=== PATIENT | male | born 1945 | race Caucasian/White ===

== ENCOUNTER 2019-10-20 08:22 | Outpatient (CLI) | payer MEDICARE, SELFPAY ==
--- NOTE | ~2019-10-20 | XR_ITS ---
EXAMINATION: XR abdomen/kub 1V INDICATION: Left-sided kidney stone TECHNIQUE: Supine views of the abdomen were obtained on 2 radiographs. COMPARISON: 04/15/2019 FINDINGS: An unchanged 6 mm stone projects in the lower pole of the right kidney and a 3 mm stone is seen in the upper pole. There is a stable 5 mm stone of the left kidney upper pole. Phleboliths of th e pelvis are unchanged in configuration. Calcifications of the right upper quadrant just right of mid line may reflect gallstones. The bowel gas pattern is normal. There is mild lumbar spondylosis and mi ld right hip osteoarthritis. IMPRESSION: 1. Bilateral nephrolithiasis. Reviewed, dictated and finalized at location A. [employer]
== END 2019-10-20 08:23 | disposition home or self-care (01) ==
LOC: ANHIMG 08:30
PROVIDERS: PCP Physician Assistant; Visit Provider Urology
DX: N20.0 Calculus of kidney (principal)
CPT/HCPCS: 74018

== ENCOUNTER 2020-11-15 11:25 | Outpatient (CLI) | payer MEDICARE, SELFPAY ==
--- NOTE | ~2020-11-15 | XR_ITS ---
EXAMINATION: XR abdomen/kub 1V EXAM DATE: 11/15/2020 11:49 INDICATION: Left kidney stone. TECHNIQUE: Frontal projection of the upper abdomen, frontal projection lower abdomen/pelvis for inter pretation. Comparison is made to prior examination from 10/20/2019. FINDINGS: There is moderate amount of colonic stool and gas. This is obscuring the renal contours. No small bowel dilation, nonobstructive bowel gas pattern. Probable reidentification bilateral nephr olithiasis measuring about 5 mm on the right. Calcifications in the pelvis are believed to be phlebol iths. There is no organomegaly suspected. The bones are unremarkable. There is no free intrape ritoneal air. The lung bases are clear. IMPRESSION: Nephrolithiasis. Reviewed, dictated and finalized at location A. IMPRESSION: Nephrolithiasis.
== END 2020-11-15 11:26 | disposition home or self-care (01) ==
PROVIDERS: PCP Physician Assistant; Visit Provider Urology
DX: N20.0 Calculus of kidney (principal)
CPT/HCPCS: 74018

== ENCOUNTER 2021-11-13 09:14 | Outpatient (CLI) | payer MEDICARE, SELFPAY ==
--- NOTE | ~2021-11-13 | XR_ITS ---
XR abdomen/kub 1V 11/13/2021 09:31 INDICATION: Renal stone TECHNIQUE: KUB COMPARISON: Comparison to multiple prior studies sequentially, with oldest reviewed study dated 10/19. FINDINGS: Bowel gas pattern is normal. There is no evidence of free air, mass, organomegaly, ascites or obstruction. Stable bilateral renal stones. The bones appear intact. There are pelvic phleboliths . Lung bases are unremarkable. IMPRESSION: 1: Bilateral nephrolithiasis.. Reviewed, dictated and finalized at location B.
== END 2021-11-13 09:15 | disposition home or self-care (01) ==
PROVIDERS: PCP Physician Assistant; Visit Provider Urology
DX: N20.0 Calculus of kidney (principal)
CPT/HCPCS: 74018

== ENCOUNTER 2022-11-19 09:43 | Outpatient (CLI) | payer MEDICARE, SELFPAY ==
--- NOTE | ~2022-11-19 | XR_ITS ---
EXAMINATION: XR abdomen/kub 1V INDICATION: Nephrolithiasis TECHNIQUE: Supine views of the abdomen were obtained on 2 radiographs. COMPARISON: 11/13/2021 FINDINGS: There is a stable 5 mm stone projecting in the right kidney lower pole. Stable stones measu ring 3 mm of the left kidney. No stones are identified along the expected courses of the ureters or w ithin the urinary bladder. There are phleboliths of the pelvis. The bowel gas pattern is normal. IMPRESSION: 1. Stable bilateral nephrolithiasis. Reviewed, dictated and finalized at location L.
== END 2022-11-19 09:44 | disposition home or self-care (01) ==
PROVIDERS: PCP Physician Assistant; Visit Provider Urology
DX: N20.0 Calculus of kidney (principal)
CPT/HCPCS: 74018

== ENCOUNTER 2023-12-04 14:08 | Outpatient (CLI) | payer MEDICARE, SELFPAY ==
--- NOTE | ~2023-12-04 | CT_ITS ---
EXAMINATION: CT abdomen pelvis wo con DATE: 12/04/2023 14:26 INDICATION: Left kidney stones follow-up TECHNIQUE: Computed tomography (CT) of the abdomen and pelvis was performed without intravenous contr ast. Automated exposure control and iterative reconstruction technique were employed. Exam dose: 213 .22 mGy-cm total exam DLP. COMPARISON: 11/19/2022 KUB FINDINGS: Posterior basilar right lower lobe prominent calcified pulmonary granuloma. Discoid atelect asis or scar, posterior basilar right lower lobe. The included lung bases are clear of consolidation. Right atrial and right ventricular pacemaker leads. Normal heart size. No pericardial or pleural effu timoteo. The liver, gallbladder, bile ducts, pancreas, pancreatic duct and spleen as well and is adrenal gland s appear normal on this limited noncontrast examination. 5.3 cm, 4.3 and 1.7 cm exophytic left renal probable cysts. Multiple bilateral nonobstructing renal calculi measuring up to 6 mm on each side, numbering approxim ately 8 total renal calculi on the right, 6 on the left. No right ureteral calculus. There are contiguous calculi of the distal left ureter, the most proximal measuring approximately 3.9 mm, the adjacent more distal calculus approximately 2.3 mm. No hydronephrosis is noted. No urinary bladder calculus. The prostate gland is unremarkable. There is atherosclerotic calcification but normal caliber of the abdominal aorta. No intraperitoneal or retroperitoneal or pelvic mass lesion or adenopathy or ascites. There are innumerable diverticula of the sigmoid and descending colon and occasional splenic flexure and right colon diverticula. No CT evidence of diverticulitis. Normal appendix. No bowel obstruction, bowel wall thickening, pneumatosis or intraperitoneal free air is detected. Diffuse idiopathic skeletal hyperostosis of the thoracic spine. 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 IMPRESSION: Nonobstructive nephrolithiasis 2 contiguous 4 and 2.3 mm distal left ureteral calculi, without hydronephrosis 3 left renal exophytic cysts Diverticulosis of the colon; no evidence of diverticulitis Normal appendix Reviewed, dictated and finalized at Location A. Reviewed, dictated and finalized at location B.
--- NOTE | ~2023-12-04 | XR_ITS ---
EXAMINATION: XR abdomen/kub 1V DATE: 12/04/2023 14:36 INDICATION: Left nephrolithiasis TECHNIQUE: A supine view of the abdomen on 2 radiographs was obtained. COMPARISON: CT dated 12/04/2023 and KUB dated 11/19/2022 FINDINGS: A few of the larger bilateral renal stones are visible on the plain radiographs with a few of the sma ller bilateral renal stones too small to be distinguished. There are couple larger calcified granulom a the medial posterior sulcus of the right lung. Combination of phleboliths and atherosclerotic calci fications in the pelvis on both the left and right. The pair of distal ureteral stones visualized on the prior CT can be seen projecting slightly cephalad to several unchanged phleboliths in the left he mipelvis. No dilated loops of gas-filled bowel to suggest obstruction. IMPRESSION: 1. Bilateral nephrolithiasis including a couple subtle small stones at the distalmost left ureter whi ch have been indicated on the image amongst a few of the chronic phleboliths. Reviewed, dictated and finalized at location A. IMPRESSION: 1. Bilateral nephrolithiasis including a couple subtle small stones at the dist almost left ureter which have been indicated on the image amongst a few of the chronic phleboliths.
== END 2023-12-04 14:09 | disposition home or self-care (01) ==
PROVIDERS: PCP Physician Assistant; Visit Provider Urology
DX: N20.0 Calculus of kidney (principal); K57.30 Diverticulosis of large intestine without perforation or abscess without bleeding
CPT/HCPCS: 74018; 74176

== ENCOUNTER 2024-12-14 01:15 | Day surgery (SDC) | payer MEDICARE, SELFPAY ==
[2024-12-07 10:17] VITALS: BMI 24.5
--- OUTSIDE RECORDS SUMMARY | 2024-12-14 01:17 | XMS_ITS | Encounter Summary ---
Author Organization [facility] Healthcare Address [address] [place] [address] Care Team Providers Care Pharmaceutical Physician Name Role Phone Vashti Garay FRONT [employer]AD Primary Care Provider [phone] Encounter Details Date Type Department Care Team (Late st Contact Info) Description 11/25/2024 Results Follow-Up [facility] Family Medicine at [address] [id number] Vashti Garay, [employer] [address] [place] [id number] Social History Tobacco Use Types Packs/Day Years Used Date Smoking Tobacco: Former Cigarettes Alcohol Use Standard Drinks/Week Comments Never 0 (1 standard drink = 0.6 oz pur e alcohol) AUDIT-C Answer Date Recorded Q1: How often do you have a drink containing alcohol? Never 11/24/2024 Q2: How many drinks containi ng alcohol do you have on a typical day when you are drinking? Patient does not drink Q3: How often do you have si x or more drinks on one occasion? Never 11/24/2024 PHQ-2 Answer Date Recorded PHQ-2 Total Score 0 06/16/2024 PHQ-9 Answer Date Recorded PHQ-9 Total Score 1 06/16/2024 Personal Safety Answer Date Recorded Have you ever been in or are you currently in a harmful physical or emotional relationship or is someone making you feel afraid or unsafe? Denies 06/26/2023 Sex and Gender Information Value Date Recorded Sex Assigned at Not on file Legal Sex Male 6:39 AM FINGERER Gender Identity Male 10/22/2021 9:05 AM FINGERER Sexual Orientation Not on file documented as of this encounter Plan of Treatment Not on file documented as of this encounter Visit Diagnoses Not on filedocumented in this encounter Care Teams Pharmaceutical Physician Relationship Specialty Start Date End Date Vashti Garay NP [address] [address] [place] [address] [place] [id number] PCP - General Family Medicine 11/24/24 documented as of this encounter
--- OUTSIDE RECORDS SUMMARY | 2024-12-14 01:18 | XMS_ITS | Clinical Summary ---
Author Organization [facility] at the Medical Office Building Address [address] [place] [id number] Care Team Providers Care Renewal Specialist Name Role Phone Tanisha Vashti MOORE Primary Care Provider [phone] Allergies No known active allergies Medications MULTIVITAMIN ORAL Rx: Multivitamin Act maira cholecalciferol , vitamin D3, (VITAMIN D3 ORAL) Take by mouth Active naloxone (NARCAN) 4 mg/actuation spray,non-aeros olIndications:C hronic narcotic use Administer 1 spray into affected nostril(s) as needed for opioid reversal Call 911. Administer a single spray in one nostril. Repeat every 3 minutes as needed if no or minimal response. 1 each 02/06/20 23 Active Restasis 0.05 % ophthalmic emulsion 07/17/20 23 Active aspirin 81 mg enteric coated tablet Take 1 tablet (81 mg total) by mouth daily Active tamsulosin (FLOMAX) 0.4 mg extended release capsuleIndicati ons:Benign prostatic hyperplasia with urinary retention Take 1 capsule (0.4 mg total) by mouth 2 (two) times a day 180 capsule 3 10/31/19 24 Active finasteride (PROSCAR) 5 mg tablet Take 1 tablet (5 mg total) by mouth daily 90 tablet 3 12/26/19 24 Active sotaloL (BETAPACE) 80 mg tablet Take 0.5 tablets (40 mg total) by mouth 2 (two) times a day 90 tablet 3 04/20/20 24 Active traZODone (DESYREL) 100 mg tablet Take 1 tablet (100 mg total) by mouth nightly 90 tablet 3 04/20/20 24 Active sertraline (ZOLOFT) 100 mg tabletIndicatio ns:Anxiety with depression TAKE 1 TABLET BY MOUTH EVERY DAY 90 tablet 1 09/03/19 25 Active atorvastatin (LIPITOR) 40 mg tablet Take 1 tablet (40 mg total) by mouth daily 90 tablet 1 09/03/19 25 Active cilostazoL (PLETAL) 100 mg tablet cilostazol 100 mg tablet Active dicyclomine (BENTYL) 10 mg capsuleIndicati ons:Irritable bowel syndrome, unspecified type Take 1 capsule (10 mg total) by mouth 4 (four) times a day 120 capsule 1 11/06/19 25 Active HYDROcodone-kwame taminophen (NORCO) 10-325 mg per tabletIndicatio ns:Pain Take 1 tablet by mouth every 4 (four) hours as needed for pain 180 tablet 11/22/[address] (PROTONIX) 40 mg EC tablet Take 1 tablet (40 mg total) by mouth daily 90 tablet 3 11/25/[address] (PROTONIX) 40 mg EC tablet Take 1 tablet (40 mg total) by mouth daily 90 tablet 3 12/26/19 24 025 Discontin ued(Reord er) famotidine (PEPCID) 40 mg tabletIndicatio ns:Other dysphagia Take 1 tablet (40 mg total) by mouth 2 (two) times a day 180 tablet 1 09/02/19 25 025 Discontin ued(Thera py completed ) HYDROcodone-kwame taminophen (NORCO) 10-325 mg per tabletIndicatio ns:Pain Take 1 tablet by mouth every 4 (four) hours as needed for pain 180 tablet 10/22/19 25 025 Discontin ued(Reord er) Active Problems Problem Noted Date Diagnosed Date GERD (gastroesophageal reflux disease) 5 Foot pain, bilateral 11/14/2023 Dysphagia 05/08/2023 Esophagogastric ulcer 05/08/2023 Actinic keratosis 03/19/2023 Assessment & Plan (03/19/2023 9:35 AM CDT): This is on his nose I am going to freeze it with liquid nitrogen I explained to him if it does not go away 100% we will need to do a punch biopsy Herpes zoster without complication 02/05/2023 Assessment & Plan (02/05/2023 2:09 PM CDT): A little late but will treat Anxiety with depression 04/25/2021 Assessment & Plan (02/05/2023 2:06 PM CDT): Now antonella will add low dose zoloft Assessment & Plan (04/09/2022 4:31 PM CDT): Not controlled, increasing medications, f/u 4 weeks Assessment & Plan (04/25/2021 11:24 AM CDT): This is uncontrolled, I am going to go ahead and start the patient on some BuSpar we did discuss the med use potential side effects he is going to give me an update in 6 weeks Hypertension 01/21/2020 Assessment & Plan (07/29/2023 3:39 PM PRODUCTION GRIP): This is a stable chronic condition. Monitor blood pressure, call if out of parameters as we discussed. Low sodium and caffeine diet. baby asa as discussed if applicable. Diet, exercise and weight reduction. Labs as ordered. F/U routine Assessment & Plan (04/23/2023 12:58 PM CDT): Patient presents with hypotension in office. Orthostatic vitals completed in office with normal results. CBC and CMP last completed 01/2023 with normal results. Patient to decrease sotalol from 60 mg BID to 40 mg BID. Patient to continue checking his blood pressure at home daily. Follow up in 2 weeks for blood pressure recheck. Assessment & Plan (03/19/2023 9:34 AM CDT): This is a stable chronic condition. We are going to leave him off his blood pressure medication due to some hypotension. Monitor blood pressure, call if out of parameters as we discussed. Low sodium and caffeine diet. baby asa as discussed if applicable. Diet, exercise and weight reduction. Labs as ordered. F/U routine Assessment & Plan (02/05/2023 2:04 PM CDT): Images from the original note were not included. This is a stable chronic condition. Monitor blood pressure, call if out of parameters as we discussed. Low sodium and caffeine diet. baby asa as discussed if applicable. Diet, exercise and weight reduction. Labs as ordered. F/U routine Assessment & Plan (11/14/2022 9:20 AM CDT): Images from the original note were not included. This is a stable chronic condition. Monitor blood pressure, call if out of parameters as we discussed. Low sodium and caffeine diet. baby asa as discussed if applicable. Diet, exercise and weight reduction. Labs as ordered. F/U routine Assessment & Plan (09/30/2022 4:18 PM PRODUCTION GRIP): Images from the original note were not included. This is a stable chronic condition. Monitor blood pressure, call if out of parameters as we discussed. Low sodium and caffeine diet. baby asa as discussed if applicable. Diet, exercise and weight reduction. Labs as ordered. F/U routine Assessment & Plan (06/11/2022 8:59 AM CDT): Images from the original note were not included. This is a stable chronic condition. Monitor blood pressure, call if out of parameters as we discussed. Low sodium and caffeine diet. baby asa as discussed if applicable. Diet, exercise and weight reduction. Labs as ordered. F/U routine Assessment & Plan (04/09/2022 4:32 PM CDT): Images from the original note were not included. This is a stable chronic condition. Monitor blood pressure, call if out of parameters as we discussed. Low sodium and caffeine diet. baby asa as discussed if applicable. Diet, exercise and weight reduction. Labs as ordered. F/U routine Assessment & Plan (04/24/2021 10:04 AM CDT): Images from the original note were not included. This is a stable chronic condition. Monitor blood pressure, call if out of parameters as we discussed. Low sodium and caffeine diet. baby asa as discussed if applicable. Diet, exercise and weight reduction. Labs as ordered. F/U routine Assessment & Plan (12/28/2020 3:29 PM CDT): This is a stable chronic condition. Monitor blood pressure, call if out of parameters as we discussed. Low sodium and caffeine diet. baby asa as discussed if applicable. Diet, exercise and weight reduction. Labs as ordered. F/U routine Irritable bowel syndrome 11/05/2018 Overview (02/15/2019): diet refill meds, add fibner, watch diet, discussed he should have another colonoscopy, he will consider Assessment & Plan (07/29/2023 3:39 PM PRODUCTION GRIP): This is diet controlled Assessment & Plan (03/19/2023 9:34 AM CDT): Currently controlled with diet will continue to follow Assessment & Plan (02/05/2023 2:05 PM CDT): Diet controlled Assessment & Plan (11/14/2022 9:20 AM CDT): controlled Assessment & Plan (09/30/2022 4:18 PM PRODUCTION GRIP): Diet controlled Assessment & Plan (05/15/2022 11:44 AM CDT): Controlled with diet Assessment & Plan (04/09/2022 4:32 PM CDT): Diet and fiber Assessment & Plan (11/07/2021 1:51 PM PRODUCTION GRIP): Diet controlled Assessment & Plan (04/18/2020 9:57 AM CDT): This is currently controlled with diet will continue to follow BMI 26.0-26.9,adult 06/11/2018 Assessment & Plan (10/19/2020 9:59 AM PRODUCTION GRIP): Healthy diet Benign prostatic hyperplasia 03/30/2018 Assessment & Plan (04/09/2022 4:32 PM CDT): Well controlled Assessment & Plan (04/24/2021 10:03 AM CDT): Stable and continue meds Assessment & Plan (10/19/2020 9:58 AM PRODUCTION GRIP): Controlled with meds Assessment & Plan (04/18/2020 9:56 AM CDT): We did discuss possibly increasing patient's medication 2.8 to see if this actually helps with his BPH patient will give me an update Assessment & Plan (12/27/2019 10:31 AM CDT): CPM, f/u prn Assessment & Plan (12/13/2019 10:19 AM CDT): Patient is to continue his current medication but he is to take his Flomax in the evenings before he goes to bed this may help with his lightheadedness Mixed hyperlipidemia 03/30/2018 Assessment & Plan (07/29/2023 3:39 PM PRODUCTION GRIP): Patient is to continue present medications, work on diet and exercise as discussed, we did discuss the medications and potential side effects and signs and symptoms that would warrant calling office. Follow up routine. Assessment & Plan (03/19/2023 9:34 AM CDT): Patient is to continue present medications, work on diet and exercise as discussed, we did discuss the medications and potential side effects and signs and symptoms that would warrant calling office. Follow up routine. Assessment & Plan (02/05/2023 2:05 PM CDT): Patient is to continue present medications, work on diet and exercise as discussed, we did discuss the medications and potential side effects and signs and symptoms that would warrant calling office. Follow up routine. Assessment & Plan (11/14/2022 9:20 AM CDT): Patient is to continue present medications, work on diet and exercise as discussed, we did discuss the medications and potential side effects and signs and symptoms that would warrant calling office. Follow up routine. Assessment & Plan (09/30/2022 4:18 PM PRODUCTION GRIP): Patient is to continue present medications, work on diet and exercise as discussed, we did discuss the medications and potential side effects and signs and symptoms that would warrant calling office. Follow up routine. Assessment & Plan (06/11/2022 8:59 AM CDT): Patient is to continue present medications, work on diet and exercise as discussed, we did discuss the medications and potential side effects and signs and symptoms that would warrant calling office. Follow up routine. Assessment & Plan (05/15/2022 11:44 AM CDT): Patient is to continue present medications, work on diet and exercise as discussed, we did discuss the medications and potential side effects and signs and symptoms that would warrant calling office. Follow up routine. Assessment & Plan (04/09/2022 4:32 PM CDT): Patient is to continue present medications, work on diet and exercise as discussed, we did discuss the medications and potential side effects and signs and symptoms that would warrant calling office. Follow up routine. Assessment & Plan (12/28/2020 3:30 PM CDT): Patient is to continue present medications, work on diet and exercise as discussed, we did discuss the medications and potential side effects and signs and symptoms that would warrant calling office. Follow up routine. Assessment & Plan (10/19/2020 9:58 AM PRODUCTION GRIP): Patient is to continue present medications, work on diet and exercise as discussed, we did discuss the medications and potential side effects and signs and symptoms that would warrant calling office. Follow up routine. Assessment & Plan (04/18/2020 9:58 AM CDT): Continue current medications and diet labs as ordered follow-up routine Assessment & Plan (12/27/2019 10:31 AM CDT): Patient is to continue present medications, work on diet and exercise as discussed, we did discuss the medications and potential side effects and signs and symptoms that would warrant calling office. Follow up routine. Assessment & Plan (12/13/2019 10:19 AM CDT): Patient is to continue present medications, work on diet and exercise as discussed, we did discuss the medications and potential side effects and signs and symptoms that would warrant calling office. Follow up routine. Sick sinus syndrome (CMS/HCC) 03/30/2018 Overview (02/15/2019): seeing cardiology, has pace maker Assessment & Plan (02/05/2023 2:05 PM CDT): Stable and seeing cardiology Assessment & Plan (05/15/2022 11:46 AM CDT): Patient is stable and had pace maker Assessment & Plan (04/09/2022 4:33 PM CDT): Stable seeing cardiology Assessment & Plan (11/07/2021 1:51 PM PRODUCTION GRIP): Seeing cardiology Assessment & Plan (04/24/2021 10:04 AM CDT): Cardiology following Assessment & Plan (10/19/2020 9:58 AM PRODUCTION GRIP): Seeing cardiology and doing well Assessment & Plan (04/18/2020 9:58 AM CDT): Patient is asymptomatic and followed by cardiology and on a baby aspirin Assessment & Plan (12/27/2019 10:32 AM CDT): Has pacemaker, seeing Cardiology 20 january Assessment & Plan (12/13/2019 10:20 AM CDT): Patient has a pacemaker and he is asymptomatic in clinic today I 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 Risk for falls 03/30/2018 History of diverticulitis 03/30/2018 Neuropathy, peripheral 11/14/2017 Assessment & Plan (07/29/2023 3:40 PM PRODUCTION GRIP): Patient is very legitimate and has had a really hard time with this and I see no reason to even try to taper as is the only thing that gives him relief. My collaborating partner is moving away from petroleum [employer] plant operator pain management therefore I also have to do the same I offered patient to go see a pain management specialists he was not happy about this he asked if there was someone else I told him about my previous partner at [facility] Dr. Joe Roe I let him know that he was in excellent physician in that the last I heard he was willing to treat chronic pain Assessment & Plan (03/19/2023 9:35 AM CDT): This is ongoing and chronic patient has filled Neurontin and Lyrica and other modalities for neuropathy he has been on chronic hydrocodone and for him this is becoming quality of life issue Patient and I had a discussion about the current medications. Patient has been using his medications for a long period of time and has shown no signs of abuse. For this individual this has become a quality of life issue. We did discuss concerns of continuous use of this medication to include abuse and the fact that they are habit-forming and have the potential for numerous side effects. Patient verbalized they understand my concerns and wished to continue current treatment. Assessment & Plan (02/05/2023 2:05 PM CDT): controlled Assessment & Plan (11/14/2022 9:20 AM CDT): Medications as ordered Assessment & Plan (09/30/2022 4:19 PM PRODUCTION GRIP): This is chronic, exhausted everything Patient and I had a discussion about the current medications. Patient has been using his medications for a long period of time and has shown no signs of abuse. For this individual this has become a quality of life issue. We did discuss concerns of continuous use of this medication to include abuse and the fact that they are habit-forming and have the potential for numerous side effects. Patient verbalized they understand my concerns and wished to continue current treatment. Assessment & Plan (05/15/2022 11:45 AM CDT): Not controlled, failed neurontin, can not afford lyrica, had numerous EMG in past, possible radicular from back but not having much s/s, seeking advice from neurology Assessment & Plan (11/07/2021 1:51 PM PRODUCTION GRIP): Chronic ongoing Assessment & Plan (12/28/2020 3:31 PM CDT): This is a chronic ongoing condition. I spent a lengthy amount of time explained to the patient this is exactly why we do not like to use hydrocodone for neuropathic pain I understand his situation he has been doing this for many years we have an agreement that he will no longer self titrate his medications he will never take more than what is being prescribed he agrees to this and were going to talk every 30 days and I am going to adjust his hydrocodone to we get it down to 0. I gave him some information on local place the treats neuropathic pain and I gave him some Atarax for the anxiety and nausea. Patient verbalized agreement and understanding. Personal history of nicotine dependence 10/13/19 16 Hypercholesterolemia 10/13/2015 Assessment & Plan (11/07/2021 1:51 PM PRODUCTION GRIP): Patient is to continue present medications, work on diet and exercise as discussed, we did discuss the medications and potential side effects and signs and symptoms that would warrant calling office. Follow up routine. Assessment & Plan (04/24/2021 10:04 AM CDT): Patient is to continue present medications, work on diet and exercise as discussed, we did discuss the medications and potential side effects and signs and symptoms that would warrant calling office. Follow up routine. Stenosis of carotid artery 03/14/2014 Presence of cardiac pacemaker 08/23/2013 Paroxysmal atrial fibrillation 08/20/2013 Resolved Problems Problem Noted Date Diagnosed Date Resolved Date Dysphagia 05/08/2023 11/24/2024 LLQ pain 06/11/2022 11/24/2024 Assessment & Plan (06/11/2022 9:03 AM CDT): Mild today, stop nuts and seeds, given PMHX will treat, discussed s/s that would warrant ER Abnormal EKG 11/24/2020 11/24/2024 Other dysphagia 04/18/2020 11/24/2024 Assessment & Plan (10/19/2020 10:05 AM PRODUCTION GRIP): Currently not an issue, if this becomes an issue will need another EGD, reviewed results and added pepcid ac in evening, call with f/u 4 weeks Assessment & Plan (04/18/2020 9:54 AM CDT): This is new, no GERD, will get EGD Chronic midline thoracic back pain 02/16/2019 04/13/2020 Assessment & Plan (11/14/2022 9:21 AM CDT): Patient and I had a discussion about the current medications. Patient has been using his medications for a long period of time and has shown no signs of abuse. For this individual this has become a quality of life issue. We did discuss concerns of continuous use of this medication to include abuse and the fact that they are habit-forming and have the potential for numerous side effects. Patient verbalized they understand my concerns and wished to continue current treatment. Failed numerous PT and Pain mgt and will not do surgery Assessment & Plan (12/28/2020 3:29 PM CDT): This is currently controlled Neuropathy 03/30/2018 11/24/2024 Overview (02/15/2019): has been seeing pain mgt familia Assessment & Plan (04/09/2022 4:33 PM CDT): Sending to podiatry for neuropathy Assessment & Plan (10/19/2020 9:58 AM PRODUCTION GRIP): Taking as needed medical chantell, not daily, knows he can not take with hydrocodone Assessment & Plan (04/18/2020 9:50 AM CDT): Failed all medications and seen pain Mgt 3 times, nothing works, taking hydrocodone and that gets him by, brother has it also, this is not well controlled will add a muscle relaxer, he has also seen neurology a few times Patient and I had a discussion about the current medications. Patient has been using his medications for a long period of time and has shown no signs of abuse. For this individual this has become a quality of life issue. We did discuss concerns of continuous use of this medication to include abuse and the fact that they are habit-forming and have the potential for numerous side effects. Patient verbalized they understand my concerns and wished to continue current treatment. Assessment & Plan (12/27/2019 10:31 AM CDT): CPM, all other treatments failed Encounter for screening for other disorder 03/30/2018 11/24/2024 Assessment & Plan (04/24/2021 10:03 AM CDT): No depression Assessment & Plan (10/19/2020 9:58 AM PRODUCTION GRIP): No depression Assessment & Plan (04/18/2020 9:57 AM CDT): Patient denies any depression Encounter for general adult medical examination without abnormal findings 03/30/2018 Assessment & Plan (04/24/2021 10:03 AM CDT): HEALTHCARE MAINTENANCE updated Assessment & Plan (04/18/2020 9:57 AM CDT): As above Encounter for general adult medical examination with abnormal findings 03/30/201811/24 Assessment & Plan (05/15/2022 11:44 AM CDT): HEALTHCARE MAINTENANCE updated Assessment & Plan (04/18/2020 9:57 AM CDT): Healthcare maintenance updated, we did discuss getting the shingles vaccine, healthy diet and exercise. Kidney stones 03/30/2018 11/24/2024 Dorsalgia, unspecified 03/30/201804/13 Other chronic pain 03/30/2018 5 Overview (10/18/2019): DDD Assessment & Plan (09/30/2022 4:19 PM PRODUCTION GRIP): Patient and I had a discussion about the current medications. Patient has been using his medications for a long period of time and has shown no signs of abuse. For this individual this has become a quality of life issue. We did discuss concerns of continuous use of this medication to include abuse and the fact that they are habit-forming and have the potential for numerous side effects. Patient verbalized they understand my concerns and wished to continue current treatment. Assessment & Plan (04/09/2022 4:33 PM CDT): Weaning off pain meds Assessment & Plan (11/07/2021 1:50 PM PRODUCTION GRIP): This is chronic, he failed PY, did numerous pain mgt and now only option is pain mgt by medications Patient and I had a discussion about the current medications. Patient has been using his medications for a long period of time and has shown no signs of abuse. For this individual this has become a quality of life issue. We did discuss concerns of continuous use of this medication to include abuse and the fact that they are habit-forming and have the potential for numerous side effects. Patient verbalized they understand my concerns and wished to continue current treatment. Assessment & Plan (04/24/2021 10:12 AM CDT): This is chronic, trying to taper off hydrocodone and bridge with T3, Patient and I had a discussion about the current medications. Patient has been using his medications for a long period of time and has shown no signs of abuse. For this individual this has become a quality of life issue. We did discuss concerns of continuous use of this medication to include abuse and the fact that they are habit-forming and have the potential for numerous side effects. Patient verbalized they understand my concerns and wished to continue current treatment. Assessment & Plan (12/28/2020 3:31 PM CDT): As above Assessment & Plan (12/13/2019 10:19 AM CDT): Patient and I had a discussion about the current medications. Patient has been using his medications for a long period of time and has shown no signs of abuse. For this individual this has become a quality of life issue. We did discuss concerns of continuous use of this medication to include abuse and the fact that they are habit-forming and have the potential for numerous side effects. Patient verbalized they understand my concerns and wished to continue current treatment. Other longterm (current) drug therapy 11/01/2016 11/24/2024 Chest pain 03/11/2014 11/24/2024 Dizziness 04/30/2013 11/24/2024 Fatigue 04/30/2013 11/24/2024 Encounters Date Type Department Care Team Description 11/25/2024 10:05 AM CDT Lab [facility] Medical Office [address]ld[address] [place] [id number] Other polyneuropathy 11/25/2024 Results Follow-Up [facility] at [address] [place] [address] Vashti Garay NP 11/24/2024 10:00 AM CDT Office Visit [facility] Medical [facility] at [address] [place] [address] Vashti Garay NP Healthcare maintenance (Primary Dx); Need for hepatitis B screening test; Other polyneuropathy; Sick sinus syndrome (CMS/HCC) (HCC); Gastroesophageal reflux disease, unspecified whether esophagitis present; Tinnitus of both ears; Stage 3b chronic kidney disease (HCC) 11/05/2024 9:45 AM PRODUCTION GRIP Lab [facility] OP Lab [address] [place] [address] Impaired fasting glucose; Primary hypertension; Mixed hyperlipidemia; Stage 3a chronic kidney disease (HCC) 11/05/2024 9:30 AM PRODUCTION GRIP Office Visit [facility] [address] [phone] Joe Roe MD Primary hypertension (Primary Dx); Mixed hyperlipidemia; Sick sinus syndrome (HCC); Pacemaker; Impaired fasting glucose; Stage 3a chronic kidney disease (HCC); Numbness of feet; Bilateral foot pain; Poor balance; Other polyneuropathy; Other chronic pain; Benign prostatic hyperplasia with weak urinary stream; Irritable bowel syndrome, unspecified type; Gastroesophageal reflux disease without esophagitis; Insomnia, unspecified type 09/15/2024 Letter (Out) [address] [id number] from Last 3 Months Immunizations Immunization Administration Dates Next Due COVID-19 MRNA (MODERNA) .5 M L (50 MCG) VACCINE (12 YEARS AND UP) 05/22/2023 Influenza, Quad, Adjuvantate d, Intramuscular 05/22/2023 Influenza, Quadrivalent, Hig h Dose, Preservative Free, Intrr 04/30/2022,05/08/2021,04/29/2020 Influenza, Quadrivalent, Spl it, Intramuscular 06/11/2018 Influenza, Trivalent, High D ose, Split, Preservative Free, Intramuscular 05/24/2024,06/10/2019,06/11/2018,05/19,05/27/2016,05/27/2015 Influenza, Trivalent, IM (MDV) 06/21/2014,2012 Influenza, Unspecified 05/22/2023,2021,05/08/2021,04/29,06/10/2019,06/11/2018 Pfizer SARS-CoV-2 Monovalent Vaccination (12+ Yrs) PURPLE 06/01/2021,11/03/2020,10/09/2020 Pfizer Sars-Cov-2 Bivalent V accination (12+ YRS) 05/10/2022 Pneumococcal Conjugate PCV 13 07/25/2015 Pneumococcal Polysaccharide PPV23 10/18/2019,07/2017 RSV Vaccine, Pref, Recombina nt, Subunit, Adjuvanted, PF, IM (Arexvy) 10/28/2023 Tdap 09/26/2023 ZOSTER Recombinant 04/30/2024,09/27/2023 Surgical History Surgery Date Site/Laterality Comments OTHER SURGICAL HISTORY 12/30/2021 - 01/29/2022 pacemaker changed Medical History Medical History Date Comments Hyperlipidemia GERD (gastroesophageal reflux disease) Anxiety Arthritis Cataract Kidney stone Colon polyp Dysphagia Hypertension Sick sinus syndrome (HCC) Family History Medical History Relation Name Comments Cancer Brother Nikhil Cancer Father Donato Heart disease Father Donato Hypertension Father Donato Cancer Mother Marsha Colon cancer Paternal Grandfather Relation Name Status Comments Brother Nikhil Father Donato (Age 75) Mother Marsha (Age 69) Paternal Grandfather Social History Tobacco Use Types Packs/Day Years Used Date Smoking Tobacco: Former Cigarettes Tobacco Cessation:Counseling Given: Not Answered Alcohol Use Standard Drinks/Week Comments Never 0 [...] on file Legal Sex Male 6:39 AM PRODUCTION GRIP Gender Identity Male 10/22/2021 9:05 AM PRODUCTION GRIP Sexual Orientation Not on file Obstetrics History Last Filed Vital Signs Vital Sign Reading Time Taken Comments Blood Pressure 120/90 11/24/2024 10:01 AM CDT Pulse 70 11/24/2024 10:01 AM CDT Temperature 36.4 C (97.6 F) 11/24/2024 10:01 AM CDT Respiratory Rate 18 11/24/2024 10:01 AM CDT Oxygen Saturation 97% 11/24/2024 10:01 AM CDT Inhaled Oxygen Concentration - - Weight 82.3 kg (181 lb 8 oz) 11/24/2024 10:01 AM CDT Height 182.9 cm (6') 11/24/2024 10:01 AM CDT Body Mass Index 24.62 11/24/2024 10:01 AM CDT Plan of Treatment Health Maintenance Due Date Last Done Comments Hepatitis B Screening 1963 Covid-19 Vaccine (2023-2 5 season) 2024 04/30/2024, 05/22/2023, 05/10/2022, Additional history exists Depression Screening 06/16/2025 06/16/2024, 06/16/2024, 09/26/2023, Additional history exists Fall Risk Assessment 06/16/2025 06/16/2024, 06/16/2023, 05/15/2022, Additional history exists Well Visit 65+ 06/16/2025 06/16/2024, 06/01, 06/16/2023, Additional history exists DTaP/Tdap/Td Vaccine (2 - Td or Tdap) 09/26/2033 09/26/2023 Hepatitis C Screening Completed 10/18/2019 Pneumococcal vaccine 65+ Completed 020, 01/09/2017, 07/25/2015 Abdominal Aortic Aneurysm (A AA) Screen Completed 10/26/2019 Colon Cancer Screening-CT Colonography Discontinued 10/27/2020 Colon Cancer Screening-Colonoscopy Discontinued 10/27/2020 Colon Cancer Screening-DNA Stool Discontinued 10/27/19 Colon Cancer Screening-FIT Discontinued 10/27/2020 Colon Cancer Screening-FOBT Discontinued 10/27/2020 Colon Cancer Screening-Sigmoidoscopy Discontinued 10/27/2020 Colorectal Cancer Screening Discontinued Zoster Vaccine Completed 04/30/2024, 09/27/2023 Influenza Vaccine Completed 05/24/2024, , 05/22/2023, Additional history exists Procedures Procedure Name Priority Date/Time Associated Diagnosis Comments OPIATES CONFIRMATION MS, URINE Routine 11/25/2024 10:07 AM CDT Other polyneuropathy DRUGS OF ABUSE SCREEN, URINE WITH REFLEX CONFIRMATION Routine 11/25/2024 10:07 AM CDT Other polyneuropathy EGFR Routine 11/05/2024 9:20 AM PRODUCTION GRIP Primary hypertension Mixed hyperlipidemia Impaired fasting glucose Stage 3a chronic kidney disease (HCC) DIFFERENTIAL AUTO Routine 11/05/2024 9:2 0 AM PRODUCTION GRIP Primary hypertension LIPID PANEL Routine 11/05/2024 9:20 AM PRODUCTION GRIP Primary hypertension Mixed hyperlipidemia COMPREHENSIVE METABOLIC PANEL Routine 11/05/2024 9:20 AM PRODUCTION GRIP Primary hypertension Mixed hyperlipidemia Impaired fasting glucose Stage 3a chronic kidney disease (HCC) CBC WITH AUTO DIFFERENTIAL Routine 11/05/2024 9:20 AM PRODUCTION GRIP Primary hypertension ALBUMIN CREATININE RATIO, URINE Routine 11/05/2024 9:20 AM PRODUCTION GRIP Primary hypertension HEMOGLOBIN A1C Routine 11/05/2024 9:20 AM PRODUCTION GRIP Impaired fasting glucose COLONOSCOPY Routine 10/27/2020 US ABDOMINAL AORTA 10/26/2019 10 :04 AM PRODUCTION GRIP HEPATITIS C ANTIBODY Routine 10/18/2019 10:38 AM PRODUCTION GRIP Need for hepatitis C screening test from Last 3 Months or Most Recently Relevant to Health Maintenance Results * (ABNORMAL) Drugs of Abuse Screen, Urine with Reflex Confirmation (11/25/2024 10:07 AM CDT) Pathologist [facility] Amphetamine, ur Not Detected CutOff 500ng/mL Comment: Interpretive Data - Amphetamines: Samples containing greater than 500 ng/mL d-methamphetamine or other cross-reacting amphetamine compounds are reported as positive. Amphetamine immunoassays are subject to significant false positive rates due to cross-reactivity of non-amphetamine drugs. Confirmatory testing required for definitive results. Current Interpretive Data was last reviewed 2023. Barbiturates, ur Not Detected CutOff 200ng/mL KRISTINE MATOS Comment: Interpretive Data - Barbiturates: Samples containing greater than 200 ng/mL secobarbital or other cross-reacting barbiturate compounds are reported as positive. False positive and false negative results are possible. Confirmatory testing required for definitive results. Current Interpretive Data was last reviewed 2023. Benzodiazepines, ur Not Detected CutOff 100ng/mL [facility] Comment: Interpretive Data - Benzodiazepines: Samples containing greater than 100 ng/mL nordiazepam or other cross-reacting compounds are reported as positive. False positive and false negative results are possible. Confirmatory testing required for definitive results. Current Interpretive Data was last reviewed 2023. Cannabinoids, ur Not Detected CutOff 50 ng/mL [facility] Comment: Interpretive Data - Cannabinoids: Samples containing greater than 50 ng/mL delta-9 THC -COOH or other cross- reacting compounds are reported as positive. False positive and false negative results are possible. Confirmatory testing required for definitive results. Current Interpretive Data was last reviewed 2023. Cocaine, ur Not Detected CutOff 150ng/mL [facility] Comment: Interpretive Data - Cocaine: Samples containing greater than 150 ng/mL benzoylecgonine or other cross- reacting compounds are reported as positive. False positive and false negative results are possible. Confirmatory testing required for definitive results. Current Interpretive Data was last reviewed 2023. Fentanyl, Ur Not Detected CutOff 5 ng/mL [facility] Comment: Interpretive Data - Fentanyl: Samples containing greater than 5 ng/mL norfentanyl, fentanyl, or other cross-reacting fentanyl compounds are reported as positive. False positive and false negative results are possible. Confirmatory testing required for definitive results. Current Interpretive Data was last reviewed 2023. Methadone, ur Not Detected CutOff 300ng/mL [facility] Comment: Interpretive Data - Methadone: Samples containing greater than 300 ng/mL d,l-methadone or other cross-reacting compounds are reported as positive. False positive and false negative results are possible. Confirmatory testing required for definitive results. Current Interpretive Data was last reviewed 2023. Opiates, ur Screen Positive, presumptive (A) CutOff 300ng/mL [facility] Comment: Interpretive Data - Opiates: Samples containing greater than 300 ng/mL morphine or other cross-reacting compounds are reported as positive. False positive and false negative results are possible. Confirmatory testing required for definitive results. Current Interpretive Data was last reviewed 2023. Oxycodone, ur Not Detected CutOff 100ng/mL [facility] Comment: Interpretive Data - Oxycodone: Samples containing greater than 100 ng/mL oxycodone or other cross-reacting compounds are reported as positive. False positive and false negative results are possible. Confirmatory testing required for definitive results. Current Interpretive Data was last reviewed 2023. Phencyclidine, ur Not Detected CutOff 25 ng/mL [facility]ST[facility] MATOS Comment: Interpretive Data - Phencyclidine: Samples containing greater than 25 ng/mL phencyclidine or other cross-reacting compounds are reported as positive. False positive and false negative results are possible. Confirmatory testing required for definitive results. Current Interpretive Data was last reviewed 2023. Urine Creatinine 119 mg/dL K[facility]STINE MATOS Comment: Interpretive Data Urine Creatinine: < 10 mg/dL is extremely dilute = or > 10 but < 20 mg/dL is dilute = or > 20 mg/dL is normal Current Interpretive Data was last revised on 2017. Urine 11/25/2024 10:0 7 AM CDT 11/25/2024 12:25 PM CDT Narrative KRISTINE - 11/25/2024 1:12 PM CDT Drug of Abuse screening is performed by immunoassay for medical purposes only. This is not to be used for Pain Management purposes. If Detected, confirmation testing will be performed for Amphetamines, Cocaine, Fentanyl, Methadone, Opiates, Oxycodone or Phencyclidine. Vashti Garay NP LAB URINE ORDERABLES Final Re sult KRISTINE [address] [facility] Department [place] [address] * (ABNORMAL) Opiates Confirmation, Urine (11/25/2024 10:07 AM CDT) Codeine Conf, Ur Does Not Confirm CutOff 50 ng/mL Comment:Testing performed by : [facility], [address] [place]., [address] 6- Acetylmorphine Conf, Ur Does Not Confirm CutOff 10 ng/mL KRISTINE Comment:Testing performed by : [facility], [address] [place]., [address] Hydrocodone Conf, Ur Confirmed Positive(A) CutOff 50 ng/mL KRISTINE MATOS Comment:Testing performed by : [facility], [address] [place]., [address] Morphine Conf, Ur Does Not Confirm CutOff 50 ng/mL KRISTINE MATOS Comment:Testing performed by : [facility], [address] [place]., [address] Hydromorphone Conf, Ur Does Not Confirm CutOff 50 ng/mL KRISTINE MATOS Comment: Interpretive Data This test detects the presence or absence of drug compounds using LC Tandem mass spectrometry and is not intended to assess compliance with prescribed medications. While this test is highly specific, false positive and false negative results may occur in very rare circumstances. Contact the laboratory for consultation, if needed. Performance characteristics were determined by the [facility] in a manner consistent with CLIA requirement and has not been cleared or approved by the U.S. Food and Drug Administration. Current interpretive data was last revised 2020. Testing performed by: [facility], [address] [place]., [address] Urine 11/25/2024 10:0 7 AM CDT 11/25/2024 3:19 PM CDT us Vashti Garay NP LAB URINE ORDERABLES Final Re sult KRISTINE [address] [facility] Department [place] [address] * (ABNORMAL) eGFR (11/05/2024 9:20 AM PRODUCTION GRIP) eGFR 44(L) >=60 mL/min/1. 73 m2 Comment: Interpretive Data Reference Interval Normal >/= 90 mL/min/1.73m2 Mildly decreased* 60 - 89 mL/min/1.73m2 Mildly to moderately decreased 45 - 59 mL/min/1.73m2 Moderately to severely decreased 30 - 44 mL/min/1.73m2 Severely decreased 15 - 29 mL/min/1.73m2 Kidney Failure < 15 mL/min/1.73m2 *Relative to young adult level Estimated glomerular filtration rate is determined by the 2020 CKD-EPI equation recommended by the National Kidney Foundation (A Unifying Approach to GFR Estimation: Recommendations of the NKF-ASK Task Force on Reassessing the Inclusion of Race in Diagnosing Kidney Disease, JASN 2020). The CKD-EPI equation should not be used for patients with unstable renal function and has not been validated in children and those over 70. Current interpretive data was last reviewed 2021. Testing performed by: [address] [address] Blood 11/05/2024 9:20 AM PRODUCTION GRIP 11/05/2024 12:22 PM PRODUCTION GRIP Joe Roe MD LAB BLOOD ORDERABLES Final Result KRISTINE [facility] Department [place] [address] * Differential, auto (11/05/2024 9:20 AM PRODUCTION GRIP) Neutrophil abs 3.3 1.5 - 6.5 K/cumm Comment:Testing performed by : [address] [address] Imm gran abs 0.0 0.0 - 0.1 K/cumm KRISTINE Comment:Testing performed by : [address] [address] Lymphocyte abs 1.6 0.8 - 3.3 K/cumm KRISTINE Comment:Testing performed by : [address] [address] Monocyte abs 0.6 0.2 - 0.8 K/cumm KRISTINE Comment:Testing performed by : [address] [address] Eosinophil abs 0.2 0.0 - 0.5 K/cumm KRISTINE Comment:Testing performed by : [address] [address] Basophil abs 0.1 0.0 - 0.1 K/cumm KRISTINE Comment:Testing performed by : [address] [address] Neutrophil pct 56.7 % [facility] Comment: Interpretive Data Percent cell count reference ranges are not reported, since discordance with absolute values may lead to misinterpretation of CBC data. Current Interpretive Data was last revised on 2017. Testing performed by: [address] [address] Imm gran pct 0.2 % [facility] Comment: Interpretive Data Percent cell count reference ranges are not reported, since discordance with absolute values may lead to misinterpretation of CBC data. Current Interpretive Data was last revised on 2017. Testing performed by: [address] [address] Lymphocyte pct 28.3 % [facility] Comment: Interpretive Data Percent cell count reference ranges are not reported, since discordance with absolute values may lead to misinterpretation of CBC data. Current Interpretive Data was last revised on 2017. Testing performed by: [address] [address] Monocyte pct 10.5 % [facility] Comment: Interpretive Data Percent cell count reference ranges are not reported, since discordance with absolute values may lead to misinterpretation of CBC data. Current Interpretive Data was last revised on 2017. Testing performed by: [address] [address] Eosinophil pct 3.3 % [facility] Comment: Interpretive Data Percent cell count reference ranges are not reported, since discordance with absolute values may lead to misinterpretation of CBC data. Current Interpretive Data was last revised on 2017. Testing performed by: [address] [address] Basophil pct 1.0 % [facility] Comment: Interpretive Data Percent cell count reference ranges are not reported, since discordance with absolute values may lead to misinterpretation of CBC data. Current Interpretive Data was last revised on 2017. Testing performed by: [address] [address] Blood 11/05/2024 9:20 AM PRODUCTION GRIP 11/05/2024 12:24 PM PRODUCTION GRIP us Joe Roe MD LAB BLOOD ORDERABLES Final Result [facility] [address] [facility] Department [place] [address] * (ABNORMAL) CBC with auto differential (11/05/2024 9:20 AM PRODUCTION GRIP) WBC 5.8 3.8 - 9.9 K/cumm Comment:Testing performed by : [address] [address] Hgb 14.7 13.0 - 17.5 g/dL KRISTINE Comment:Testing performed by : [address] [address] Hct 46.2 38.9 - 50.3 % KRISTINE Comment:Testing performed by : [address] [address] Plt 257 150 - 400 K/cumm KRISTINE Comment:Testing performed by : [address] [address] MPV 9.8 9.1 - 12.3 fL KRISTINE Comment:Testing performed by : [address] [address] RBC 4.65 4.30 - 5.80 M/cumm KRISTINE Comment:Testing performed by : [address] [address] MCV 99.4(H) 81.3 - 96.4 fL KRISTINE Comment:Testing performed by : [address] [address] MCH 31.6 27.1 - 33.3 pg KRISTINE Comment:Testing performed by : [address] [address] MCHC 31.8(L) 32.3 - 35.7 g/dL KRISTINE Comment:Testing performed by : [address] [address] RDW CV 13.1 11.1 - 14.9 % KRISTINE Comment:Testing performed by : [address], [address] RDW SD 47.8 35.7 - 48.1 fL KRISTINE MATOS Comment:Testing performed by : [address] [address] NRBC abs 0.00 0.00 - 0.01 K/cumm KRISTINE MATOS Comment:Testing performed by : [address] [address] Blood 11/05/2024 9:20 AM PRODUCTION GRIP 11/05/2024 12:24 PM PRODUCTION GRIP Joe Roe MD LAB BLOOD ORDERABLES Final Result Performing Organization Address City/[facility]/ZIP Co de Phone Number KRISTINE [address] [place] [place] [address] * Albumin Creatinine Ratio, Urine (11/05/2024 9:20 AM PRODUCTION GRIP) Pathologist [facility] Albumin Ur <12.0 mg/L Comment: Interpretive Data No reference range established. Current interpretive data was last revised 2019. Testing performed by: [address] [address] Creatinine Ur 155.0 mg/dL KRISTINE MATOS Comment: Interpretive Data No reference range established. Current interpretive data was last revised 2019. Testing performed by: [address] [address] Albumin Creatinine Ratio, Ur <8 1 - 29 mg/g KRISTINE MATOS Comment:Testing performed by : [address] [address] Urine 11/05/2024 9:20 AM PRODUCTION GRIP 11/05/2024 12:23 PM PRODUCTION GRIP Joe Roe MD LAB URINE ORDERABLES Final Result Performing Organization Address City/[facility]/ZIP Co de Phone Number KRISTINE [address] [facility] [place] [address] * Hemoglobin A1c (11/05/2024 9:20 AM PRODUCTION GRIP) Pathologist [facility] Hgb A1C 5.6 4.0 - 5.6 % Comment:Testing performed by : [address] [address] Estimated Average Glucose 114 mg/dL KRISTINE MATOS Comment: The ADA recommends reporting an estimated Average Glucose (eAG) with all Hemoglobin A1c results using the equation derived from a study of 507 normal and diabetic adults. Minority populations were underrepresented and children were not included. (Diabetes Care 31:4200-3591, 2008). The eAG is not equivalent to a fasting glucose. Testing performed by: [address] [address] Blood 11/05/2024 9:20 AM PRODUCTION GRIP 11/05/2024 12:24 PM PRODUCTION GRIP Joe Roe MD LAB BLOOD ORDERABLES Final Result KRISTINE MATOS [address] [facility] Department [place] [address] * (ABNORMAL) Lipid panel (11/05/2024 9:20 AM PRODUCTION GRIP) Cholesterol 191 30 - 199 mg/dL Comment: Interpretive Data Ages < or = 19 years Acceptable: <170 mg/dL Borderline high: 170-199 mg/dL High: >or= 200 mg/dL Ages > or = 20 years Desirable: <200 mg/dL Borderline high: 200-239 mg/dL High: >or= 240 mg/dL Literature References: 1. Expert Panel on Integrated Guidelines for Cardiovascular Health and Risk Reduction in Children and Adolescents. Pediatrics 2011;128:S213 2. NCEP Expert Panel. Circulation 2004;110:227 Current Interpretive Data was last revised on 2018. Testing performed by: [address] [address] Triglycerides 200(H) <=149 mg/dL KRISTINE MATOS Comment: Interpretive Data Ages < or = 9 years Acceptable: <75 mg/dL Borderline high: 75-99 mg/dL High: >or= 100 mg/dL Ages 10 to 20 years Acceptable: <90 mg/dL Borderline high: 90-129 mg/dL High: >or= 130 mg/dL Ages > or = 20 years Desirable: <150 mg/dL Borderline high: 150-199 mg/dL High: 200-499 mg/dL Very high: >or= 499 mg/dL Literature References: 1. Expert Panel on Integrated Guidelines for Cardiovascular Health and Risk Reduction in Children and Adolescents. Pediatrics 2011;128:S213 2. NCEP Expert Panel. Circulation 2004;110:227 Current Interpretive Data was last revised on 2018. Testing performed by: [address] [address] HDL 50 >=40 mg/dL [facility] Comment: Interpretive Data Ages < or = 19 years Acceptable: >45 mg/dL Borderline low: 40-45 mg/dL Low: <40 mg/dL Ages > or = 20 years Desirable: >or= 60 mg/dL Low: <40 mg/dL Literature References: 1. Expert Panel on Integrated Guidelines for Cardiovascular Health and Risk Reduction in Children and Adolescents. Pediatrics 2011;128:S213 2. NCEP Expert Panel. Circulation 2004;110:227 Current Interpretive Data was last revised on 2018. Testing performed by: [address] [address] LDL, calculated 106 <=129 mg/dL KRISTINE Comment: Interpretive Data Ages < or = 19 years Acceptable: <110 mg/dL Borderline high: 110-129 mg/dL High: >or= 130 mg/dL Ages > or = 20 years Optimal: <100 mg/dL Near optimal: 100-129 mg/dL Borderline high: 130-159 mg/dL High: >160 mg/dL Calculated using the Doimngo LDL-C estimating equation. This equation was implemented on 2024. Prior to this date LDL-C was estimated using the Friedewald equation. Literature References: 1. Expert Panel on Integrated Guidelines for Cardiovascular Health and Risk Reduction in Children and Adolescents. Pediatrics 2011;128:S213 2. NCEP Expert Panel. Circulation 2004;110:227 3. Domingo Wallace al. KAILA Cardiol. 2020 December 30;5(5):540-548. doi: 10.1001/[email or web address].2020.0013 Current Interpretive Data was last revised on 2024. Testing performed by: [address] [address] Non-HDL Cholesterol 141 mg/dL KRISTINE Comment: Interpretive Data Ages < or = 19 years Acceptable: <120 mg/dL Borderline high: 120-144 mg/dL High: >145 mg/dL Ages > or = 20 years When triglycerides are >200 mg/dL, Non-HDL cholesterol is a secondary target of therapy with treatment goals that are 30 mg/dL greater than the LDL cholesterol target. Literature References: 1. Expert Panel on Integrated Guidelines for Cardiovascular Health and Risk Reduction in Children and Adolescents. Pediatrics 2011;128:S213 2. NCEP Expert Panel. Circulation 2004;110:227 Current Interpretive Data was last revised on 2018. Testing performed by: [address] [address] Chol/HDL ratio 4 KRISTINE Comment:Testing performed by : [address] [address] Blood 11/05/2024 9:20 AM PRODUCTION GRIP 11/05/2024 12:22 PM PRODUCTION GRIP us Joe Roe MD LAB BLOOD ORDERABLES Final Result [facility] [address] [facility] Department [place] [address] * (ABNORMAL) Comprehensive metabolic panel (11/05/2024 9:20 AM PRODUCTION GRIP) Sodium 139 135 - 145 mmol/L Comment:Testing performed by : [address] [address] Potassium, pl 4.8 3.3 - 4.9 mmol/L KRISTINE MATOS Comment:Testing performed by : [address] [address] Chloride 104 97 - 110 mmol/L KRISTINE Comment:Testing performed by : [address] [address] CO2 26 22 - 32 mmol/L KRISTINE MATOS Comment:Testing performed by : [address] [address] Anion gap 9 2 - 15 mmol/L KRISTINE MATOS Comment:Testing performed by : [address] [address] BUN 24 6 - 25 mg/dL KRISTINE Comment:Testing performed by : [address] [address] Creatinine 1.60(H) 0.80 - 1.30 mg/dL KRISTINE Comment:Testing performed by : [address] [address] Glucose 92 70 - 199 mg/dL KRISTINE Comment: Interpretive Data Fasting glucose >/= 126 mg/dl is diagnostic for diabetes. Fasting is defined as no caloric intake for at least 8 hours. Fasting glucose between 100 mg/dl to 125 mg/dl is diagnostic of prediabetes. In a patient with classic symptoms of hyperglycemia or hyperglycemic crisis, a random glucose >/= 200 mg/dl is diagnostic for diabetes. In the absence of unequivocal hyperglycemia, results should be confirmed by repeat testing. The classification and Diagnosis of Diabetes Diabetes Care 2021; 46: S19-S40. Current interpretive data was last revised 2022. Testing performed by: [address] [address] Calcium 9.8 8.5 - 10.3 mg/dL KRISTINE Comment:Testing performed by : [address] [address] Bilirubin, total 0.3 0.1 - 1.2 mg/dL KRISTINE Comment:Testing performed by : [address] [address] Protein, pl 7.6 6.5 - 8.5 g/dL KRISTINE Comment:Testing performed by : [address] [address] Albumin 4.4 3.5 - 5.0 g/dL KRISTINE Comment:Testing performed by : [address] [address] Alk phos 56 40 - 130 Units/L KRISTINE Comment:Testing performed by : [address] [address] ALT 14 7 - 55 Units/L KRISTINE Comment:Testing performed by : [address] [address] AST 26 10 - 50 Units/L KRISTINE MATOS Comment:Testing performed by : [facility], [address] [place]., [address] Blood 11/05/2024 9:20 AM PRODUCTION GRIP 11/05/2024 12:22 PM PRODUCTION GRIP Joe Roe MD LAB BLOOD ORDERABLES Final Result KRISTINE [address] [facility] Department [place] [address] * Colonoscopy (10/27/2020) Anatomical Region Laterality Modality Other us Historical Provider ENDOSCOPY PROCEDURES Kyra l Result * US Abdominal Aorta (10/26/2019 10:04 AM PRODUCTION GRIP) Anatomical Region Laterality Modality Abdomen N/A Ultrasound 10/26/2019 12:3 2 PM PRODUCTION GRIP Narrative 10/26/2019 12:34 PM PRODUCTION GRIP Patient Name: JEAN CLAUDE MORALES Dr: Kevyn Noble PA-C D.O.B: 1945 Exam Date: 10/26/19 100 Age: 74 Sex: Male MR#: [id number] Loc: RADIOLOGY REPORT Order #[id number] Ultrasound US Abdominal Aorta Signed EXAM DESCRIPTION: US Abdominal Aorta REASON FOR STUDY: Right upper quadrant pain and mid back pain for 1.5 weeks. TECHNIQUE: Grayscale images acquired of the aorta and stored on PACS. Selected color Doppler and spectral images recorded. COMPARISON: None FINDINGS: AORTIC CALIBER MAXIMAL PROXIMAL: 2.4 x 2.7 cm. MID: 2.4 x 2.6 cm. DISTAL: 1.6 x 2.2 cm. ILIAC DIAMETER RIGHT: 1.6 x 1.6 cm. LEFT: Not visualized OTHER: No other significant finding. IMPRESSION: No abdominal aortic aneurysm. THIS IS AN ELECTRONICALLY VERIFIED FINAL REPORT 10/26/2019 12:34 PM - Electronically signed by Moni Fuentes M.D. TB: DWAYNE Report ID: [id number] Reading Location: [place] [address] REPORT ELECTRONICALLY SIGNED IN OTHER VENDOR SYSTEM Resulting Agency Comment O Procedure Note Moni Fuentes MD - 10/26/2019 Patient Name: JEAN CLAUDE MORLAES Celia Dr: Kevyn Noble PA-C, D.O.B: 1945 Exam Date: 10/26/19 1004 Age: 74 Sex: Male MR#: [id number] Loc: RADIOLOGY REPORT Order #[id number] Ultrasound US Abdominal Aorta Signed EXAM DESCRIPTION: US Abdominal Aorta REASON FOR STUDY: Right upper quadrant pain and mid back pain for 1.5weeks. TECHNIQUE: Grayscale images acquired of the aorta and stored on PACS. Selected color Doppler and spectral images recorded. COMPARISON: None FINDINGS: AORTIC CALIBER MAXIMAL PROXIMAL: 2.4 x 2.7 cm. MID: 2.4 x 2.6 cm. DISTAL: 1.6 x 2.2 cm. ILIAC DIAMETER RIGHT: 1.6 x 1.6 cm. LEFT: Not visualized OTHER: No other significant finding. IMPRESSION: No abdominal aortic aneurysm. THIS IS AN ELECTRONICALLY VERIFIED FINAL REPORT 10/26/2019 12:34 PM - Electronically signed by Moni Fuentes M.D. TB: TB Report ID: [id number] Reading Location: [place] [address] REPORT ELECTRONICALLY SIGNED IN OTHER VENDOR SYSTEM Kevyn [facility]ULLER [facility] US PROCEDURES Final Result * Hepatitis C antibody (10/18/2019 10:38 AM PRODUCTION GRIP) Pathologist [facility] Hep C Ab NONREACT NONREACTIVE [facility] Comment: Siemens CentaurXP using MY (chemiluminescent immunoassay) technology. NONREACTIVE: Antibodies to Hepatitis C not detected. This does not exclude early acute Hepatitis C infection, possibility of exposure to Hepatitis C, antibodies below detection limit, or to lack of antibody reactivity to the antigen used in this assay. EQUIVOCAL: Antibodies to Hepatitis C may or may not be present. Sample to be confirmed by real-time PCR method. REACTIVE: Antibodies to Hepatitis C detected.Sample to be confirmed by real-time PCR method. Blood specimen (specimen) 10/18/2019 10:38 AM PRODUCTION GRIP 10/18/2019 12:43 PM PRODUCTION GRIP Narrative Resulting Agency Comment CLI Kevyn FULLER LAB MICROBIOLOGY - GENERAL ORDFiona GRUBER Final Result [facility] [employer] [address] [place] [id number] [place] [address] from Last 3 Months or Most Recently Relevant to Health Maintenance Insurance MEDICARE MEDICARE [facility] [place] [address] MEDICARE [facility] MEDICARE SUPPLEMENT Care Teams Renewal Specialist Relationship Specialty Start Date End Date Vashti Garay NP [address] [place] [address] PCP - General Family Medicine 11/24/24
--- OUTSIDE RECORDS SUMMARY | 2024-12-14 01:18 | XMS_ITS ---
Author Organization 1 OF Eddie ng [facility] Address [address] [facility] [address] [place] [address] Care Team Providers Care Laundry Supervisor Name Role Phone Kevyn Noble PA-C Primary Care Provider UnavailGianfranco Rhoades Unavailable [phone] Allergies No Known Allergies REASON FOR VISIT f/u abscess RT foot Medications Medication SIG (Take, Route, Frequency, Duration) Notes Start Date End Date Status Magnesium Oxide 400 (240 Mg) MG TAKE 1 TABLET (400 MG TOTAL) BY MOUTH 2 TIMES A DAY Oral for 90 Unknown Sotalol HCl 120 MG Oral for 90 Unknown HYDROcodone-Acetaminophen 7.5-325 MG Oral for 26 Unknown Vitamin D-3 Unknown Aspirin 81 Unknown Sertraline HCl Unkno wn Vicodin Unknown Dicyclomine HCl Unkn own Multiple Vitamin Unk nown Augmentin 875-125 MG 1 tablet Orally jozef ry 12 hrs for 14 days 03/26/2024 Unknown Mupirocin 2 % apply to affected ar ea Externally apply with every dressing change at least every other day 04/01/2024 Active Tamsulosin HCl 0.4 MG Oral for 90 Unknown Famotidine 40 MG Oral for 90 U nknown Atorvastatin Calcium 40 MG Oral for 90 Unknown Pantoprazole Sodium 40 MG TAKE 1 TABLET BY MOUTH EVERY DAY Oral for 90 Unknown traZODone HCl 100 MG Oral for 90 Unknown Finasteride 5 MG Oral for 90 U nknown Problems Problem Type SNOMED Code ICD Code Onset Dates Problem Status W/U Status Risk Notes Problem [id number] Skin ulcer of left heel with fat layer exposed (L97.422) Active confirmed Vital Signs Height 72 in 04/01/2024 Weight 184 lbs 04/01/2024 BMI 24.95 kg/m2 04/01/2024 Encounters Encounter Location Date Provider Diagnosis 1 OF Eddie Lemon DPM [facility] [address] [address] 04/01/2024 Gianfranco Lemon 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 Also providing Rx for topical mupirocin ointment today. Advised dressing change to wound of plantar heel at least every other day with mupirocin ointment and bandaid with 1/4 felt aperture pad to offload the wound. He was advised to keep WB activity to a minimum. If wound fails to heal or improve significantly at next visit will consider more aggressive offloading. f/u next Friday Plan Of Treatment Medication Medication Name Sig Start Date Stop Date Notes Mupirocin 2 % apply to affected ar ea Externally apply with every dressing change at least every other day 04/01/2024 Treatment Notes Assessment Notes Staph infection Continue taking the Augmentin until finished. Also providing Rx for topical mupirocin ointment today. Advised dressing change to wound of plantar heel at least every other day with mupirocin ointment and bandaid with 1/4 felt aperture pad to offload the wound. He was advised to keep WB activity to a minimum. If wound fails to heal or improve significantly at next visit will consider more aggressive offloading. f/u next Friday Progress Notes * Domingo MORALESDOB:1945 ( 79 yo M)Acc No.[id number]:04/01/2024 Progress Notes Patient: Domingo NESBITT Provider: Eddie Lemon DPM :1945 A ge:79 Y S ex:Male Date:04/01/2024 Address:[address], [place] [facility], [id number] Pcp:Kevyn Noble PA-C Subjective: * Chief Complaints: * 1 . f/u abscess RT foot. * HPI: Vernon Lutz assisting with visit:: HPI/Rooming: Vernon sandra. Melyssa graciasan diego reason for visit:: 79 year old male RTO for f/u of LT heel abscess. At last visit a wound culture was obtained, the wound was drained, a CT scan was ordered, an abx was ordered, and pt was advised to offload in sx shoe. Today the pt reports he is still taking his abx, but not wearing sx shoe. He reports minimal drainage lately but states it still sore with WB activity and rates pain as 4/10 with WB and 0/10 when NWB. * Medical History: n europathy of feet, arthritis of thumb joints, Degenerative disc disease, sick sinus syndrome (w/ pacemaker). * Surgical History: p acemaker placement . * Medications: U nknown Sertraline HCl , Unknown Vicodin , Unknown Dicyclomine HCl , Unknown Multiple Vitamin , Unknown Vitamin D-3 , Unknown Aspirin 81 , Unknown Magnesium Oxide 400 (240 Mg) MG Tablet TAKE 1 TABLET (400 MG TOTAL) BY MOUTH 2 TIMES A DAY Oral , Unknown Sotalol HCl 120 MG Tablet Oral , Unknown HYDROcodone-Acetaminophen 7.5-325 MG Tablet Oral , Unknown traZODone HCl 100 MG Tablet Oral , Unknown Finasteride 5 MG Tablet Oral , Unknown Tamsulosin HCl 0.4 MG Capsule Oral , Unknown Famotidine 40 MG Tablet Oral , Unknown Atorvastatin Calcium 40 MG Tablet Oral , Unknown Pantoprazole Sodium 40 MG Tablet Delayed Release TAKE 1 TABLET BY MOUTH EVERY DAY Oral , Unknown Augmentin 875-125 MG Tablet 1 tablet Orally every 12 hrs * Allergies: N .K.D.A. Objective: * Vitals: W t:184lbs, Wt-k.46 kg, Ht: 72 in, BMI:24.95Index. * Examination: G eneral Examination: Constitutional / Appearance: N o acute distress , Well nourished, Appropriate personal hygiene. Mental status: C ooperative, Oriented to person, place and time, Mood and affect: normal, Judgement and intellect: normal with appropriate response to questions. Shoes today: s lippers / house shoes . ? W ound Evaluation: : Wound A L ocation: plantar LT heel, Date of initial evaluation: 04/01/2024 Measurement Hx (following debridement):, 04/01/2024: 0.4cm x 0.5cm x 0.1cm depth, Appearance today: , (wound depth: subcutaneous / fatty tissue) minimal serous drainage, no odor, no purulence, no probing or undermining. No erythema noted about wound margins.. Assessment: * Assessment: 1. 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 S kin ulcer of left heel with fat layer exposed - L97.422 3 . S taph infection - B95.8 ? Plan: * Treatment: * Preventive Medicine: Screenings: F ALL RISK SCREENING Fall Risk Assessment: N o falls in the past year * Images: * Electronic signature of Marily Lemon DPM on 12/14/2024 at 01:18 AM CDT Sign off status: Pending * Provider: Eddie Lemon DPM Date: 0 04/01/2024 Generated for Mina fofana/Yakov/eTtrismitting on: 0 12/14/2024 01:18 AM CDT History and Physical Notes * HPI (History of Present Illness) Category Sub-Category Detail Notes Category Not es Primary reason for visit: 79 year old male RTO for f/u of LT heel abscess. At last visit a wound culture was obtained, the wound was drained, a CT scan was ordered, an abx was ordered, and pt was advised to offload in sx shoe. Today the pt reports he is still taking his abx, but not wearing sx shoe. He reports minimal drainage lately but states it still sore with WB activity and rates pain as 4/10 with WB and 0/10 when NWB. MEI assisting with visit: HPI/Rooming: Lucita Examination Category Sub-Category Detail Notes Category Not es General Examination Mental status: Cooperative, Oriented to person, place and time, Mood and affect: normal, Judgement and intellect: normal with appropriate response to questions Shoes today: slippers / house sh oes Constitutional / Appearance: No acute di stress , Well nourished, Appropriate personal hygiene Wound Evaluation: Wound A Location: plan tar LT heel, Date of initial evaluation: 04/01/2024 Measurement Hx (following debridement):, 04/01/2024: 0.4cm x 0.5cm x 0.1cm depth, Appearance today: , (wound depth: subcutaneous / fatty tissue) minimal serous drainage, no odor, no purulence, no probing or undermining. No erythema noted about wound margins.
--- OUTSIDE RECORDS SUMMARY | 2024-12-14 01:18 | XMS_ITS | Encounter Summary ---
Author Organization [facility] Facility Care Team Providers Care Envelope Addresser Name Role Phone Kevyn Noble Primary Care Provider [phone] Vashti Garay NP Primary Care Provider [phone] Encounter Details Date Type Department Care Team (Latest Contact Info) Description 10/16/2018 Orders Only [facility] ProviderSimi MD [address] [place] [address] Social History Tobacco Use Types Packs/Day Years Used Date Smoking Tobacco: Never Assessed Sex and Gender Information Value Date Recorded Sex Assigned at Not on file Legal Sex Male 6:39 AM SONOSCOPE OPERATOR Gender Identity Male 10/22/2021 9:05 AM SONOSCOPE OPERATOR Sexual Orientation Not on file documented as of this encounter Plan of Treatment Not on file documented as of this encounter Procedures Procedure Name Priority Date/Time Associated Diagnosis Comments PROCEDURE - RESULT 10/16/2018 12 :00 AM SONOSCOPE OPERATOR documented in this encounter Results * PROCEDURE - RESULT (10/16/2018 12:00 AM SONOSCOPE OPERATOR) Narrative 10/16/2018 12:00 AM SONOSCOPE OPERATOR Ordered by an unspecified provider. us Historical Provider Final Res ult documented in this encounter Visit Diagnoses Not on filedocumented in this encounter Care Teams Envelope Addresser Relationship Specialty Start Date End Date Kevyn Noble PA PCP - General 10/19/18 09/08/23 Vashti Garay NP [address] [place] [address] [place] [address] PCP - General Family Medicine 11/24/24 documented as of this encounter
--- OUTSIDE RECORDS SUMMARY | 2024-12-14 01:18 | XMS_ITS ---
Author Organization 1 [facility] Address [address] [place] [address] Care Team Providers Care Napping Machine Operator Name Role Phone Kevyn Noble PA-C Primary Care Provider UnavailGianfranco Rhoades Unavailable REASON FOR VISIT CT scan results Encounters Encounter Location Date Provider Diagnosis 1 OF [facility] [address] [place] [address] 03/30/2024 Gianfranco Lemon Plan Of Treatment No Information Progress Notes * Domingo MORALESDOB:1945 ( 79 yo M)Acc No.[id number]:03/30/2024 Patient: Domingo NESBITT :1945 A ge:79 Y S ex:Male Address:[address], [place], [address] * true * Date: Generated for Nati ng/Faalexiag/eTransmitting on: 0 12/14/2024 01:18 AM CDT
--- OUTSIDE RECORDS SUMMARY | 2024-12-14 01:18 | XMS_ITS ---
Author Organization 1 OF Eddie ng [facility] Address [address] [place] [address] Care Team Providers Care Loading Rack Supervisor Name Role Phone Kevyn Noble PA-C Primary Care Provider Gianfranco Murdock Unavailable Allergies No Known Allergies REASON FOR VISIT f/u LT heel wound / infection Medications Medication SIG (Take, Route, Frequency, Duration) Notes Start Date End Date Status Famotidine 40 MG Oral for 90 A ctive Atorvastatin Calcium 40 MG Oral for 90 Active Tamsulosin HCl 0.4 MG Oral for 90 Active Pantoprazole Sodium 40 MG TAKE 1 TABLET BY MOUTH EVERY DAY Oral for 90 Active HYDROcodone-Acetaminophen 7.5-325 MG Oral for 26 Active traZODone HCl 100 MG Oral for 90 Active Magnesium Oxide 400 (240 Mg) MG TAKE 1 TABLET (400 MG TOTAL) BY MOUTH 2 TIMES A DAY Oral for 90 Active Sotalol HCl 120 MG Oral for 90 Active Finasteride 5 MG Oral for 90 A ctive Vicodin Active Dicyclomine HCl Acti ve Aspirin 81 Active Multiple Vitamin Act maira Vitamin D-3 Active Mupirocin 2 % apply to affected ar ea Externally apply with every dressing change at least every other day 04/01/2024 Active Sertraline HCl Activ e Vital Signs Height 72 in 04/09/2024 Weight 184 lbs 04/09/2024 BMI 24.95 kg/m2 04/09/2024 Encounters Encounter Location Date Provider Diagnosis 1 [facility] [address] [place] [address] [place] [address] 04/09/2024 Gianfranco Lemon 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 Advised pt to wear w alissa socks and check for drainage. Monitor for SOI. Also recommended pt wear shoes at all times. Okay to use lotion, avoid pulling at the skin. Call with any concerns. 04/09/2024 Staph infection (ICD-10 - B95.8) Plan Of Treatment Treatment Notes Assessment Notes Skin ulcer of left heel with fat layer exposed Wound debridement performed (see details below). Advised pt to wear w alissa socks and check for drainage. Monitor for SOI. Also recommended pt wear shoes at all times. Okay to use lotion, avoid pulling at the skin. Call with any concerns. Next Appt Details Follow Up: prn, Reason: Progress Notes * Domingo MORALESDOB:1945 ( 79 yo M)Acc No.[id number]:04/09/2024 Progress Notes Patient: Domingo NESBITT Provider: Eddie Lemon DPM :1945 A ge:79 Y S ex:Male Date:04/09/2024 [address] [facility] [place] Pcp:Kevyn Noble PA-C Subjective: * Chief Complaints: * 1 . f/u LT heel wound / infection. * HPI: Vernon Lutz assisting with visit:: HPI/Rooming: Ryan. Melyssa reason for visit:: 79 year old male RTO for f/u of LT heel abscess. Last visit pt was advised to apply Murpirocin oitment, finish oral abx, continue with dressing changes. Pt was also advised to continue with minimal WB and offload with felt padding. Pt reports today doing fine, no issues. * Medical History: n europathy of feet, arthritis of thumb joints, Degenerative disc disease, sick sinus syndrome (w/ pacemaker). * Surgical History: p acemaker placement . * Family History: cancer. * Medications: T aking Mupirocin 2 % Ointment apply to affected area Externally apply with every dressing change at least every other day , Taking Sertraline HCl , Taking Vicodin , Taking Dicyclomine HCl , Taking Multiple Vitamin , Taking Vitamin D-3 , Taking Aspirin 81 , Taking Magnesium Oxide 400 (240 Mg) MG Tablet TAKE 1 TABLET (400 MG TOTAL) BY MOUTH 2 TIMES A DAY Oral , Taking Sotalol HCl 120 MG Tablet Oral , Taking HYDROcodone-Acetaminophen 7.5-325 MG Tablet Oral , Taking traZODone HCl 100 MG Tablet Oral , Taking Finasteride 5 MG Tablet Oral , Taking Tamsulosin HCl 0.4 MG Capsule Oral , Taking Famotidine 40 MG Tablet Oral , Taking Atorvastatin Calcium 40 MG Tablet Oral , Taking Pantoprazole Sodium 40 MG Tablet Delayed Release TAKE 1 TABLET BY MOUTH EVERY DAY Oral , Discontinued Augmentin 875-125 MG Tablet 1 tablet Orally every 12 hrs , Medication List reviewed and reconciled with the patient * Allergies: N .K.D.A. Objective: * Vitals: W t:184lbs, Wt-k.46 kg, Ht: 72 in, BMI:24.95Index. * Examination: G eneral Examination: Constitutional / Appearance: N o acute distress , Well nourished, Appropriate personal hygiene. Mental status: C ooperative, Oriented to person, place and time, Mood and affect: normal, Judgement and intellect: normal with appropriate response to questions. Shoes today: , Slip on shoes. W ound Evaluation: : Wound A L ocation: plantar LT heel, Date of initial evaluation: 04/01/2024 Measurement Hx (following debridement):, 04/01/2024: 0.4cm x 0.5cm x 0.1cm depth, 04/09/2024: healed Appearance today: , (wound depth: subcutaneous / fatty tissue) minimal serous drainage, no odor, no purulence, no probing or undermining. No erythema noted about wound margins.. Assessment: * Assessment: 1. 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 S kin ulcer of left heel with fat layer exposed - L97.422 3 . S taph infection - B95.8 ? Plan: * Treatment: * Follow Up: p carlo * Images: * Electronic signature of Marily Lemon DPM on 12/14/2024 at 01:17 AM CDT Sign off status: Pending * Provider: Eddie Lemon DPM Date: 0 04/09/2024 Generated for Mina fofana/Yakov/Florinda on: 0 12/14/2024 01:17 AM CDT History and Physical Notes * HPI (History of Present Illness) Category Sub-Category Detail Notes Category Not es Primary reason for visit: 79 year old male RTO for f/u of LT heel abscess. Last visit pt was advised to apply Murpirocin oitment, finish oral abx, continue with dressing changes. Pt was also advised to continue with minimal WB and offload with felt padding. Pt reports today doing fine, no issues. MA assisting with visit: HPI/Rooming: , Ever Examination Category Sub-Category Detail Notes Category Not es General Examination Mental status: Cooperative, Oriented to person, place and time, Mood and affect: normal, Judgement and intellect: normal with appropriate response to questions Shoes today: , Slip on shoes Constitutional / Appearance: No acute di stress , Well nourished, Appropriate personal hygiene Wound Evaluation: Wound A Location: plan tar LT heel, Date of initial evaluation: 04/01/2024Measurement Hx (following debridement):, 04/01/2024: 0.4cm x 0.5cm x 0.1cm depth,04/09/2024: healedAppearance today: , (wound depth: subcutaneous / fatty tissue) minimal serous drainage, no odor, no purulence, no probing or undermining. No erythema noted about wound margins.
--- OUTSIDE RECORDS SUMMARY | 2024-12-14 01:18 | XMS_ITS | Patient Health Record ---
Author Organization [address] [facility] Address [address] [facility] [address] [place] [address] Care Team Providers Care Brick Washer Name Role Phone Kevyn Noble PA-C Primary Care Provider Gianfranco Murdock Unavailable Allergies No Known Allergies Results Component Value Reference Range Notes Wound culture (EnzySurge R) Reviewed date:04/22/2024 10:25:12 PM Interpretation:Staphylococcus Aureus 100% Performing Lab: Notes/Report: Staphylococcus Aureus 100% CT Scan : Foot, left (w/ & w /o contrast) Reviewed date:04/22/2024 10:25:23 PM Interpretation:Along the plantar aspect of the ankle at the level of a plantar calcaneal spur more centrally is a skin defect and subcutaneous air is seen in the underlying soft tissues. Small foci of increased density and air is seen deep to the skin defect extending into the deeper subcutaneous fat. Findings may reflect some underlying debris or proteinaceous material. No walled-off fluid collection to suggest abscess formation. Overall, the subcutaneous focus measures 10 x 15 x 10 mm. This stranding focus has higher density before contrast with surrounding enhancement. This may reflect some proteinaceous debris. This does not have the typical appearance of a foreign body. Correlate with history. No drainable abscess. There is mild thickening of the underlying plantar fascia. Insertion inflammatory change/plantar fasciitis is possible. No evidence of osteomylitis. Performing Lab: Notes/Report: Along the plantar aspect of the ankle at the level of a plantar calcaneal spur more centrally is a skin defect and subcutaneous air is seen in the underlying soft tissues. Small foci of increased density and air is seen deep to the skin defect extending into the deeper subcutaneous fat. Findings may reflect some underlying debris or proteinaceous material. No walled-off fluid collection to suggest abscess formation. Overall, the subcutaneous focus measures 10 x 15 x 10 mm. This stranding focus has higher density before contrast with surrounding enhancement. This may reflect some proteinaceous debris. This does not have the typical appearance of a foreign body. Correlate with history. No drainable abscess. There is mild thickening of the underlying plantar fascia. Insertion inflammatory change/plantar fasciitis is possible. No evidence of osteomylitis. Reason For Referral No Information Medications Medication SIG (Take, Route, Frequency, Duration) Notes Start Date End Date Status HYDROcodone-Acetaminophen 7.5-325 MG Oral for 26 Active traZODone HCl 100 MG Oral for 90 Active Magnesium Oxide 400 (240 Mg) MG TAKE 1 TABLET (400 MG TOTAL) BY MOUTH 2 TIMES A DAY Oral for 90 Active Sotalol HCl 120 MG Oral for 90 Active Vicodin Active Famotidine 40 MG Oral for 90 A ctive Dicyclomine HCl Acti ve Atorvastatin Calcium 40 MG Oral for 90 Active Mupirocin 2 % apply to affected ar ea Externally apply with every dressing change at least every other day 04/01/2024 Active Finasteride 5 MG Oral for 90 A ctive Sertraline HCl Activ e Tamsulosin HCl 0.4 MG Oral for 90 Active Aspirin 81 Active Multiple Vitamin Act maira Pantoprazole Sodium 40 MG TAKE 1 TABLET BY MOUTH EVERY DAY Oral for 90 Active Vitamin D-3 Active Social History Tobacco Use: Social History Observation Description Date Details (start date - stop date) Former Smoker NA - NA Tobacco Use/Smoking Question Answer Notes Are you a former smoker Problems Problem Type SNOMED Code ICD Code Onset Dates Problem Status W/U Status Risk Notes Problem 247892193 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 Problem 794845982 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 confirmed Problem 44104825848752478 Skin ulcer of left heel with fat layer exposed (L97.422) Active confirmed Vital Signs Height 72 in 04/09/2024 Weight 184 lbs 04/09/2024 BMI 24.95 kg/m2 04/09/2024 Encounters Encounter Location Date Provider Diagnosis 1 OF [facility] [address] [facility] [place] [address] [place] [address] 03/26/2024 Gianfranco Lemon 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 ; Pain in joint, foot, left M25.572 and Abscess of left foot L02.612 1 OF Eddie William [facility] [address] [place] [address] [place] [id number] 04/01/2024 Ramsesvandana Ion 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 ; Skin ulcer of left heel with fat layer exposed L97.422 and Staph infection B95.8 1 OF Eddie [place] [address] [place] [address] [place] [address] 04/09/2024 Gianfranco Lemon 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 ; Skin ulcer of left heel with fat layer exposed L97.422 and Staph infection B95.8 1 OF Eddie William [facility] [address] [place] [address] [place] [phone] 03/30/2024 Gianfranco Lemon 1 OF [place] [address] [phone] 03/30/2024 Gianfranco Lemon Assessments Encounter Date Diagnosis (ICD Code) Assessment Notes Treatment Notes Treatment Clinical Notes Section Notes 03/26/2024 Idiopathic progressive neuropathy (ICD-10 - G60.3) 03/26/2024 Pain in joint, foot, left (ICD-10 - M25.572) 04/01/2024 Idiopathic progressive neuropathy (ICD-10 - G60.3) 04/01/2024 Skin ulcer of left heel with fat layer exposed (ICD-10 - L97.422) 04/09/2024 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 Advised pt to wear w alissa socks and check for drainage. Monitor for SOI. Also recommended pt wear shoes at all times. Okay to use lotion, avoid pulling at the skin. Call with any concerns. 04/01/2024 Staph infection (ICD-10 - B95.8) Continue [...] will consider more aggressive offloading. f/u next Friday03/26/2024 Abscess of left foot (ICD-10 - L02.612) Abscess drained and wound culture was obtained. Ordered STAT CT scan 04/09/2024 Staph infection (ICD-10 - B95.8) Plan Of Treatment No Information Insurance Providers Payer Name Payer Address Payer Phone Subscriber Number Group Number Insured Name Patient Relationship to Insured Coverage Start Date Coverage End Date Medicare [address] [facility] [place], [place] [id number] Domingo Morales Self - patient is the insured [facility] [address] [place] [address] [id number] 1 Domingo Morales Self - patient is the insured Medical (General) History Medical History History ICD Code neuropathy of feet, arthriti s of thumb joints, Degenerative disc disease, sick sinus syndrome (w/ pacemaker) Surgical History Surgery Date(Month/Year) pacemaker placement
--- OUTSIDE RECORDS SUMMARY | 2024-12-14 01:18 | XMS_ITS | Encounter Summary ---
Author Organization [facility] Care Team Providers Care Tower Crane Operator Name Role Phone Kevyn Noble Primary Care Provider [phone] Vashti Garay NP Primary Care Provider [phone] Encounter Details Date Type Department Care Team (Latest Contact Info) Description 07/14/2013 Orders Only [facility] ProviderSimi MD [address] [place] [id number] Social History Tobacco Use Types Packs/Day Years Used Date Smoking Tobacco: Never Assessed Sex and Gender Information Value Date Recorded Sex Assigned at Not on file Legal Sex Male 6:39 AM PASTRYCOOK Gender Identity Male 10/22/2021 9:05 AM PASTRYCOOK Sexual Orientation Not on file documented as of this encounter Plan of Treatment Not on file documented as of this encounter Procedures Procedure Name Priority Date/Time Associated Diagnosis Comments CARDIOLOGY REPORT 04/01/2018 12: 00 AM CDT documented in this encounter Results * CARDIOLOGY REPORT (04/01/2018 12:00 AM CDT) Anatomical Region Laterality Modality Other Narrative 04/01/2018 12:00 AM CDT Ordered by an unspecified provider. Historical Provider [facility] Final Result documented in this encounter Visit Diagnoses Not on filedocumented in this encounter Care Teams Tower Crane Operator Relationship Specialty Start Date End Date Kevyn Noble PA PCP - General 10/19/18 09/08/23 Vashti Garay NP [address] [facility] [address] [place] [address] [place] [id number] PCP - General Family Medicine 11/24/24 documented as of this encounter
--- OUTSIDE RECORDS SUMMARY | 2024-12-14 01:19 | XMS_ITS | Referral Summary ---
[facility] Organization [facility] Address [address] [place] [phone] Care Team Providers Care House Wirer Helper Name Role Phone Vashti Garay NP Primary Care Provider Encounters Date Type Department Care Team Description 11/25/2024 Results Follow-Up [facility] Medical [facility] Family Medicine at [address] [place] [address] Vashti Garay NP 11/25/2024 10:05 AM CDT Lab [facility] Medical Office Bldg [address] OP Lab [address] [place] [phone] Other polyneuropathy 11/24/2024 10:00 AM CDT Office Visit [facility] at [address] [place] [address] Vashti Garay NP Healthcare maintenance (Primary Dx); Need for hepatitis B screening test; Other polyneuropathy; Sick sinus syndrome (CMS/HCC) (HCC); Gastroesophageal reflux disease, unspecified whether esophagitis present; Tinnitus of both ears; Stage 3b chronic kidney disease (HCC) 11/05/2024 9:45 AM TEST EXAMINER Lab [facility] OP Lab [address] [place] [id number] Impaired fasting glucose; Primary hypertension; Mixed hyperlipidemia; Stage 3a chronic kidney disease (HCC) 11/05/2024 9:30 AM TEST EXAMINER [facility] [address] [phone] Joe Roe MD Primary hypertension (Primary Dx); Mixed hyperlipidemia; Sick sinus syndrome (HCC); Pacemaker; Impaired fasting glucose; Stage 3a chronic kidney disease (HCC); Numbness of feet; Bilateral foot pain; Poor balance; Other polyneuropathy; Other chronic pain; Benign prostatic hyperplasia with weak urinary stream; Irritable bowel syndrome, unspecified type; Gastroesophageal reflux disease without esophagitis; Insomnia, unspecified type 09/15/2024 Letter (Out) [facility] [address] [phone] from Last 3 Months Allergies No known active allergies Medications MULTIVITAMIN [...] 01/21/2020 Assessment & Plan (07/29/2023 3:39 PM TEST EXAMINER): This is a stable chronic condition. Monitor [...] routine Assessment & Plan (09/30/2022 4:18 PM TEST EXAMINER): Images from the original note were not [...] consider Assessment & Plan (07/29/2023 3:39 PM TEST EXAMINER): This is diet controlled Assessment & Plan (03/19/2023 9:34 AM CDT): Currently controlled with diet will continue to follow Assessment & Plan (02/05/2023 2:05 PM CDT): Diet controlled Assessment & Plan (11/14/2022 9:20 AM CDT): controlled Assessment & Plan (09/30/2022 4:18 PM TEST EXAMINER): Diet controlled Assessment & Plan (05/15/2022 11:44 AM CDT): Controlled with diet Assessment & Plan (04/09/2022 4:32 PM CDT): Diet and fiber Assessment & Plan (11/07/2021 1:51 PM TEST EXAMINER): Diet controlled Assessment & Plan (04/18/2020 9:57 AM CDT): This is currently controlled with diet will continue to follow BMI 26.0-26.9,adult 06/11/2018 Assessment & Plan (10/19/2020 9:59 AM TEST EXAMINER): Healthy diet Benign prostatic hyperplasia 03/30/2018 Assessment & Plan (04/09/2022 4:32 PM CDT): Well controlled Assessment & Plan (04/24/2021 10:03 AM CDT): Stable and continue meds Assessment & Plan (10/19/2020 9:58 AM TEST EXAMINER): Controlled with meds Assessment & Plan (04/18/2020 [...] 03/30/2018 Assessment & Plan (07/29/2023 3:39 PM TEST EXAMINER): Patient is to continue present medications, work [...] routine. Assessment & Plan (09/30/2022 4:18 PM TEST EXAMINER): Patient is to continue present medications, work [...] routine. Assessment & Plan (10/19/2020 9:58 AM TEST EXAMINER): Patient is to continue present medications, work [...] cardiology Assessment & Plan (11/07/2021 1:51 PM TEST EXAMINER): Seeing cardiology Assessment & Plan (04/24/2021 10:04 AM CDT): Cardiology following Assessment & Plan (10/19/2020 9:58 AM TEST EXAMINER): Seeing cardiology and doing well Assessment & Plan (04/18/2020 9:58 AM CDT): Patient is asymptomatic and followed by cardiology and on a baby aspirin Assessment & Plan (12/27/2019 10:32 AM CDT): Has pacemaker, seeing Cardiology 20 january Assessment & Plan (12/13/2019 10:20 AM CDT): Patient has a pacemaker and he is asymptomatic in clinic today I have a message out to his marketing underwriter and I am faxing over the EKG [...] 11/14/2017 Assessment & Plan (07/29/2023 3:40 PM TEST EXAMINER): Patient is very legitimate and has had a really hard time with this and I see no reason to even try to taper as is the only thing that gives him relief. My collaborating partner is moving away from [facility] pain management therefore I also have to do the same I offered patient to go see a pain management specialists he was not happy about this he asked if there was someone else I told him about my previous partner at [facility] Dr. Joe Roe I let him know [...] ordered Assessment & Plan (09/30/2022 4:19 PM TEST EXAMINER): This is chronic, exhausted everything Patient and [...] neurology Assessment & Plan (11/07/2021 1:51 PM TEST EXAMINER): Chronic ongoing Assessment & Plan (12/28/2020 3:31 [...] 10/13/2015 Assessment & Plan (11/07/2021 1:51 PM TEST EXAMINER): Patient is to continue present medications, work [...] 11/24/2024 Assessment & Plan (10/19/2020 10:05 AM TEST EXAMINER): Currently not an issue, if this becomes [...] Overview (02/15/2019): has been seeing pain mgt dee dee Assessment & Plan (04/09/2022 4:33 PM CDT): Sending to podiatry for neuropathy Assessment & Plan (10/19/2020 9:58 AM TEST EXAMINER): Taking as needed medical marijuna, not daily, knows he can not take [...] depression Assessment & Plan (10/19/2020 9:58 AM TEST EXAMINER): No depression Assessment & Plan (04/18/2020 9:57 [...] DDD Assessment & Plan (09/30/2022 4:19 PM TEST EXAMINER): Patient and I had a discussion about [...] meds Assessment & Plan (11/07/2021 1:50 PM TEST EXAMINER): This is chronic, he failed PY, did [...] 11/24/2024 Dizziness 04/30/2013 11/24/2024 Fatigue 04/30/2013 11/24/2024 Immunizations Immunization Administration Dates Next Due COVID-19 MRNA (MODERNA) .5 M L (50 MCG) VACCINE (12 YEARS AND UP) 05/22/2023 Influenza, Quad, Adjuvantate d, Intramuscular 05/22/2023 Influenza, Quadrivalent, Hig h Dose, Preservative Free, Intrr 04/30/2022,05/08/2021,04/29/2020 Influenza, Quadrivalent, Spl it, Intramuscular 06/11/2018 Influenza, Trivalent, High D ose, Split, Preservative Free, Intramuscular 05/24/2024,06/10/2019,06/11/2018,05/19,05/27/2016,05/27/2015 Influenza, Trivalent, IM (MDV) 06/21/2014,2012 Influenza, Unspecified 05/22/2023,2021,05/08/2021,04/29,06/10/2019,06/11/2018 RallyPoint SARS-CoV-2 Monovalent Vaccination (12+ Yrs) PURPLE 06/01/2021,11/03/2020,10/09/2020 Pfizer Sars-Cov-2 Bivalent V accination (12+ YRS) 05/10/2022 Pneumococcal Conjugate PCV 13 07/25/2015 Pneumococcal Polysaccharide PPV23 10/18/2019,07/2017 RSV Vaccine, Pref, Recombina nt, Subunit, Adjuvanted, PF, IM (Arexvy) 10/28/2023 Tdap 09/26/2023 ZOSTER Recombinant 04/30/2024,09/27/2023 Social History Tobacco Use Types Packs/Day Years [...] on file Legal Sex Male 6:39 AM TEST EXAMINER Gender Identity Male 10/22/2021 9:05 AM TEST EXAMINER Sexual Orientation Not on file Last Filed Vital Signs Vital Sign Reading [...] 11/24/2024 10:01 AM CDT Plan of Treatment Not on file Procedures Procedure Name Priority Date/Time Associated Diagnosis Comments OPIATES CONFIRMATION MS, URINE Routine 11/25/2024 10:07 AM CDT Other polyneuropathy DRUGS OF ABUSE SCREEN, URINE WITH REFLEX CONFIRMATION Routine 11/25/2024 10:07 AM CDT Other polyneuropathy EGFR Routine 11/05/2024 9:20 AM TEST EXAMINER Primary hypertension Mixed hyperlipidemia Impaired fasting glucose Stage 3a chronic kidney disease (HCC) DIFFERENTIAL AUTO Routine 11/05/2024 9:2 0 AM TEST EXAMINER Primary hypertension LIPID PANEL Routine 11/05/2024 9:20 AM TEST EXAMINER Primary hypertension Mixed hyperlipidemia COMPREHENSIVE METABOLIC PANEL Routine 11/05/2024 9:20 AM TEST EXAMINER Primary hypertension Mixed hyperlipidemia Impaired fasting glucose Stage 3a chronic kidney disease (HCC) CBC WITH AUTO DIFFERENTIAL Routine 11/05/2024 9:20 AM TEST EXAMINER Primary hypertension ALBUMIN CREATININE RATIO, URINE Routine 11/05/2024 9:20 AM TEST EXAMINER Primary hypertension HEMOGLOBIN A1C Routine 11/05/2024 9:20 AM TEST EXAMINER Impaired fasting glucose COLONOSCOPY Routine 10/27/2020 US ABDOMINAL AORTA 10/26/2019 10 :04 AM TEST EXAMINER HEPATITIS C ANTIBODY Routine 10/18/2019 10:38 AM TEST EXAMINER Need for hepatitis C screening test from Last 3 Months or Most Recently Relevant to Health Maintenance Results * (ABNORMAL) Drugs of Abuse Screen, Urine with Reflex Confirmation (11/25/2024 10:07 AM CDT) Amphetamine, ur Not Detected CutOff 500ng/mL Comment: [...] ur Not Detected CutOff 100ng/mL [facility] Comment: Interpretive Data - Benzodiazepines: Samples containing greater than 100 ng/mL nordiazepam or other cross-reacting compounds are reported as positive. False positive and false negative results are possible. Confirmatory testing required for definitive results. Current Interpretive Data was last reviewed 2023. Cannabinoids, ur Not Detected CutOff 50 ng/mL [facility] Comment: Interpretive Data - Cannabinoids: Samples containing greater than 50 ng/mL delta-9 THC -COOH or other cross- reacting compounds are reported as positive. False positive and false negative results are possible. Confirmatory testing required for definitive results. Current Interpretive Data was last reviewed 2023. Cocaine, ur Not Detected CutOff 150ng/mL [facility] Comment: Interpretive Data - Cocaine: Samples containing greater than 150 ng/mL benzoylecgonine or other cross- reacting compounds are reported as positive. False positive and false negative results are possible. Confirmatory testing required for definitive results. Current Interpretive Data was last reviewed 2023. Fentanyl, Ur Not Detected CutOff 5 ng/mL [facility] Comment: Interpretive Data - Fentanyl: Samples containing greater than 5 ng/mL norfentanyl, fentanyl, or other cross-reacting fentanyl compounds are reported as positive. False positive and false negative results are possible. Confirmatory testing required for definitive results. Current Interpretive Data was last reviewed 2023. Methadone, ur Not Detected CutOff 300ng/mL [facility] Comment: Interpretive Data - Methadone: Samples containing greater than 300 ng/mL d,l-methadone or other cross-reacting compounds are reported as positive. False positive and false negative results are possible. Confirmatory testing required for definitive results. Current Interpretive Data was last reviewed 2023. Opiates, ur Screen Positive, presumptive (A) CutOff 300ng/mL [facility] Comment: Interpretive Data - Opiates: Samples containing greater than 300 ng/mL morphine or other cross-reacting compounds are reported as positive. False positive and false negative results are possible. Confirmatory testing required for definitive results. Current Interpretive Data was last reviewed 2023. Oxycodone, ur Not Detected CutOff 100ng/mL [facility] Comment: Interpretive Data - Oxycodone: Samples containing greater than 100 ng/mL oxycodone or other cross-reacting compounds are reported as positive. False positive and false negative results are possible. Confirmatory testing required for definitive results. Current Interpretive Data was last reviewed 2023. Phencyclidine, ur Not Detected CutOff 25 ng/mL [facility] Comment: Interpretive Data - Phencyclidine: Samples containing [...] AM CDT 11/25/2024 12:25 PM CDT Narrative [facility] 11/25/2024 1:12 PM CDT Drug of Abuse screening is performed by immunoassay for medical purposes only. This is not to be used for Pain Management purposes. If Detected, confirmation testing will be performed for Amphetamines, Cocaine, Fentanyl, Methadone, Opiates, Oxycodone or Phencyclidine. Vashti Garay NP LAB URINE ORDERABLES Final Re sult [facility] [address] [facility] Department [place] [address] * (ABNORMAL) Opiates Confirmation, Urine (11/25/2024 10:07 AM CDT) Codeine Conf, Ur Does Not Confirm CutOff 50 ng/mL Comment:Testing performed by : [facility], [address], [place]., [address] 6- Acetylmorphine Conf, Ur Does Not Confirm CutOff 10 ng/mL KRISTINE CARLO Comment:Testing performed by : [facility], [address] [place]., [address] Hydrocodone Conf, Ur Confirmed Positive(A) CutOff 50 ng/mL K[facility]STINE MATOS Comment:Testing performed by : [facility], [address] [place]., [address] Morphine Conf, Ur Does Not Confirm CutOff 50 ng/mL KRISTINE MATOS Comment:Testing performed by : [facility], [address] [place]., [address] Hydromorphone Conf, Ur Does Not Confirm CutOff [...] needed. Performance characteristics were determined by the [facility] in a manner consistent with CLIA requirement and has not been cleared or approved by the U.S. Food and Drug Administration. Current interpretive data was last revised 2020. Testing performed by: [facility], [address] [place]., [address] Urine 11/25/2024 10:0 7 AM CDT 11/25/2024 3:19 PM CDT us Vashti Garay NP LAB URINE ORDERABLES Final Re sult [facility] MATOS [address] [facility] Department of Laboratories [place], [place] [id number] * (ABNORMAL) eGFR (11/05/2024 9:20 AM TEST EXAMINER) eGFR 44(L) >=60 mL/min/1. 73 m2 Comment: [...] was last reviewed 2021. Testing performed by: [address] [address] Blood 11/05/2024 9:20 AM TEST EXAMINER 11/05/2024 12:22 PM TEST EXAMINER us Joe Roe MD LAB BLOOD ORDERABLES Final Result [facility] [address] [facility] Department [place] [address] * Differential, auto (11/05/2024 9:20 AM TEST EXAMINER) Neutrophil abs 3.3 1.5 - 6.5 K/cumm Comment:Testing performed by : [address] [address] Imm gran abs 0.0 0.0 - 0.1 K/cumm KRISTINE Comment:Testing performed by : [address] [address] Lymphocyte abs 1.6 0.8 - 3.3 K/cumm KRISTINE Comment:Testing performed by : [address] [address] Monocyte abs 0.6 0.2 - 0.8 K/cumm KRISTINE Comment:Testing performed by : [address] [address] Eosinophil abs 0.2 0.0 - 0.5 K/cumm KRISTINE Comment:Testing performed by : [address] [address] Basophil abs 0.1 0.0 - 0.1 K/cumm KRISTINE Comment:Testing performed by : [address] [address] Neutrophil pct 56.7 % [facility] Comment: Interpretive Data Percent cell count reference ranges are not reported, since discordance with absolute values may lead to misinterpretation of CBC data. Current Interpretive Data was last revised on 2017. Testing performed by: [address] [address] Imm gran pct 0.2 % [facility]STINE Comment: Interpretive Data Percent cell count reference ranges are not reported, since discordance with absolute values may lead to misinterpretation of CBC data. Current Interpretive Data was last revised on 2017. Testing performed by: [address] [address] Lymphocyte pct 28.3 % [facility] Comment: Interpretive Data Percent cell count reference ranges are not reported, since discordance with absolute values may lead to misinterpretation of CBC data. Current Interpretive Data was last revised on 2017. Testing performed by: [address] [address] Monocyte pct 10.5 % [facility] Comment: Interpretive Data Percent cell count reference ranges are not reported, since discordance with absolute values may lead to misinterpretation of CBC data. Current Interpretive Data was last revised on 2017. Testing performed by: [address] [address] Eosinophil pct 3.3 % [facility] Comment: Interpretive Data Percent cell count reference ranges are not reported, since discordance with absolute values may lead to misinterpretation of CBC data. Current Interpretive Data was last revised on 2017. Testing performed by: [address] [address] Basophil pct 1.0 % [facility] Comment: Interpretive Data Percent cell count reference ranges are not reported, since discordance with absolute values may lead to misinterpretation of CBC data. Current Interpretive Data was last revised on 2017. Testing performed by: [address] [address] Blood 11/05/2024 9:20 AM TEST EXAMINER 11/05/2024 12:24 PM TEST EXAMINER Joe Roe MD LAB BLOOD ORDERABLES Final Result [facility] [address] [facility] Department [place] [address] * (ABNORMAL) CBC with auto differential (11/05/2024 9:20 AM TEST EXAMINER) [facility] WBC 5.8 3.8 - 9.9 K/cumm Comment:Testing performed by : [address] [address] Hgb 14.7 13.0 - 17.5 g/dL KRISTINE MATOS Comment:Testing performed by : [address] [address] Hct 46.2 38.9 - 50.3 % KRISTINE MATOS Comment:Testing performed by : [address] [address] Plt 257 150 - 400 K/cumm KRISTINE Comment:Testing performed by : [address] [address] MPV 9.8 9.1 - 12.3 fL KRISTINE MATOS Comment:Testing performed by : [address] [address] RBC 4.65 4.30 - 5.80 M/cumm KRISTINE MATOS Comment:Testing performed by : [address] [address] MCV 99.4(H) 81.3 - 96.4 fL KRISTINE MATOS Comment:Testing performed by : [address] [address] MCH 31.6 27.1 - 33.3 pg KRISTINE MATOS Comment:Testing performed by : [address] [address] MCHC 31.8(L) 32.3 - 35.7 g/dL KRISTINE MATOS Comment:Testing performed by : [address] [address] RDW CV 13.1 11.1 - 14.9 % KRISTINE MATOS Comment:Testing performed by : [address] [address] RDW SD 47.8 35.7 - 48.1 fL KRISTINE MATOS Comment:Testing performed by : [address] [address] NRBC abs 0.00 0.00 - 0.01 K/cumm KRISTINE MATOS Comment:Testing performed by : [address] [address] Blood 11/05/2024 9:20 AM TEST EXAMINER 11/05/2024 12:24 PM TEST EXAMINER Joe Roe MD LAB BLOOD ORDERABLES Final Result Performing Organization Address City/[facility]/ZIP Co de Phone Number JULIOFATIMAH [address] [employer] [place] [address] * Albumin Creatinine Ratio, Urine (11/05/2024 9:20 AM TEST EXAMINER) Albumin Ur <12.0 mg/L Comment: Interpretive Data No reference range established. Current interpretive data was last revised 2019. Testing performed by: [address] [address] Creatinine Ur 155.0 mg/dL [facility]INE Comment: Interpretive Data No reference range established. Current interpretive data was last revised 2019. Testing performed by: [address] [address] Albumin Creatinine Ratio, Ur <8 1 - 29 mg/g K[facility]STINE Comment:Testing performed by : [address] [address] Urine 11/05/2024 9:20 AM TEST EXAMINER 11/05/2024 12:23 PM TEST EXAMINER Joe Roe MD LAB URINE ORDERABLES Final Result Performing Organization Address City/[facility]/ZIP Co de Phone Number KRISTINE [address] [place] [address] * Hemoglobin A1c (11/05/2024 9:20 AM TEST EXAMINER) Hgb A1C 5.6 4.0 - 5.6 % Comment:Testing performed by : [address] [address] Estimated Average Glucose 114 mg/dL KRISTINE MATOS Comment: The ADA recommends reporting an estimated Average Glucose (eAG) with all Hemoglobin A1c results using the equation derived from a study of 507 normal and diabetic adults. Minority populations were underrepresented and children were not included. (Diabetes Care 31:6798-8058, 2008). The eAG is not equivalent to a fasting glucose. Testing performed by: [address] [address] Blood 11/05/2024 9:20 AM TEST EXAMINER 11/05/2024 12:24 PM TEST EXAMINER Joe Roe MD LAB BLOOD ORDERABLES Final Result [facility] [address] [facility] Department [place] [address] * (ABNORMAL) Lipid panel (11/05/2024 9:20 AM TEST EXAMINER) Pathologist [facility] Cholesterol 191 30 - 199 mg/dL Comment: [...] last revised on 2018. Testing performed by: [address] [address] Triglycerides 200(H) <=149 mg/dL KRISTINE MATOS Comment: [...] last revised on 2018. Testing performed by: [address] [address] HDL 50 >=40 mg/dL KRISTINE Comment: Interpretive Data Ages < [...] last revised on 2018. Testing performed by: [address] [address] LDL, calculated 106 <=129 mg/dL KRISTINE Comment: Interpretive Data Ages < or = 19 years Acceptable: <110 mg/dL Borderline high: 110-129 mg/dL High: >or= 130 mg/dL Ages > or = 20 years Optimal: <100 mg/dL Near optimal: 100-129 mg/dL Borderline high: 130-159 mg/dL High: >160 mg/dL Calculated using the Domingo LDL-C estimating equation. This equation was implemented on 2024. Prior to this date LDL-C was estimated using the Friedewald equation. Literature References: 1. Expert Panel on Integrated Guidelines for Cardiovascular Health and Risk Reduction in Children and Adolescents. Pediatrics 2011;128:S213 2. NCEP Expert Panel. Circulation 2004;110:227 3. Domingo Junior et al. KAILA Cardiol. 2020 December 30;5(5):540-548. doi: 10.1001/jamacardio.2020.0013 Current Interpretive Data was last revised on 2024. Testing performed by: [address] [address] Non-HDL Cholesterol 141 mg/dL KRISTINE MATOS Comment: Interpretive Data Ages [...] last revised on 2018. Testing performed by: [address] [address] Chol/HDL ratio 4 KRISTINE MATOS Comment:Testing performed by : [address] [address] Blood 11/05/2024 9:20 AM TEST EXAMINER 11/05/2024 12:22 PM TEST EXAMINER Joe Roe MD LAB BLOOD ORDERABLES Final Result [facility] [address] [facility] Department [place] [address] * (ABNORMAL) Comprehensive metabolic panel (11/05/2024 9:20 AM TEST EXAMINER) [facility] Sodium 139 135 - 145 mmol/L Comment:Testing performed by : [address] [address] Potassium, pl 4.8 3.3 - 4.9 mmol/L KRISTINE MATOS Comment:Testing performed by : [address] [address] Chloride 104 97 - 110 mmol/L KRISTINE MATOS Comment:Testing performed by : [address] [address] CO2 26 22 - 32 mmol/L KRISTINE MATOS Comment:Testing performed by : [address] [place] [address] Anion gap 9 2 - 15 mmol/L KRISTINE Comment:Testing performed by : [address] [address] BUN 24 6 - 25 mg/dL KRISTINE Comment:Testing performed by : [address], [place]., [address] Creatinine 1.60(H) 0.80 - 1.30 mg/dL KRISTINE Comment:Testing performed by : [address] [address] Glucose 92 70 - 199 mg/dL KRISTINE [...] classification and Diagnosis of Diabetes Diabetes Care 202; 46: S19-S40. Current interpretive data was last revised 2022. Testing performed by: [address] [address] Calcium 9.8 8.5 - 10.3 mg/dL KRISTINE Comment:Testing performed by : [address] [address] Bilirubin, total 0.3 0.1 - 1.2 mg/dL KRISTINE Comment:Testing performed by : [address] [address] Protein, pl 7.6 6.5 - 8.5 g/dL KRISTINE Comment:Testing performed by : [address] [address] Albumin 4.4 3.5 - 5.0 g/dL KRISTINE Comment:Testing performed by : [address] [address] Alk phos 56 40 - 130 Units/L KRISTINE Comment:Testing performed by : [address] [address] ALT 14 7 - 55 Units/L KRISTINE MATOS Comment:Testing performed by : [facility], [address] [place] [address], [address] AST 26 10 - 50 Units/L KRISTINE MATOS Comment:Testing performed by : [facility], [address] [place] [address]., [address] Blood 11/05/2024 9:20 AM TEST EXAMINER 11/05/2024 12:22 PM TEST EXAMINER Joe Roe MD LAB BLOOD ORDERABLES Final Result [facility]STINE [address] [facility] Department [place] [address] * Colonoscopy (10/27/2020) Anatomical Region Laterality Modality Other Historical Provider ENDOSCOPY PROCEDURES Kyra l Result * US Abdominal Aorta (10/26/2019 10:04 AM TEST EXAMINER) Anatomical Region Laterality Modality Abdomen N/A Ultrasound 10/26/2019 12:3 2 PM TEST EXAMINER Narrative 10/26/2019 12:34 PM TEST EXAMINER Patient Name: JEAN CLAUDE MORALES Dr: Kevny Noble PA-C DBradyOBradyB: 1945 Exam Date: 10/26/19 1004 Age: 74 Sex: Male MR#: [id number] Loc: RADIOLOGY REPORT Order #[id number] Ultrasound US Abdominal Aorta Signed EXAM DESCRIPTION: [...] Moni Fuentes M.D. TB: DWAYNE Report ID: [id number] Reading Location: [id number] REPORT ELECTRONICALLY SIGNED IN OTHER VENDOR SYSTEM Resulting Agency Comment O Procedure Note Moni Fuentes MD - 10/26/2019 Patient Name: JEAN CLAUDE MORALES Dr: Kevyn Noble PA-C DBradyOBradyB: 1945 Exam Date: 10/26/19 1004 Age: 74 Sex: Male MR#: [id number] Loc: RADIOLOGY REPORT Order #[id number] Ultrasound US Abdominal Aorta Signed EXAM DESCRIPTION: [...] Moni Fuentes M.D. TB: TB Report ID: [id number] Reading Location: [id number] REPORT ELECTRONICALLY SIGNED IN OTHER VENDOR SYSTEM Kevyn FULLER G US PROCEDURES Final Result * Hepatitis C antibody (10/18/2019 10:38 AM TEST EXAMINER) Pathologist [facility] Hep C Ab NONREACT NONREACTIVE [facility] Comment: Siemens CentaurXP using MY (chemiluminescent immunoassay) [...] method. Blood specimen (specimen) 10/18/2019 10:38 AM TEST EXAMINER 10/18/2019 12:43 PM TEST EXAMINER Narrative Resulting Agency Comment CLI Kevyn [facility] MICROBIOLOGY - GENERAL AUDRA GRUBER Final Result [address] [address], [facility] [phone] from Last 3 Months or Most Recently Relevant to Health Maintenance Insurance MEDICARE MEDICARE [facility] MEDICARE BLUE CROSS MEDICARE SUPPLEMENT Care Teams House Wirer Helper Relationship Specialty Start Date End Date Vashti Garay NP [address] [place] [address] PCP - General Family Medicine 11/24/24
--- OUTSIDE RECORDS SUMMARY | 2024-12-14 01:19 | XMS_ITS | CONTINUITY OF CARE DOCUMENT ---
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 Charo Geiger MD DIZZINESS active Charo Geiger MD FATIGUE active Charo Geiger MD SICK SINUS SYNDROME active Charo sabillon MD Chest pain-type to be determined active Darcy Geiger MD Tobacco use, quit active Charo Geiger MD Carotid artery stenosis, L ICA <50% active Charo Geiger MD status post DC PM Coral Sci entific/ Gen change DC PM Biotronik 01/17/22 ( NOT MRI SAFE /Coral Leads) active Raymond Hart Current long-term use of Sotalol active Omaira Donnelly Neuropathy, peripheral active Harjit tucker Hypertension active Clive Quintana Abnormal EKG active Raymond Hart Hypotension active Damian Ahmedzai Foot pain, bilateral active Damian Ahmedzai Hypercholesterolemia active Ibis meloer ENCOUNTERS Date Type Provider Location Encounter Diag nosis - In-person encounter Office Visit Charo Geiger MD [facility] - In-person encounter Office Visit Charo Geiger MD [facility] Foot pain, bilateral - In-person encounter Office Visit Charo Geiger MD [facility] Hypotension - In-person encounter Office Visit Charo Geiger MD [facility] - In-person encounter Office Visit Charo Geiger MD [facility] status post DC PM Coral [employer]/ Gen change DC PM Biotronik 01/17/22 ( NOT MRI SAFE /Coral Leads) - In-person encounter Office Visit Charo Geiger MD [facility] Office - In-person encounter Office Visit Charo Geiger MD [facility] - In-person encounter Office Visit Charo Geiger MD [facility] Abnormal EKG - In-person encounter Office Visit Charo Geiger MD [facility] Hypertension - In-person encounter Office Visit Charo Geiger MD [facility] status post DC PM [employer]al [employer]/ Gen change DC PM Biotronik 01/17/22 ( NOT MRI SAFE /Coral Leads) - In-person encounter Office Visit Charo Pérez Office Neuropathy, peripheral - In-person encounter Office Visit hCaro Geiger MD [place] ATRIAL FIB - 12/13 HOLTER SR, ATRIAL ARRYTHMIA HR 35-90Carotid artery stenosis, L ICA <50%status post DC PM [employer]al [employer]/ Gen change DC PM Biotronik 01/17/22 ( NOT MRI SAFE /Coral Leads)Current long-term use of Sotalol - In-person encounter Office Visit Charo Geiger MD [facility] Tobacco use, quitCarotid artery stenosis, L ICA <50%Hypercholesterol emiastatus post DC PM [employer]/ Gen change DC PM Biotronik 01/17/22 ( NOT MRI SAFE /Coral Leads) - In-person encounter Office Visit Charo Geiger MD [facility] - In-person encounter Office Visit Charo Geiger MD [facility] Chest pain-type to be determined - In-person encounter Office Visit Charo Geiger MD [facility] - In-person encounter Office Visit Charo Geiger MD [facility] ATRIAL FIB - 12/13 HOLTER SR, ATRIAL ARRYTHMIA HR 35-90SICK SINUS SYNDROME - In-person encounter Office Visit Charo Geiger MD [facility] - In-person encounter Office Visit Charo Geiger MD [facility] ATRIAL FIB - 12/13 HOLTER SR, ATRIAL ARRYTHMIA HR 35-90DIZZINESSFATIGU E VITAL SIGNS Date Observation Value Provider Body Mass Index (Ratio) 25.09 kg/m2 Damian Rodriguez blood pressure, diastolic 87 mm[Hg] Safia Tran blood pressure, systolic 129 mm[Hg] Dona Tran oxygen saturation, oximetry 97 % Krupa Tran pulse rate 69 /min Kurpa Tran respiratory rate E&M 12 /min Krupa Tran weight E&M 185 [lb_av] Krupa Tran height E&M 72 [in_i] Krupa Tran blood pressure, cuff size regular Safia Tran Body Mass Index (Ratio) 25.36 kg/m2 Damian Rodriguez blood pressure, diastolic 92 mm[Hg] Li nkLogic blood pressure, systolic 133 mm[Hg] Maureen kLogic blood pressure, cuff size regular Ja rret blood pressure, diastolic 92 mm[Hg] Ja rret blood pressure, systolic 133 mm[Hg] Aldo ret pulse rate 70 /min Adryan y respiratory rate E&M 14 /min Adryan oxygen saturation, oximetry 96 % weight E&M 187 [lb_av] Adryan y height E&M 72 [in_i] Adryan y Body Mass Index (Ratio) 24.68 kg/m2 Damian [facility] blood pressure, cuff size regular Ke rri Gruenenfelder blood pressure, diastolic 80 mm[Hg] Ke rri Gruenenfelder blood pressure, systolic 130 mm[Hg] Yasir ri Devenuenenfelder oxygen saturation, oximetry 96 % Ibis Armandonfelder respiratory rate E&M 12 /min Ibis verdugoer pulse rate 92 /min Ibis Grrayanealfredoe lder weight E&M 182 [lb_av] Ibis Gruenenfe lder height E&M 72 [in_i] Ibis Gruenenfe lder Body Mass Index (Ratio) 24.82 kg/m2 [facility], cuff size large Ke rri Gruenenfelder blood pressure, diastolic 88 mm[Hg] Ke rri Gruenenfelder blood pressure, systolic 120 mm[Hg] Yasir ri Gruenenfelder oxygen saturation, oximetry 98 % Ibis Gruenenfelder respiratory rate E&M 16 /min Ibis G ruenenfelder pulse rate 70 /min Ibis Gruenenfe lder weight E&M 183 [lb_av] Ibis Gruenenfe lder height E&M 72 [in_i] Ibis Gruenenfe lder Body Mass Index (Ratio) 25.22 kg/m2 Damianpedro Quiñoneszai blood pressure, cuff size large Ke rri Gruenenfelder blood pressure, diastolic 76 mm[Hg] Ke rri Gruenenfelder blood pressure, systolic 112 mm[Hg] Ker ri Gruenenfelder oxygen saturation, oximetry 97 % Ibis Gruenenfelder respiratory rate E&M 16 /min Ibis G ruenenfelder pulse rate 78 /min Ibis Gruenenfe lder weight E&M 186 [lb_av] Ibis Gruenenfe lder height E&M 72 [in_i] Ibis Gruenenfe lder Body Mass Index (Ratio) 25.09 kg/m2 Taew on Tanner blood pressure, cuff size large Ke rri Gruenenfelder blood pressure, diastolic 80 mm[Hg] Ke rri Gruenenfelder blood pressure, systolic 122 mm[Hg] Ker ri Gruenenfelder oxygen saturation, oximetry 96 % Ibis Gruenenfelder respiratory rate E&M 16 /min Ibis G ruenenfelder pulse rate 78 /min Ibis Gruenenfe lder weight E&M 185 [lb_av] Ibis Gruenenfe lder height E&M 72 [in_i] Ibis Gruenenfe lder Body Mass Index (Ratio) 24.14 kg/m2 Jord dewayne Quintana blood pressure, cuff size regular Cy gina Oreilly blood pressure, diastolic 80 mm[Hg] Cy gina Oreilly blood pressure, systolic 115 mm[Hg] Shalini anastasiia Oreilly pulse rate 80 /min Vandana manriquez oxygen saturation, oximetry 95 % Vandana Oreilly respiratory rate E&M 16 /min Vandana Oreilly weight E&M 178 [lb_av] Vandana Gresham height E&M 72 [in_i] Vandana Garywaqar temperature site temporal Yamile Tank sle temperature E&M 97.3 [degF] Yamile Tanks [place] Body Mass Index (Ratio) 25.77 kg/m2 Kevyn mendoza Avelino blood pressure, cuff size regular Ke rri Edmund blood pressure, diastolic 86 mm[Hg] Ke rri Edmund blood pressure, systolic 120 mm[Hg] Yasir Shaffer oxygen saturation, oximetry 98 % Ibis Shaffer respiratory rate E&M 18 /min Ibis arnett pulse rate 75 /min Ibis melo weight E&M 190 [lb_av] Ibis Hardwick er height E&M 72 [in_i] Ibis Mulu [facility] Body Mass Index (Ratio) 27.26 kg/m2 Will erickson Yesenia Phillips blood pressure, cuff size regular Kr isty Marielle blood pressure, diastolic 82 mm[Hg] Kr isty [place] blood pressure, systolic 136 mm[Hg] Kri adam [place] oxygen saturation, oximetry 97 % Ruth Marielle respiratory rate E&M 17 /min Ruth Palomares pulse rate 75 /min Ruth Palomares weight E&M 201 [lb_av] Ruth Linares height E&M 72 [in_i] Ruth [place] Body Mass Index (Ratio) 27.53 kg/m2 Mariano Caroberg blood pressure, resting No Mariano chou [facility] blood pressure, cuff size regular Ke rri Brannon blood pressure, diastolic 73 mm[Hg] Ke rri Edmund blood pressure, systolic 111 mm[Hg] Yasir Shaffer oxygen saturation, oximetry 93 % Ibis Shaffer respiratory rate E&M 16 /min Ibis arnett pulse rate 95 /min Ibis Hardwick [facility] weight E&M 203 [lb_av] Ibis Hardwick [facility] height E&M 72 [in_i] Ibis Mulu [facility] Body Mass Index (Ratio) 25.22 kg/m2 [facility] weight E&M 186 [lb_av] Concetta Stuart blood pressure, diastolic 88 mm[Hg] Fl vicky Stuart blood pressure, systolic 137 mm[Hg] Tiffany espinozaa Stuart pulse rate 78 /min Concetta Stuart oxygen saturation, oximetry 98 % Concetta Stuart respiratory rate E&M 16 /min Concetta Stuart blood pressure, diastolic 84 mm[Hg] Me vicky Stuart blood pressure, systolic 129 mm[Hg] Tiffany meagan Stuart Body Mass Index (Ratio) 25.90 kg/m2 [facility] 72 /min Concetta Stuart oxygen saturation, oximetry 98 % Concetta Stuart respiratory rate E&M 14 /min Concetta Stuart weight E&M 191 [lb_av] Concetta Singerann blood pressure, diastolic, left arm 75 mm [Hg] Praveena Blunt blood pressure, systolic, left arm 117 mm [Hg] Praveena Blunt blood pressure, diastolic, right arm 76 m m[Hg] Praveena Blunt blood pressure, systolic, right arm 113 m m[Hg] Praveena Blunt blood pressure, diastolic 76 mm[Hg] He ather Blunt blood pressure, systolic 113 mm[Hg] Hea ther Blunt pulse rate 70 /min Praveena Blunt oxygen saturation, oximetry 97 % Praveena Blunt respiratory rate E&M 16 /min Praveena Blunt weight E&M 168 [lb_av] Praveena Blunt Body Mass Index (Ratio) 24.91 kg/m2 Vitaliy Trejo blood pressure, diastolic 80 mm[Hg] Owen blood pressure, systolic 118 mm[Hg] Carlos Trejo pulse rate 75 /min Dalia Trejo oxygen saturation, oximetry 95 % Dalia Trejo respiratory rate E&M 16 /min Dalia Trejo weight E&M 183 [lb_av] Dalia Trejo blood pressure, diastolic 82 mm[Hg] Antonio Aguilar RN blood pressure, systolic 123 mm[Hg] Jose Roberto Aguilar RN pulse rate 72 /min Jose Roberto Aguilar RN oxygen saturation, oximetry 97 % Jose Roberto Aguilar RN respiratory rate E&M 16 /min Jose Roberto vela RN weight E&M 181 [lb_av] Jose Roberto Aguilar RN Body Mass Index (Ratio) 25.18 kg/m2 Schreiber i Edmund blood pressure, diastolic 78 mm[Hg] Ke rri Edmund blood pressure, systolic 122 mm[Hg] Yasir perry Edmund pulse rate 75 /min Ibis Pawelshira josé miguel oxygen saturation, oximetry 97 % Ibis Edmund respiratory rate E&M 14 /min Ibis Malone ayahcamerontera weight E&M 185 [lb_av] Ibis valdez blood pressure, diastolic, left arm 86 mm [Hg] Rukhsana Morrison blood pressure, systolic, left arm 141 mm [Hg] Rukhsana Morrison blood pressure, diastolic, right arm 90 m m[Hg] Rukhsana Morrison blood pressure, systolic, right arm 132 m m[Hg] Rukhsana Morrison weight E&M 184.2 [lb_av] Rukhsana Morrison height E&M 72 [in_i] Rukhsana Morrison ALLERGIES No Known Drug Allergies RESULTS Date Observation Value Provider Reference Range Interpretation Location 4 platelet count 275 10*3/mm3 Carlos Manuel Elam 4 hematocrit, blood 43.3 % Carlos Manuel Elam 4 creatinine, serum 1.20 mg/dL Carlos Manuel Elam 4 potassium, serum 4.6 mmol/L Carlos Manuel Elam 4 sodium, serum 139 mmol/L Carlos Manuel Elam HISTORY OF MEDICATION USE Medication Status Instructions Dates Provider Indications Com ments lansoprazole 30 mg capsule,delayed release(DR/EC) active Damian Rodriguez cilostazol 100 mg tablet active Damian Rodriguez sotalol 80 mg tablet active 1/2 tablet twice a day Margarita Tapia NP sertraline 50 mg tablet active 2 tabs daily Margarita Tapia NP hydrochlorothiazide 12.5 mg capsule completed TAKE 1 CAPSULE BY MOUTH EVERY DAY 05/02 - 05/02 Margarita Tapia NP atorvastatin 40 mg tablet active Take 1 tablet by mouth once a day 04/17 Ibis Shaffer Percocet 5-325 mg tablet active Take 1 tablet by mouth every six hours as needed for pain do ot drive or fly for 24 after taking this medication 01/17 Charo Geiger MD clindamycin HCl 150 mg capsule completed Take 1 capsule by mouth three times a day TAKE 1 CAPSULE BY MOUTH EVERY EIGHT HOURS 01/17 - 05/02 Margarita Tapia NP magnesium oxide 400 mg (241.3 mg magnesium) tablet active TAKE 1 TABLET BY MOUTH TWICE A DAY 01/12 bIis Shaffer sotalol 120 mg tablet completed Take 0.5 tablet by mouth twice a day 01/09 - 05/02 Margarita Tapia NP atorvastatin 40 mg tablet completed - 04/17 Ibis Shaffer magnesium oxide 400 mg (241.3 mg magnesium) tablet completed 1 tablet twice a day 11/24 - 01/12 Raymond Hart cyclobenzaprine 10 mg tablet completed Take 1 once a day 09/16 - 01/04 Ibis Shaffer famotidine 40 mg tablet active Take 1 once a day 09/16 Ibis Shaffer pantoprazole 40 mg tablet,delayed release (DR/EC) completed 1 tablet by mouth once a day 09/16 - 12/03 Damian Rodriguez Fish Oil 300-1,000 mg capsule completed 1 tablet once a day 09/16 - 01/04 Ibis Shaffer cholecalciferol (vitamin D3) 125 mcg (5,000 unit) capsule active 1 tablet by mouth once a day 09/16 Ibis Shaffer dicyclomine 10 mg capsule active Take 1 capsule four times a day as needed 01/20 Margarita Tapia NP hydrochlorothiazide 12.5 mg capsule completed Take 1 tablet once a day 01/20 - 05/02 Sharmin Ordoñez GABAPENTIN 600 MG ORAL TABLET completed take one pill three times a day 11/01 - 04/02 Ibis Shaffer Lipitor 40 mg tablet completed 1 tablet on ce a day 09/16 - 04/17 Ibis Shaffer sotalol 120 mg tablet completed 0.5 tablet twice a day 09/10 - 01/09 Stacy Maldonado NP FISH OIL CAPSULE completed 3 grams ONE TAB. DAILY - 09/16 Concetta Sade ASPIRIN 81 MG ORAL TABLET active 1 tablet once a day Jose Roberto Aguilar RN MULTIVITAMINS ORAL CAPSULE active 1 tablet once a day Jose Roberto Aguilar RN finasteride 5 mg tablet active once a day Jose Roberto Aguilar RN trazodone 100 mg tablet active every night Jose Roberto Aguilar RN DICYCLOMINE HCL 10 MG ORAL CAPSULE completed prn - 09/16 Concetta Sade IBUPROFEN 800 MG ORAL TABLET completed prn - 11/24 Raymond Hart CHLORHEXIDINE GLUCONATE LIQUID completed by mouth - 01/04 Jose Roberto Aguilar RN SIMVASTATIN 40 MG ORAL TABLET completed ONE TAB. DAILY - 09/16 Concetta Stuart tamsulosin 0.4 mg capsule active 1 tablet once a day Jose Roberto Aguilar RN hydrocodone-acetamino phen 7.5-325 mg tablet active 1 tablet as needed 11/14 Ibis Shaffer SOTALOL HCL 80 MG ORAL TABLET completed ONE tablet daily - 09/10 Charo Geiger MD ASPIR-81 81 MG ORAL TABLET DELAYED RELEASE completed 04/30 - 04/02 Ibis Shaffer SOCIAL HISTORY Date Observation Value Provider drug use no Damian Rodriguez alcohol use no Damian Rodriguez passive cigarette sm paula exposure yes Damian Rodriguez smoking, year quit 1998 Damian mccarty number of years as a smoker 35 a Damian Rodriguez smoking history, tot al pack/year 40 Damian Rodriguez smoking history, tot al pack/day 1 Damian Rodriguez cigarette use yes Damian Rodriguez smoking status Former smoker Damian Browning i drug use no Damian Rodriguez alcohol use no Damian Rodriguez passive cigarette sm paula exposure yes Damian Rodriguez smoking, year quit 1998 Damian mccarty number of years as a smoker 35 a Damian Rodriguez smoking history, tot al pack/year 40 Damian Rodriguez smoking history, tot al pack/day 1 Damian Rodriguez cigarette use yes Damian Rodriguez smoking status Former smoker Damian Browning i number of years as a smoker 35 a Margarita Driscollr CARBONATION EQUIPMENT OPERATOR smoking history, tot al pack/day 1 Margarita Calderóndler CARBONATION EQUIPMENT OPERATOR cigarette use yes Margarita Lay er CARBONATION EQUIPMENT OPERATOR passive cigarette sm paula exposure yes Margarita Calderóndler CARBONATION EQUIPMENT OPERATOR smoking status Former smoker Margarita Stephane dler CARBONATION EQUIPMENT OPERATOR social history E&M Marital Statu s: C pameladren: 1 child Smoking History: P atient is a former smoker. Damian Rodriguez social history reviewed E&M revi ewed - no changes required Damian Rodriguez passive cigarette sm paula exposure yes Ibis Carvalhocarlene smoking status Former smoker Ibis Roberts nfelder social history reviewed E&M revi ewed - no changes required Taewon Tanner passive cigarette sm paula exposure yes Ibis Armasyoni smoking status Former smoker Ibis Roberts nfelder social history E&M Marital Statu s: C hildren: 1 child Smoking History: P atient is a former smoker. Joonon Tanner social history reviewed E&M revi ewed - no changes required Taewon Tanner passive cigarette sm paula exposure yes Ibis Armasyoni smoking status Former smoker Ibis Roberts nfelder social history reviewed E&M revi ewed - no changes required Clive Quintana passive cigarette sm paula exposure yes Vandana Oreilly smoking status Former smoker Vandana mora social history reviewed E&M revi ewed - no changes required Leon Avelino social history E&M Marital Statu s: Eddie evans: 1 child Smoking History: P atient is a former smoker. Leon You alcohol use no Ibis Harshale lder drug use no Ibis Harshale lder passive cigarette sm paula exposure yes Ibis Robertstera smoking status Former smoker [facility]bis [facility] number [facility] grandchildren Charo Phillips social history reviewed E&M revi ewed - no changes required Harjit Phillips smoking status Former smoker Artem young social history reviewed E&M revi ewed - no changes required Artem Donnelly social history E&M Marital Statu s: Eddie evans: 1 child Smoking History: P atient is a former smoker. Artem Donnelly alcohol use no Ibis Hardwick lder drug use no Artem Virginia umana passive cigarette sm paula exposure yes Ibis Carvalhocarlene social history E&M Marital Statu s: Eddie evans: 1 child Smoking History: P atient is a former smoker. Charo Geiger MD social history reviewed E&M revi ewed - no changes required Charo Geiger MD alcohol use no Concetta Stuart drug use none Concetta Stuart passive cigarette sm paula exposure yes Concetta Stuart smoking status Former smoker Concetta najera social history reviewed E&M revi ewed - no changes required Charo Geigre MD drug use none Concetta Stuart passive cigarette sm paula exposure yes Concetta Stuart smoking/tobacco cess ation, patient education and counseling yes Concetta Stuart smoking status Former smoker Concetta Ashby dania drug use none Praveena Blunt passive cigarette sm paula exposure yes Praveena Blunt smoking/tobacco cess ation, patient education and counseling yes Praveena Blunt smoking status Former smoker Praveena Blun t social history E&M Marital Statu s: C hildren: 1 child Charo Geiger MD number of children 1 child Charo maloney MD social history reviewed E&M reviewed Charo Geiger MD drug use none Charo topete MD social history reviewed E&M reviewed Jose Roberto Aguilar RN smoking/tobacco cess ation, patient education and counseling yes Charo Geiger MD social history reviewed E&M reviewed Charo Geiger MD drug use none Charo topete MD passive cigarette sm paula exposure yes Ibis Shaffer smoking history, tot al pack/year 40 Ibis Shaffer smoking, year quit 1998 Ibis shields smoking status former smoker Charo fleming MD social history E&M Marital Status: Divorc ed Charo Geiger MD passive cigarette sm paula exposure no Charo Geiger MD drug use none Charo topete MD social history reviewed E&M reviewed Charo Geiger MD MENTAL STATUS Date Observation Value Provider assessment of judgme nt and insight E&M Alert and oriented to time, place and person. Mood and affect are normal. Charo Geiger MD assessment of judgme nt and insight E&M Alert and oriented to time, place and person. Mood and affect are normal. Jose Roberto Aguilar RN assessment of judgme nt and insight E&M Alert and oriented to time, place and person. Mood and affect are normal. Charo Geiger MD assessment of judgme nt and insight E&M Alert and oriented to time, place and person. Mood and affect are normal. Charo Geiger MD FAMILY HISTORY Family Member Condition Father Family History of Ot her Cancer Mother Family History of Ot her Cancer Father Family History of Co ronary Artery Disease: INSURANCE PROVIDERS Payer name Policy type / Coverage type Ruffin red democrat ID [facility] [id number] [place] Medicare [id number] ADVANCE DIRECTIVES Name Date DISCUSSED - NO DECISION MADE TREATMENT PLAN Date Name Performer [id number],C,p ostural dizziness and hypotension B P stable today Discussion of benefits for remote patient monitoring took place. Patient gives consent for remote monitoring of physiologic parameters including, but not limited to, weight, blood pressure, pulse oximetry, respiratory flow rate. Margarita Tapia NP [id number],C, carotids mild plaque, <50%. will recheck carotids 08/2023 Margarita Tapia NP [id number],C, H is updated medication list for this problem includes: Atorvastatin 40 Mg Tablet (Atorvastatin) ..... Take 1 tablet by mouth once a day Margarita Tapia NP [id number],C,l ast 0% AF, RA pacing 99, RV 1%, no significant arrhythmias Margarita Tapia NP [id number],C,t ricki 130/80 Discussion of benefits for remote patient monitoring took place. Patient gives consent for remote monitoring of physiologic parameters including, but not limited to, weight, blood pressure, pulse oximetry, respiratory flow rate. Margarita Tapia NP [id number],C,A T/AF Thomas: 0.0% Damian Rodriguez [id number],C,A T/AF Thomas: 0.0% % Pacing: RA - 91.0% RV - 0.0% n ormal function [facility] [id number],C,Improved [facility] [id number],C,No CP [facility] [id number],C, B P today: 120/88 P rior BP: 112/76 (01/04/2022) Labs Reviewed: C reat: 1.20 (08/24/2013) [facility] [id number],C, H is updated medication list for this problem includes: Atorvastatin 40 Mg Tablet (Atorvastatin) ..... Take 1 tablet by mouth once a day [facility] [id number],B, s atisfactory function i ncision healing well Orders: Kira guzman No Charge (CPT-82504) Raymond Hart [id number],C, S /p gen change on 01/17/22. Pt. has been having some pain at incision site for the last few days. Sent in refill. Aware patient is already on medication for neuropathy. Ricardo Perea [id number],S, H is updated medication list for this problem includes: Sotalol 120 Mg Tablet (Sotalol) ..... 0.5 tablet twice a day Stacy Maldonado CARBONATION EQUIPMENT OPERATOR [id number],B, Stacy del real CARBONATION EQUIPMENT OPERATOR [id number],S,per PCP Claudia Maldonado CARBONATION EQUIPMENT OPERATOR [id number],S, Stacy del real CARBONATION EQUIPMENT OPERATOR [id number],S,c ontrolled His updated medication list for this problem includes: Sotalol 120 Mg Tablet (Sotalol) ..... 0.5 tablet twice a day Hydrochlorothiazide 12.5 Mg Capsule (Hydrochlorothiazide) ..... Take 1 tablet once a day Stacy Maldonado CARBONATION EQUIPMENT OPERATOR [id number],W,w ill schedule battery change as device is at [facility]. Stacy Maldonado CARBONATION EQUIPMENT OPERATOR Electrophysiology:[place] is MRI safe, normal function Damian Electrophysiology:Chandes CP or SOB. His updated medication list for this problem includes: Cilostazol 100 Mg Tablet (Cilostazol) Sotalol 80 Mg Tablet (Sotalol) ..... 1/2 tablet twice a day [facility] Electrophysiology: H is updated medication list for this problem includes: Atorvastatin 40 Mg Tablet (Atorvastatin) ..... Take 1 tablet by mouth once a day [facility] Electrophysiology:Th is visit has been a part of the consistent, comprehensive, and ongoing management of the chronic medical condition(s) listed above for the patient. BP today: 129/87 P rior BP: 133/92 (11/14/2023) Labs Reviewed: C reat: 1.20 (08/24/2013) His updated medication list for this problem includes: Sotalol 80 Mg Tablet (Sotalol) ..... 1/2 tablet twice a day [facility] Electrophysiology:ze ro AF burden from remote device check H is updated medication list for this problem includes: Cilostazol 100 Mg Tablet (Cilostazol) Sotalol 80 Mg Tablet (Sotalol) ..... 1/2 tablet twice a day [facility] Electrophysiology: O rders: A rterial Duplex Bi-Lower EX (CPT-89912) A rterial - SENSILASE (CPT-64739) 9 9215 HIGH 40-54min (CPT-69003) [facility] Electrophysiology: H is updated medication list for this problem includes: Atorvastatin 40 Mg Tablet (Atorvastatin) ..... Take 1 tablet by mouth once a day [facility] Electrophysiology: B P today: 133/92 P rior BP: 130/80 (05/02/2023) Labs Reviewed: C reat: 1.20 (08/24/2013) His updated medication list for this problem includes: Sotalol 80 Mg Tablet (Sotalol) ..... 1/2 tablet [facility] a [facility]: H is updated medication list for this problem includes: Cilostazol 100 Mg Tablet (Cilostazol) Sotalol 80 Mg Tablet (Sotalol) ..... 1/2 tablet twice a day [facility]:no rmal function A T/AF Thomas: 0.0% % Pacing: RA - 99.0% RV - 0.0% [facility]: H is updated medication list for this problem includes: Cilostazol 100 Mg Tablet (Cilostazol) Sotalol 80 Mg Tablet (Sotalol) ..... 1/2 tablet twice a day [facility] Electrophysiology:po stural dizziness and hypotension B P stable today Discussion of benefits for remote patient monitoring took place. Patient gives consent for remote monitoring of physiologic parameters including, but not limited to, weight, blood pressure, pulse oximetry, respiratory flow rate. Margarita Tapia NP Electrophysiology:2021 carotids mild plaque, <50%. will recheck carotids 08/2023 Margarita Tapia NP Electrophysiology: H is updated medication list for this problem includes: Atorvastatin 40 Mg Tablet (Atorvastatin) ..... Take 1 tablet by mouth once a day Margarita Tapia NP Electrophysiology:la st 0% AF, RA pacing 99, RV 1%, no significant arrhythmias Margarita Tapia NP Electrophysiology:to day 130/80 Discussion of benefits for remote patient monitoring took place. Patient gives consent for remote monitoring of physiologic parameters including, but not limited to, weight, blood pressure, pulse oximetry, respiratory flow rate. Margarita Tapia NP Electrophysiology:AT /AF Thomas: 0.0% [facility] Electrophysiology:AT /AF Thomas: 0.0% % Pacing: RA - 91.0% RV - 0.0% n ormal function Damian Rodriguez Electrophysiology:Improved Damian Rodriguez Electrophysiology:No CP Damian hong Electrophysiology: B P today: 120/88 P rior BP: 112/76 (01/04/2022) Labs Reviewed: C reat: 1.20 (08/24/2013) Damian Browning Electrophysiology: H is updated medication list for this problem includes: Atorvastatin 40 Mg Tablet (Atorvastatin) ..... Take 1 tablet by mouth once a day Damian Browningclaudy Electrophysiology: s atisfactory function i ncision healing well Orders: G megan No Charge (CPT-82233) Raymond Hart Telehealth: S /p gen change on 01/17/22. Pt. has been having some pain at incision site for the last few days. Sent in refill. Aware patient is already on medication for neuropathy. Ricardo Perea Electrophysiology: H is updated medication list for this problem includes: Sotalol 120 Mg Tablet (Sotalol) ..... 0.5 tablet twice a day Stacy Maldonado NP Electrophysiology Stacy ng NP Electrophysiology:per PCP Stacy Maldonado NP Electrophysiology Stacy ng NP Electrophysiology:co ntrolled His updated medication list for this problem includes: Sotalol 120 Mg Tablet (Sotalol) ..... 0.5 tablet twice a day Hydrochlorothiazide 12.5 Mg Capsule (Hydrochlorothiazide) ..... Take 1 tablet once a day Stacy Maldonado NP Electrophysiology:wi ll schedule battery change as device is at [facility]. Stacy Maldonado NP Electrophysiology Fo llow up : H is updated medication list for this problem includes: Lipitor 40 Mg Oral Tablet (Atorvastatin calcium) ..... One tab. daily Orders: S tress Regadenoson (CPT-53292) Raymond Hart Electrophysiology Fo llow up : s /p DC PPM. His updated medication list for this problem includes: Aspirin 81 Mg Oral Tablet (Aspirin) ..... One tab. daily Sotalol Hcl 120 Mg Oral Tablet (Sotalol hcl) ..... Half tablet twice daily Raymond Hart Electrophysiology Fo llow up :[place] Clinical Findings B attery Longevity: 1 year and 6 months remaining % Pacing: RA - 96% RV - 1% T echnician Summary: P resenting EGM: AP/VS 2 NS-VT events, longest duration 8 sec - f astest avg ventricular rate 178 bpm I CM trend is stable B attery: OK N ext Remote: 11/27/2020 His updated medication list for this problem includes: Aspirin 81 Mg Oral Tablet (Aspirin) ..... One tab. daily Sotalol Hcl 120 Mg Oral Tablet (Sotalol hcl) ..... Half tablet twice daily Raymond Hart Electrophysiology Fo llow up : O rders: S cristino Dunhamosnena (CPT-20654) His updated medication list for this problem includes: Aspirin 81 Mg Oral Tablet (Aspirin) ..... One tab. daily Sotalol Hcl 120 Mg Oral Tablet (Sotalol hcl) ..... Half tablet twice daily Raymond Hart Cardiology: B P today: 115/80 P rior BP: 120/86 (11/20/2018) Labs Reviewed: C reat: 1.20 (08/24/2013) His updated medication list for this problem includes: Hydrochlorothiazide 12.5 Mg Oral Capsule (Hydrochlorothiazide) ..... Take 1 tab daily Aspirin 81 Mg Oral Tablet (Aspirin) ..... One tab. daily Sotalol Hcl 120 Mg Oral Tablet (Sotalol hcl) ..... Half tablet twice daily Clive Quintana Cardiology: O rders: C omplete Echo (CPT-28465) C arotid Duplex Bilateral (CPT-16861) C OMPREHENSIVE METABOLIC PANEL, W/EGFR (53064) L IPID PANEL (6220) T HYROID PANEL (8920) M AGNESIUM (622) Clive Quintana Cardiology: H is updated medication list for this problem includes: Aspirin 81 Mg Oral Tablet (Aspirin) ..... One tab. daily Sotalol Hcl 120 Mg Oral Tablet (Sotalol hcl) ..... Half tablet twice daily Clive Mariano Cardiology: O rders: C omplete Echo (CPT-02087) C arotid Duplex Bilateral (CPT-37705) C OMPREHENSIVE METABOLIC PANEL, W/EGFR (73128) L IPID PANEL (7600) T HYROID PANEL (7020) M AGNESIUM (622) Clive Quintana Electrophysiology Fo llow up : L ast remote check 09/28/18 showed 0% AT/AF burden. R emains on Sotalol. O nly on ASA for AC. C [id number] score is 2. Check echo doppler in 1-2 weeks to reassess atrial sizes and LV function. Orders: 9 9215 HIGH Complex (CPT-17890) S chedule Followup (*) C omplete Echo (CPT-55080) His updated medication list for this problem includes: Aspirin 81 Mg Oral Tablet (Aspirin) ..... One tab. daily Sotalol Hcl 120 Mg Oral Tablet (Sotalol hcl) ..... Half tablet twice daily Leon Avelino Electrophysiology Fo llow up : s /p DC PPM. His updated medication list for this problem includes: Aspirin 81 Mg Oral Tablet (Aspirin) ..... One tab. daily Sotalol Hcl 120 Mg Oral Tablet (Sotalol hcl) ..... Half tablet twice daily Leon Avelino Electrophysiology Fo llow up : N ormal function. N o episodes reported. L ast remote check 09/28/18 showed 0% AT/AF burden. Leon You Electrophysiology - faxed 3, lo:Normal echo. < 50% stenosis bilat. ICA. Harjit Phillips Electrophysiology - faxed 11-26, lo:< 50% stenosis of ICA bilaterally. Harjit Phillips Electrophysiology - faxed 11-26, lo: H is updated medication list for this problem includes: Atorvastatin Calcium Tabs (Atorvastatin calcium tabs) ..... Once daily Harjit Phillips Electrophysiology - faxed 11-26, lo:Normal function. N o episodes reported. 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 P atient is experiencing significant pain and may be prescribed pain medication to use as needed. Harjit Patterson Jacqueline Cardiology Follow up faxed 11/25/16:Orders: C arotid Duplex Bilateral (CPT-21329) Artem Donnelly Cardiology Follow up faxed 11/25/16:His updated medication list for this problem includes: Atorvastatin Calcium Tabs (Atorvastatin calcium tabs) ..... Once daily [facility] Cardiology Follow up faxed :No recurrence. [facility] Cardiology Follow up faxed 11/25/16:Orders: C OMPREHENSIVE METABOLIC PANEL W/EGFR (00447) C BC (INCLUDES DIFF/PLT) (6399) T HYROID PANEL WITH TSH, 3RD GENERATION (7444) L IPID PANEL (7600) M AGNESIUM (622) Artem [facility] Cardiology Follow up faxed 11/25/16:His updated medication list for this problem includes: Aspirin 81 Mg Tabs (Aspirin) ..... One tab. daily Sotalol Hcl 120 Mg Tabs (Sotalol hcl) ..... Half tablet twice daily Orders: E KG (CPT-55309) Artem Donnelly EP faxed 10/16/15:Ord ers: C arotid Duplex Bilateral (CPT-05536) Charo Geiger MD EP faxed 10/16/15:Polly ds2-score is equal or less than 1. H is updated medication list for this problem includes: Aspirin 81 Mg Tabs (Aspirin) ..... One tab. daily Sotalol Hcl 120 Mg Tabs (Sotalol hcl) ..... One 1/2 tab. twice daily Charo Geiger MD follow up faxed 09/21/14 0839 Darcy Geiger MD follow up faxed 09/21/14 0839 Darcy Geiger MD follow up faxed 09/21/14 0839 Darcy Geiger MD follow up faxed 09/21/14 0839 Darcy Geiger MD Date Name Carotid Duplex Bilat eral Aorta Duplex Ultraso und Complete Echo Arterial - SENSILASE Arterial Duplex Bi-L ower EX Carotid Duplex Bilat eral RPM (remote patient monitoring) Carotid Duplex Bilat eral Complete Echo PROTHROMBIN TIME WIT H INR LIPID PANEL CBC (INCLUDES DIFF/P LT) BASIC METABOLIC PANE L W/EGFR Generator Change - S LHV Aorta Duplex Ultraso und Carotid Duplex Bilat eral Complete Echo Stress Regadenoson MAGNESIUM THYROID PANEL LIPID PANEL COMPREHENSIVE METABO LIC PANEL, W/EGFR Carotid Duplex Bilat eral Complete Echo Complete Echo Arterial Duplex Bi-L ower EX MAGNESIUM LIPID PANEL THYROID PANEL WITH T SH, 3RD GENERATION CBC (INCLUDES DIFF/P LT) COMPREHENSIVE METABO LIC PANEL W/EGFR Complete Echo Carotid Duplex Bilat eral Aortic Abdominal Ult rasound Aortic Abdominal Ult rasound Carotid Duplex Bilat eral Complete Echo STR - Nuclear Carotid Duplex Bilat eral Complete Echo Dual Chamber with Re programming Pacemaker Dual Chamb er - GC Holter Monitor 24 Hr Mobile Cardiac Tele Complete Echo HISTORY OF PROCEDURES Procedure Date Procedure Name Provider Procedure Notes S tatus Complex e/m visit ad d on Charo Geiger MD completed EKG Charo sabillon MD completed EKG Charo sabillon MD completed EKG Charo sabillon MD completed EKG Charo sabillon MD completed Schedule Followup Charo balderrama MD 1 y with echo and carotids completed EKG Charo sabillon MD completed ICM Interrogation, Remote (Prof) Charo Geiger MD INTERROGATION EVAL REMOTE </30 D CV MNTR SYS completed ICM Interrogation, Remote (Tech) Charo Geiger MD INTERROGATION EVAL REMOTE </30 D TECH REVIEW completed ICM Interrogation, Remote (Prof) Charo Geiger MD INTERROGATION EVAL REMOTE </30 D CV MNTR SYS completed ICM Interrogation, Remote (Tech) Charo Geiger MD INTERROGATION EVAL REMOTE </30 D TECH REVIEW completed ICM Interrogation, Remote (Prof) Charo Geiger MD INTERROGATION EVAL REMOTE </30 D CV MNTR SYS completed Pacemaker Interrogation, Remote (Tech) Charo Geiger MD INTERROGATION REMOTE </90 D RADIOLOGY RN REVIEW completed Pacemaker Interrogation, Remote (Prof) Charo Geiger MD INTERROGATION EVAL REMOTE </90 D 1/2/MEDICAL DONATION PROFESSIONAL LEAD P completed ICM Interrogation, Remote (Prof) Charo Geiger MD INTERROGATION EVAL REMOTE </30 D CV MNTR SYS completed ICM Interrogation, Remote (Tech) Charo Geiger MD INTERROGATION EVAL REMOTE </30 D TECH REVIEW completed ICM Interrogation, Remote (Prof) Charo Geiger MD INTERROGATION EVAL REMOTE </30 D CV MNTR SYS completed ICM Interrogation, Remote (Tech) Saulius Kalvaitis MD INTERROGATION EVAL REMOTE </30 D TECH REVIEW completed Pacemaker Interrogation, Remote (Tech) Saulius Kalvaitis MD INTERROGATION REMOTE </90 D RADIOLOGY RN REVIEW completed Pacemaker Interrogation, Remote (Prof) Saulius Kalvaitis MD INTERROGATION EVAL REMOTE </90 D 1/2/MEDICAL DONATION PROFESSIONAL LEAD P completed ICM Interrogation, Remote (Prof) Saulius Kalvaitis MD INTERROGATION EVAL REMOTE </30 D CV MNTR SYS completed ICM Interrogation, Remote (Tech) Saulius Kalvaitis MD INTERROGATION EVAL REMOTE </30 D TECH REVIEW completed ICM Interrogation, Remote (Prof) Saulius Kalvaitis MD INTERROGATION EVAL REMOTE </30 D CV MNTR SYS completed ICM Interrogation, Remote (Tech) Saulius Kalvaitis MD INTERROGATION EVAL REMOTE </30 D TECH REVIEW completed Schedule Followup ulius Kim balderrama MD in 1 yr completed ICM Interrogation, Remote (Prof) Saulius Kalvaitis MD INTERROGATION EVAL REMOTE </30 D CV MNTR SYS completed ICM Interrogation, Remote (Tech) Saulius Kalvaitis MD INTERROGATION EVAL REMOTE </30 D TECH REVIEW completed ICM Interrogation, Remote (Prof) Saulius Kalvaitis MD INTERROGATION EVAL REMOTE </30 D CV MNTR SYS completed ICM Interrogation, Remote (Tech) Saulius Kalvaitis MD INTERROGATION EVAL REMOTE </30 D TECH REVIEW completed ICM Interrogation, Remote (Prof) Saulius Kalvaitis MD INTERROGATION EVAL REMOTE </30 D CV MNTR SYS completed ICM Interrogation, Remote (Tech) Saulius Kalvaitis MD INTERROGATION EVAL REMOTE </30 D TECH REVIEW completed ICM Interrogation, Remote (Prof) Saulius Kalvaitis MD INTERROGATION EVAL REMOTE </30 D CV MNTR SYS completed Pacemaker Interrogation, Remote (Tech) Saulius Kalvaitis MD INTERROGATION REMOTE </90 D RADIOLOGY RN REVIEW completed Pacemaker Interrogation, Remote (Prof) Saulius Kalvaitis MD INTERROGATION EVAL REMOTE </90 D 1/2/MEDICAL DONATION PROFESSIONAL LEAD P completed ICM Interrogation, Remote (Prof) Saulius Kalvaitis MD INTERROGATION EVAL REMOTE </30 D CV MNTR SYS completed ICM Interrogation, Remote (Tech) Saulius Kalvaitis MD INTERROGATION EVAL REMOTE </30 D TECH REVIEW completed ICM Interrogation, Remote (Prof) Saulius Kalvaitis MD INTERROGATION EVAL REMOTE </30 D CV MNTR SYS completed ICM Interrogation, Remote (Tech) Saulius Kalvaitis MD INTERROGATION EVAL REMOTE </30 D TECH REVIEW completed ICM Interrogation, Remote (Prof) Saulius Kalvaitis MD INTERROGATION EVAL REMOTE </30 D CV MNTR SYS completed Pacemaker Interrogation, Remote (Tech) Saulius Kalvaitis MD INTERROGATION REMOTE </90 D RADIOLOGY RN REVIEW completed Pacemaker Interrogation, Remote (Prof) Saulius Kalvaitis MD INTERROGATION EVAL REMOTE </90 D 1/2/MEDICAL DONATION PROFESSIONAL LEAD P completed ICM Interrogation, Remote (Prof) Saulius Kalvaitis MD INTERROGATION EVAL REMOTE </30 D CV MNTR SYS completed ICM Interrogation, Remote (Tech) Saulius Kalvaitis MD INTERROGATION EVAL REMOTE </30 D TECH REVIEW completed ICM Interrogation, Remote (Prof) Saulius Kalvaitis MD INTERROGATION EVAL REMOTE </30 D CV MNTR SYS completed ICM Interrogation, Remote (Tech) Saulius Kalvaitis MD INTERROGATION EVAL REMOTE </30 D TECH REVIEW completed ICM Interrogation, Remote (Prof) Saulius Kalvaitis MD INTERROGATION EVAL REMOTE </30 D CV MNTR SYS completed Pacemaker Interrogation, Remote (Tech) Saulius Kalvaitis MD INTERROGATION REMOTE </90 D RADIOLOGY RN REVIEW completed Pacemaker Interrogation, Remote (Prof) Saulius Kalvaitis MD INTERROGATION EVAL REMOTE </90 D 1/2/MEDICAL DONATION PROFESSIONAL LEAD P completed EKG Charo sabillon MD completed ICM Interrogation, Remote (Prof) Saulius Kalvaitis MD INTERROGATION EVAL REMOTE </30 D CV MNTR SYS completed ICM Interrogation, Remote (Tech) Saulius Kalvaitis MD INTERROGATION EVAL REMOTE </30 D TECH REVIEW completed ICM Interrogation, Remote (Prof) Saulius Kalvaitis MD INTERROGATION EVAL REMOTE </30 D CV MNTR SYS completed ICM Interrogation, Remote (Tech) Saulius Kalvaitis MD INTERROGATION EVAL REMOTE </30 D TECH REVIEW completed ICM Interrogation, Remote (Prof) Saulius Kalvaitis MD INTERROGATION EVAL REMOTE </30 D CV MNTR SYS completed ICM Interrogation, Remote (Tech) Saulius Kalvaitis MD INTERROGATION EVAL REMOTE </30 D TECH REVIEW completed ICM Interrogation, Remote (Prof) Saulius Kalvaitis MD INTERROGATION EVAL REMOTE </30 D CV MNTR SYS completed Pacemaker Interrogation, Remote (Tech) Saulius Kalvaitis MD INTERROGATION REMOTE </90 D RADIOLOGY RN REVIEW completed Pacemaker Interrogation, Remote (Prof) Saulius Shreyasvaitis MD INTERROGATION EVAL REMOTE </90 D 1/2/MEDICAL DONATION PROFESSIONAL LEAD P completed ICM Interrogation, Remote (Prof) Saulius Kalvaitis MD INTERROGATION EVAL REMOTE </30 D CV MNTR SYS completed ICM Interrogation, Remote (Tech) Saulius Kalvaitis MD INTERROGATION EVAL REMOTE </30 D TECH REVIEW completed ICM Interrogation, Remote (Prof) Saulius Kalvaitis MD INTERROGATION EVAL REMOTE </30 D CV MNTR SYS completed ICM Interrogation, Remote (Tech) Saulius Kalvaitis MD INTERROGATION EVAL REMOTE </30 D TECH REVIEW completed ICM Interrogation, Remote (Prof) Saulius Kalvaitis MD INTERROGATION EVAL REMOTE </30 D CV MNTR SYS completed ICM Interrogation, Remote (Tech) Saulius Geiger MD INTERROGATION EVAL REMOTE </30 D TECH REVIEW completed ICM Interrogation, Remote (Prof) Saulius Sandroitis MD INTERROGATION EVAL REMOTE </30 D CV MNTR SYS completed ICM Interrogation, Remote (Tech) Saulius Joitis MD INTERROGATION EVAL REMOTE </30 D TECH REVIEW completed ICM Interrogation, Remote (Prof) Saulius Sandroitis MD INTERROGATION EVAL REMOTE </30 D CV MNTR SYS completed Pacemaker Interrogation, Remote (Tech) Saulius Sandroitis INTERROGATION REMOTE </90 D RADIOLOGY RN REVIEW completed Pacemaker Interrogation, Remote (Prof) Saulius Juanjo OCONNELL INTERROGATION EVAL REMOTE </90 D 1/2/MEDICAL DONATION PROFESSIONAL LEAD P completed ICM Interrogation, Remote (Prof) Sacrystal Geiger MD INTERROGATION EVAL REMOTE </30 D CV MNTR SYS completed ICM Interrogation, Remote (Tech) Charo Geiger MD INTERROGATION EVAL REMOTE </30 D TECH REVIEW completed EKG Charo sabillon MD completed SNOMED-CT: [id number] Current Medications Documented Charo Geiger MD completed ICM Interrogation, Remote (Prof) Charo Geiger MD INTERROGATION EVAL REMOTE </30 D CV MNTR SYS completed ICM Interrogation, Remote (Tech) Charo Geiger MD INTERROGATION EVAL REMOTE </30 D TECH REVIEW completed ICM Interrogation, Remote (Prof) ulius Juanjo OCONNELL INTERROGATION EVAL REMOTE </30 D CV MNTR SYS completed Pacemaker Interrogation, Remote (Tech) Charo Geiger MD INTERROGATION REMOTE </90 D RADIOLOGY RN REVIEW completed Pacemaker Interrogation, Remote (Prof) Charo Geiger MD INTERROGATION EVAL REMOTE </90 D 1/2/MEDICAL DONATION PROFESSIONAL LEAD P completed ICM Interrogation, Remote (Prof) Saulius Kalvaitis MD INTERROGATION EVAL REMOTE </30 D CV MNTR SYS completed ICM Interrogation, Remote (Tech) Saulius Kalvaitis MD INTERROGATION EVAL REMOTE </30 D TECH REVIEW completed ICM Interrogation, Remote (Prof) Saulius Kalvaitis MD INTERROGATION EVAL REMOTE </30 D CV MNTR SYS completed ICM Interrogation, Remote (Tech) Saulius Kalvaitis MD INTERROGATION EVAL REMOTE </30 D TECH REVIEW completed ICM Interrogation, Remote (Prof) Saulius Kalvaitis MD INTERROGATION EVAL REMOTE </30 D CV MNTR SYS completed Pacemaker Interrogation, Remote (Tech) Saulius Kalvaitis MD INTERROGATION REMOTE </90 D RADIOLOGY RN REVIEW completed Pacemaker Interrogation, Remote (Prof) Saulius Kalvaitis MD INTERROGATION EVAL REMOTE </90 D 1/2/MEDICAL DONATION PROFESSIONAL LEAD P completed ICM Interrogation, Remote (Prof) Saulius Kalvaitis MD INTERROGATION EVAL REMOTE </30 D CV MNTR SYS completed ICM Interrogation, Remote (Tech) Saulius Kalvaitis MD INTERROGATION EVAL REMOTE </30 D TECH REVIEW completed ICM Interrogation, Remote (Prof) Saulius Kalvaitis MD INTERROGATION EVAL REMOTE </30 D CV MNTR SYS completed ICM Interrogation, Remote (Tech) Saulius Kalvaitis MD INTERROGATION EVAL REMOTE </30 D TECH REVIEW completed ICM Interrogation, Remote (Prof) Saulius Kalvaitis MD INTERROGATION EVAL REMOTE </30 D CV MNTR SYS completed Pacemaker Interrogation, Remote (Tech) Saulius Kalvaitis MD INTERROGATION REMOTE </90 D RADIOLOGY RN REVIEW completed Pacemaker Interrogation, Remote (Prof) Saulius Kalvaitis MD INTERROGATION EVAL REMOTE </90 D 1/2/MEDICAL DONATION PROFESSIONAL LEAD P completed ICM Interrogation, Remote (Prof) Saulius Kalvaitis MD INTERROGATION EVAL REMOTE </30 D CV MNTR SYS completed ICM Interrogation, Remote (Tech) Charo Geiger MD INTERROGATION EVAL REMOTE </30 D TECH REVIEW completed ICM Interrogation, Remote (Prof) Charo Geiger MD INTERROGATION EVAL REMOTE </30 D CV MNTR SYS completed ICM Interrogation, Remote (Tech) Charo Geiger MD INTERROGATION EVAL REMOTE </30 D TECH REVIEW completed ICM Interrogation, Remote (Prof) Charo Geiger MD INTERROGATION EVAL REMOTE </30 D CV MNTR SYS completed Pacemaker Interrogation, Remote (Tech) Charo Geiger MD INTERROGATION REMOTE </90 D RADIOLOGY RN REVIEW completed Pacemaker Interrogation, Remote (Prof) Charo Geiger MD INTERROGATION EVAL REMOTE </90 D 1/2/MEDICAL DONATION PROFESSIONAL LEAD P completed Schedule Followup Charo balderrama MD 1 year completed SNOMED-CT: [id number] Smoking Cessation Counseling Charo Geiger MD completed EKG Charo sabillon MD completed SNOMED-CT: [id number] Current Medications Documented Charo Geiger MD completed ICM Interrogation, Remote (Prof) Charo Geiger MD INTERROGATION EVAL REMOTE </30 D CV MNTR SYS completed ICM Interrogation, Remote (Tech) Charo Geiger MD INTERROGATION EVAL REMOTE </30 D TECH REVIEW completed ICM Interrogation, Remote (Prof) Charo Geiger MD INTERROGATION EVAL REMOTE </30 D CV MNTR SYS completed ICM Interrogation, Remote (Tech) Charo Geiger MD INTERROGATION EVAL REMOTE </30 D TECH REVIEW completed ICM Interrogation, Remote (Prof) Charo Geiger MD INTERROGATION EVAL REMOTE </30 D CV MNTR SYS completed Pacemaker Interrogation, Remote (Tech) Charo Geiger MD INTERROGATION REMOTE </90 D RADIOLOGY RN REVIEW completed Pacemaker Interrogation, Remote (Prof) Saulius Kalvaitis MD INTERROGATION EVAL REMOTE </90 D 1/2/MEDICAL DONATION PROFESSIONAL LEAD P completed ICM Interrogation, Remote (Prof) Saulius Kalvaitis MD INTERROGATION EVAL REMOTE </30 D CV MNTR SYS completed ICM Interrogation, Remote (Tech) Saulius Kalvaitis MD INTERROGATION EVAL REMOTE </30 D TECH REVIEW completed ICM Interrogation, Remote (Prof) Saulius Kalvaitis MD INTERROGATION EVAL REMOTE </30 D CV MNTR SYS completed ICM Interrogation, Remote (Tech) Saulius Kalvaitis MD INTERROGATION EVAL REMOTE </30 D TECH REVIEW completed ICM Interrogation, Remote (Prof) Saulius Kalvaitis MD INTERROGATION EVAL REMOTE </30 D CV MNTR SYS completed Pacemaker Interrogation, Remote (Tech) Saulius Kalvaitis MD INTERROGATION REMOTE </90 D RADIOLOGY RN REVIEW completed Pacemaker Interrogation, Remote (Prof) Saulius Kalvaitis MD INTERROGATION EVAL REMOTE </90 D 1/2/MEDICAL DONATION PROFESSIONAL LEAD P completed ICM Interrogation, Remote (Prof) Saulius Kalvaitis MD INTERROGATION EVAL REMOTE </30 D CV MNTR SYS completed ICM Interrogation, Remote (Tech) Saulius Kalvaitis MD INTERROGATION EVAL REMOTE </30 D TECH REVIEW completed ICM Interrogation, Remote (Prof) Saulius Kalvaitis MD INTERROGATION EVAL REMOTE </30 D CV MNTR SYS completed ICM Interrogation, Remote (Tech) Saulius Kalvaitis MD INTERROGATION EVAL REMOTE </30 D TECH REVIEW completed ICM Interrogation, Remote (Prof) Saulius Kalvaitis MD INTERROGATION EVAL REMOTE </30 D CV MNTR SYS completed ICM Interrogation, Remote (Tech) Saulius Kalvaitis MD INTERROGATION EVAL REMOTE </30 D TECH REVIEW completed ICM Interrogation, Remote (Prof) Saulius Kalvaitis MD INTERROGATION EVAL REMOTE </30 D CV MNTR SYS completed Pacemaker Interrogation, Remote (Tech) Charo Geiger MD INTERROGATION REMOTE </90 D RADIOLOGY RN REVIEW completed Pacemaker Interrogation, Remote (Prof) Saulius Geiger MD INTERROGATION EVAL REMOTE </90 D 1/2/MEDICAL DONATION PROFESSIONAL LEAD P completed ICM Interrogation, Remote (Prof) Charo Geiger MD INTERROGATION EVAL REMOTE </30 D CV MNTR SYS completed ICM Interrogation, Remote (Tech) Charo Geiger MD INTERROGATION EVAL REMOTE </30 D TECH REVIEW completed Schedule Followup Charo balderrama MD fu with SK in 1 year completed EKG Charo sabillon MD completed ICM Interrogation, Remote (Prof) Charo Geiger MD INTERROGATION EVAL REMOTE </30 D CV MNTR SYS completed ICM Interrogation, Remote (Tech) Charo Geiger MD INTERROGATION EVAL REMOTE </30 D TECH REVIEW completed ICM Interrogation, Remote (Prof) Charo Geiger MD INTERROGATION EVAL REMOTE </30 D CV MNTR SYS completed Pacemaker Interrogation, Remote (Tech) Charo Geiger MD INTERROGATION REMOTE </90 D RADIOLOGY RN REVIEW completed Pacemaker Interrogation, Remote (Prof) Charo eGiger MD INTERROGATION EVAL REMOTE </90 D 1/2/MEDICAL DONATION PROFESSIONAL LEAD P completed ICM Interrogation, Remote (Prof) Saulius Geiger MD INTERROGATION EVAL REMOTE </30 D CV MNTR SYS completed ICM Interrogation, Remote (Tech) ulius Juanjo OCONNELL INTERROGATION EVAL REMOTE </30 D TECH REVIEW completed ICM Interrogation, Remote (Prof) Saulius Shreyasvaitis MD INTERROGATION EVAL REMOTE </30 D CV MNTR SYS completed ICM Interrogation, Remote (Tech) Charo Geiger MD INTERROGATION EVAL REMOTE </30 D TECH REVIEW completed ICM Interrogation, Remote (Prof) Saulius Juanjo OCONNELL INTERROGATION EVAL REMOTE </30 D CV MNTR SYS completed Pacemaker Interrogation, Remote (Tech) Saulius Joitis MD INTERROGATION REMOTE </90 D RADIOLOGY RN REVIEW completed Pacemaker Interrogation, Remote (Prof) Saulius Juanjo MD INTERROGATION EVAL REMOTE </90 D 1/2/MEDICAL DONATION PROFESSIONAL LEAD P completed ICM Interrogation, Remote (Prof) Saulius Juanjo MD INTERROGATION EVAL REMOTE </30 D CV MNTR SYS completed ICM Interrogation, Remote (Tech) Saulius Juanjo OCONNELL INTERROGATION EVAL REMOTE </30 D TECH REVIEW completed Schedule Followup Charo balderrama MD in 6 months with [facility] completed EKG Charo sabillon MD completed ICM Interrogation, Remote (Prof) Charo Geiger MD INTERROGATION EVAL REMOTE </30 D CV MNTR SYS completed ICM Interrogation, Remote (Tech) Sacrystal Geiger MD INTERROGATION EVAL REMOTE </30 D TECH REVIEW completed ICM Interrogation, Remote (Prof) Sacrystal Geiger MD INTERROGATION EVAL REMOTE </30 D CV MNTR SYS completed Pacemaker Interrogation, Remote (Tech) Sacrystal Geiger MD INTERROGATION REMOTE </90 D RADIOLOGY RN REVIEW completed Pacemaker Interrogation, Remote (Prof) Sacrystal Geiger MD INTERROGATION EVAL REMOTE </90 D 1/2/MEDICAL DONATION PROFESSIONAL LEAD P completed ICM Interrogation, Remote (Prof) Saulius Juanjo OCONNELL INTERROGATION EVAL REMOTE </30 D CV MNTR SYS completed ICM Interrogation, Remote (Tech) Saulius Kalvaitis MD INTERROGATION EVAL REMOTE </30 D TECH REVIEW completed ICM Interrogation, Remote (Prof) Saulius Juanjo OCONNELL INTERROGATION EVAL REMOTE </30 D CV MNTR SYS completed ICM Interrogation, Remote (Tech) Saulius Geiger MD INTERROGATION EVAL REMOTE </30 D TECH REVIEW completed Schedule Followup Charo balderrama MD fu with [facility] in 6 months completed EKG Charo sabillon MD completed EKG 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
[2024-12-14 10:17] VITALS: BP 142/88; PULSE 70; RESP 18; TEMP 35.8; O2SAT 99
[2024-12-14] MEDS: LACTATED RINGERS 1,000 ML 150 ML IV CONT (10:28)
--- NOTE | 2024-12-14 10:54 | WPDANESEPPF ---
Anes - Initial Pre Proc Eval Procedure: Operation Date: 12/14/24 11:00 Proposed Procedures p Esophagogastroduodenoscopy - Niraj Garza MD Date/Time: 12/14/24 10:54 Surgeon: Niraj Garza MD Pre Op Diagnosis: Esophageal obstruction Patient Data Age: 79 Gender: M Height: 1.83 m Weight: 85.1 kg Last Vital Signs Temp 35.8 C L 12/14/24 10:17 Pulse 70 12/14/24 10:17 Resp 18 12/14/24 10:17 BP 142/88 H 12/14/24 10:17 Pulse Ox 99 12/14/24 10:17 O2 Del Method Room Air 12/14/24 10:17 Allergies Allergy/AdvReac Type Severity Reaction Status Date / Time No Known Allergies Allergy Verified 12/14/24 10:14 Home Medications ?Medication ?Instructions ?Recorded ?Confirmed ?Type aspirin 81 mg tablet,delayed 81 mg PO DAILY 09/21/24 12/14/24 History release (Adult Low Dose Aspirin) atorvastatin 40 mg tablet (Lipitor) 40 mg PO DAILY 09/21/24 12/14/24 History finasteride 5 mg-tadalafil 5 mg 1 cap PO DAILY 09/21/24 12/14/24 History capsule hydrocodone bitartrate 10 mg 10 mg PO Q12H 09/21/24 12/14/24 History capsule, oral only, extended rel 12 hr lansoprazole 30 mg capsule,delayed 30 mg PO DAILY #30 caps 09/21/24 12/14/24 Rx release multivitamin 1 tablet PO DAILY 09/21/24 12/14/24 History pantoprazole 40 mg tablet,delayed 40 mg PO QAM 09/21/24 12/14/24 History release sotalol 80 mg tablet 80 mg PO DAILY 09/21/24 12/14/24 History tamsulosin 0.4 mg capsule 0.4 mg PO BID 09/21/24 12/14/24 History trazodone 100 mg tablet 100 mg PO QHS PRN sleep 09/21/24 12/14/24 History Patient hx anesthesia problems: none Family hx anesthesia problems: none Results Review: All pre-operative results and documents have been reviewed as part of the pre-operative evaluation. [facility] Past Medical History Medical History Chronic pain History of kidney stones Polyneuropathy Anxiety CKD (chronic kidney disease) HLD (hyperlipidemia) Hypertension Pacemaker Sick sinus syndrome BPH (benign prostatic hyperplasia) Family History Family History Father Pancreas cancer Hypertension Heart disease Mother Stomach cancer Social History Social History Smoking status: Never smoker Substance use type: does not use Living arrangements: with family Additional living arrangements comments: with so [place] - [place] Final PreProcedure Day of Procedure 12/14/24 10:54 Patient weight: normal Heart: regular rate and rhythm Lungs: clear to auscultation Airway: Mallampati scale class II Neurological: alert and oriented Last oral intake: >/= 8 hours ASA classification: III Emergent: no Anesthetic plan: proceed Anesthesia type and monitoring: general GIVS and standard monitoring Results Review: All pre-operative results and documents have been reviewed as part of the pre-operative evaluation. Informed Consent: The patient's anesthetic plan and its attendant risks and benefits were discussed with the patient/family/POA. Questions were solicited and answers provided to the satisfaction of the patient/family/POA.
--- NOTE | 2024-12-14 11:03 | PM.HPGS ---
History of Present Illness History of Present Illness Consent: Risks, benefits, and alternatives have been discussed and questions answered. Patient agrees to proceed with procedure. Chief complaint: Esophageal obstruction Narrative: Domingo Morales is a 79 year old male with intermittent dysphagia, he had esophageal dilation previously but only helped for short period of time Review of Systems Review of Systems: All systems reviewed & are unremarkable except as noted in HPI and below PMFSH Past Medical History Medical History (Updated 12/14/24 @ 11:05 by Niraj Garza MD) Dysphagia Chronic pain History of kidney stones Polyneuropathy Anxiety CKD (chronic kidney disease) HLD (hyperlipidemia) Hypertension Pacemaker Sick sinus syndrome BPH (benign prostatic hyperplasia) Family History Family History Father Pancreas cancer Hypertension Heart disease Mother Stomach cancer Social History Social History Smoking status: Never smoker Substance use type: does not use Living arrangements: with family Additional living arrangements comments: with so Meds Home Medications and Allergies Home Medications ?Medication ?Instructions ?Recorded ?Confirmed ?Type aspirin 81 mg tablet,delayed 81 mg PO DAILY 09/21/24 12/14/24 History release (Adult Low Dose Aspirin) atorvastatin 40 mg tablet (Lipitor) 40 mg PO DAILY 09/21/24 12/14/24 History finasteride 5 mg-tadalafil 5 mg 1 cap PO DAILY 09/21/24 12/14/24 History capsule hydrocodone bitartrate 10 mg 10 mg PO Q12H 09/21/24 12/14/24 History capsule, oral only, extended rel 12 hr lansoprazole 30 mg capsule,delayed 30 mg PO DAILY #30 caps 09/21/24 12/14/24 Rx release multivitamin 1 tablet PO DAILY 09/21/24 12/14/24 History pantoprazole 40 mg tablet,delayed 40 mg PO QAM 09/21/24 12/14/24 History release sotalol 80 mg tablet 80 mg PO DAILY 09/21/24 12/14/24 History tamsulosin 0.4 mg capsule 0.4 mg PO BID 09/21/24 12/14/24 History trazodone 100 mg tablet 100 mg PO QHS PRN sleep 09/21/24 12/14/24 History Allergies Allergy/AdvReac Type Severity Reaction Status Date / Time No Known Allergies Allergy Verified 12/14/24 10:14 Vital Signs Vital Signs - 24 hr 12/14/24 10:17 Temperature 96.4 F L Pulse Rate 70 Respiratory Rate 18 Blood Pressure 142/88 H Pulse Oximetry 99 Oxygen Delivery Room Air Exam Const: General: comfortable and no acute distress HENMT: Face/Nose/Sinus: Normal nares present Eyes: General: appearance normal, both eyes and all related structures Neck: Neck: no JVD Resp: Auscultation: clear to auscultation bilaterally Cardio: Rate: regular rate Rhythm: regular rhythm GI: Inspection: non-distended GI Palp: Yes Soft to palpation Skin: General skin exam: normal color Neuro: Speech: normal speech Extrem: General: normal to inspection Psych: Mental Status: mental status grossly normal Assessment and Plan Assessment and plan (1) Dysphagia: Code(s): R13.10 - Dysphagia, unspecified Status: Acute Assessment and Plan: egd, will assess if needs dilation (2) History of esophageal stricture: Code(s): Z87.19 - Personal history of other diseases of the digestive system Status: Acute
[2024-12-14 11:19] VITALS: BP 143/82; PULSE 70; RESP 18; O2SAT 98
[2024-12-14 11:29] VITALS: BP 148/88; PULSE 70; RESP 18; O2SAT 99
[2024-12-14 11:37] VITALS: BP 150/88; PULSE 70; RESP 13; O2SAT 99
== END 2024-12-14 12:00 | disposition home or self-care (01) ==
PROVIDERS: Visit Provider Internal Medicine Gastroenterology
PROC: 0DJ08ZZ Inspection of Upper Intestinal Tract, Via Natural or Artificial Opening Endoscopic (ICD-10-PCS; CPT 43249; principal; 2024-12-14 11:00)
DX: K22.2 Esophageal obstruction (principal); K44.9 Diaphragmatic hernia without obstruction or gangrene; E78.5 Hyperlipidemia, unspecified; I12.9 Hypertensive chronic kidney disease with stage 1 through stage 4 chronic kidney disease, or unspecified chronic kidney disease; N18.9 Chronic kidney disease, unspecified; N40.0 Benign prostatic hyperplasia without lower urinary tract symptoms; F41.9 Anxiety disorder, unspecified; I49.5 Sick sinus syndrome; G62.9 Polyneuropathy, unspecified; G89.29 Other chronic pain; Z79.82 Long term (current) use of aspirin; Z79.891 Long term (current) use of opiate analgesic; Z98.890 Other specified postprocedural states; Z95.0 Presence of cardiac pacemaker; Z87.442 Personal history of urinary calculi; Z87.19 Personal history of other diseases of the digestive system; Z80.0 Family history of malignant neoplasm of digestive organs; Z82.49 Family history of ischemic heart disease and other diseases of the circulatory system
CPT/HCPCS: 43249; 88305; C1726; J2704; J7120

== ENCOUNTER 2025-01-21 09:54 | Outpatient (CLI) | payer MEDICARE, SELFPAY ==
--- NOTE | ~2025-01-21 | XR_ITS ---
EXAMINATION: XR UGIAC wo kub DATE: 01/21/2025 10:39 INDICATION: Esophageal dysphagia. Small hiatal hernia. TECHNIQUE: The patient drank thick barium, gas-producing crystals, and thin barium. A total of 692 fl uoroscopic images of the esophagus, stomach, and proximal small bowel were obtained. Fluoroscopy expo sure time was 2.1 minutes. Total DAP was 10.814 Gycm^2. COMPARISON: None. FINDINGS: The esophagus is normal without mass or stricture. Esophageal motility is within normal perry its for age with a few tertiary contractions in the distal third of the esophagus. There is no hiatal hernia. There was no gastroesophageal reflux with provocative maneuvers. The stomach and proximal sm all bowel are normal. Couple large calcified pulmonary nodules are seen at the medial right lung base . IMPRESSION: 1. Esophageal motility within normal limits for age with a few tertiary contractions in the distal th ird of the esophagus. No hiatal hernia or reflux. Reviewed, dictated and finalized at location A. IMPRESSION: 1. Esophageal motility within normal limits for age with a few tertiary contrac tions in the distal third of the esophagus. No hiatal hernia or reflux.
--- OUTSIDE RECORDS SUMMARY | 2025-01-21 09:59 | XMS_ITS | Patient Health Record ---
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 Problem [id number] 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 confirmed Problem [id number] Skin ulcer of left heel with fat layer exposed (L97.422) Active confirmed Vital Signs Height 72 in 04/09/2024 Weight 184 lbs 04/09/2024 BMI 24.95 kg/m2 04/09/2024 Encounters Encounter Location Date Provider Diagnosis 1 [facility] [address] [facility] [address] [place] [address] 03/26/2024 Gianfranco Lemon 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 ; Pain in joint, foot, left M25.572 and Abscess of left foot L02.612 1 OF [facility] [address] [place] [address] [place] [id number] 04/01/2024 Ramsesvandana Ion 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 ; Skin ulcer of left heel with fat layer exposed L97.422 and Staph infection B95.8 1 OF [facility] [place] [address] [place] [address] [place] [address] 04/09/2024 Gianfranco Lemon 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 ; Skin ulcer of left heel with fat layer exposed L97.422 and Staph infection B95.8 1 OF [facility] [address] [place] [address] [place] [address] 03/30/2024 Gianfranco Lemon 1 OF [place] [address] [address] 03/30/2024 Gianfranco Lemon Assessments Encounter Date Diagnosis [...] Coverage End Date Medicare [address] [facility] [place], [place] [id number] Domingo Morales Self - patient is the insured [facility] and [facility] [address] [place] [address] [id number] 1 Domingo Morales Self - patient is the insured Medical (General) History Medical History History ICD Code neuropathy of feet, arthriti s of thumb joints, Degenerative disc disease, sick sinus syndrome (w/ pacemaker) Surgical History Surgery Date(Month/Year) pacemaker placement
--- OUTSIDE RECORDS SUMMARY | 2025-01-21 09:59 | XMS_ITS | Encounter Summary ---
Author Organization [facility] Address [address] [place] [address] Care Team Providers Care Methods Specialist Name Role Phone Vashti Garay FINISH FILER Primary Care Provider [phone] Encounter Details Date Type Department Care Team (Late st Contact Info) Description 12/30/2024 Results Follow-Up [facility] Family Medicine at [address] [place] [address] Vashti Garay, OSCAR [address] [place] [address] [address] [place] [address] XR Spine Lumbar 6 or More Views Social History Tobacco Use Types Packs/Day Years Used Date Smoking Tobacco: Former Cigarettes Alcohol Use Standard Drinks/Week Comments Never 0 (1 standard drink = 0.6 oz pur e alcohol) AUDIT-C Answer Date Recorded Q1: How often do you have a drink containing alcohol? Never 12/22/2024 Q2: How many drinks containi ng alcohol do you have on a typical day when you are drinking? Patient does not drink Q3: How often do you have si x or more drinks on one occasion? 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
--- OUTSIDE RECORDS SUMMARY | 2025-01-21 09:59 | XMS_ITS | Clinical Summary ---
Author Organization [facility] Building Address [address] [place] [id number] Care Team Providers Care Emergency Management Director Name Role Phone Tanisha Vashti MOORE Primary Care Provider [phone] Allergies No known active allergies Medications MULTIVITAMIN [...] (81 mg total) by mouth daily Active finasteride (PROSCAR) 5 mg tablet Take [...] day 120 capsule 1 11/06/[address] (PROTONIX) 40 mg EC tablet Take 1 tablet (40 mg total) by mouth daily 90 tablet 3 11/25/19 25 Active tamsulosin (FLOMAX) 0.4 mg extended release capsuleIndicati ons:Benign prostatic hyperplasia with urinary retention TAKE 1 CAPSULE BY MOUTH 2 TIMES A DAY. 200 capsule 1 12/22/19 25 Active lansoprazole (PREVACID) 30 mg capsule Take 1 capsule (30 mg total) by mouth daily Active oxyCODONE ER (OxyCONTIN) 10 mg 12 hr abuse-deterrent tablet Take 1 tablet (10 mg total) by mouth 2 (two) times a day 60 tablet 01/20/20 25 Active oxyCODONE 10 mg tablet, oral only Take 10 mg by mouth every 8 (eight) hours as needed (pain) 30 tablet 01/20/20 25 Active HYDROcodone-kwame taminophen (NORCO) 10-325 mg per tabletIndicatio ns:Pain Take 1 tablet by mouth every 6 (six) hours as needed for pain 30 tablet 01/21/20 25 Active HYDROcodone-kwame taminophen (NORCO) 10-325 mg per tabletIndicatio ns:Pain Take 1 tablet by mouth every 4 (four) hours as needed for pain 180 tablet 12/22/19 25 025 Discontin ued(Reord er) HYDROcodone-kwame taminophen (NORCO) 10-325 mg per tabletIndicatio ns:Pain Take 1 tablet by mouth every 6 (six) hours as needed for pain 180 tablet 01/20/20 25 025 Discontin ued(Thera py completed ) Active Problems Problem Noted Date Diagnosed Date [...] 01/21/2020 Assessment & Plan (07/29/2023 3:39 PM FOOD COUNTER ATTENDANT): This is a stable chronic condition. Monitor [...] routine Assessment & Plan (09/30/2022 4:18 PM FOOD COUNTER ATTENDANT): Images from the original note were not [...] consider Assessment & Plan (07/29/2023 3:39 PM FOOD COUNTER ATTENDANT): This is diet controlled Assessment & Plan (03/19/2023 9:34 AM CDT): Currently controlled with diet will continue to follow Assessment & Plan (02/05/2023 2:05 PM CDT): Diet controlled Assessment & Plan (11/14/2022 9:20 AM CDT): controlled Assessment & Plan (09/30/2022 4:18 PM FOOD COUNTER ATTENDANT): Diet controlled Assessment & Plan (05/15/2022 11:44 AM CDT): Controlled with diet Assessment & Plan (04/09/2022 4:32 PM CDT): Diet and fiber Assessment & Plan (11/07/2021 1:51 PM FOOD COUNTER ATTENDANT): Diet controlled Assessment & Plan (04/18/2020 9:57 AM CDT): This is currently controlled with diet will continue to follow BMI 26.0-26.9,adult 06/11/2018 Assessment & Plan (10/19/2020 9:59 AM FOOD COUNTER ATTENDANT): Healthy diet Benign prostatic hyperplasia 03/30/2018 Assessment & Plan (04/09/2022 4:32 PM CDT): Well controlled Assessment & Plan (04/24/2021 10:03 AM CDT): Stable and continue meds Assessment & Plan (10/19/2020 9:58 AM FOOD COUNTER ATTENDANT): Controlled with meds Assessment & Plan (04/18/2020 [...] 03/30/2018 Assessment & Plan (07/29/2023 3:39 PM FOOD COUNTER ATTENDANT): Patient is to continue present medications, work [...] routine. Assessment & Plan (09/30/2022 4:18 PM FOOD COUNTER ATTENDANT): Patient is to continue present medications, work [...] routine. Assessment & Plan (10/19/2020 9:58 AM FOOD COUNTER ATTENDANT): Patient is to continue present medications, work [...] cardiology Assessment & Plan (11/07/2021 1:51 PM FOOD COUNTER ATTENDANT): Seeing cardiology Assessment & Plan (04/24/2021 10:04 AM CDT): Cardiology following Assessment & Plan (10/19/2020 9:58 AM FOOD COUNTER ATTENDANT): Seeing cardiology and doing well Assessment & Plan (04/18/2020 9:58 AM CDT): Patient is asymptomatic and followed by cardiology and on a baby aspirin Assessment & Plan (12/27/2019 10:32 AM CDT): Has pacemaker, seeing Cardiology 20 january Assessment & Plan (12/13/2019 10:20 AM CDT): Patient has a pacemaker and he is asymptomatic in clinic today I have a message out to his locomotive electrician and I am faxing over the EKG [...] 11/14/2017 Assessment & Plan (07/29/2023 3:40 PM FOOD COUNTER ATTENDANT): Patient is very legitimate and has had a really hard time with this and I see no reason to even try to taper as is the only thing that gives him relief. My collaborating partner is moving away from terminal clerk pain management therefore I also have to do the same I offered patient to go see a pain management specialists he was not happy about this he asked if there was someone else I told him about my previous partner at [facility] Dr. Joe Roe I let him [...] ordered Assessment & Plan (09/30/2022 4:19 PM FOOD COUNTER ATTENDANT): This is chronic, exhausted everything Patient and [...] neurology Assessment & Plan (11/07/2021 1:51 PM FOOD COUNTER ATTENDANT): Chronic ongoing Assessment & Plan (12/28/2020 3:31 [...] 10/13/2015 Assessment & Plan (11/07/2021 1:51 PM FOOD COUNTER ATTENDANT): Patient is to continue present medications, work [...] 11/24/2024 Assessment & Plan (10/19/2020 10:05 AM FOOD COUNTER ATTENDANT): Currently not an issue, if this becomes [...] neuropathy Assessment & Plan (10/19/2020 9:58 AM FOOD COUNTER ATTENDANT): Taking as needed medical marijuna, not daily, [...] depression Assessment & Plan (10/19/2020 9:58 AM FOOD COUNTER ATTENDANT): No depression Assessment & Plan (04/18/2020 9:57 [...] Dorsalgia, unspecified 03/30/201804/13 Other chronic pain 03/30/2018 Overview (10/18/2019): DDD Assessment & Plan (09/30/2022 4:19 PM FOOD COUNTER ATTENDANT): Patient and I had a discussion about [...] meds Assessment & Plan (11/07/2021 1:50 PM FOOD COUNTER ATTENDANT): This is chronic, he failed PY, did [...] and wished to continue current treatment. Other residential (current) drug therapy 11/01/2016 11/24/2024 Chest pain 03/11/2014 11/24/2024 Dizziness 04/30/2013 11/24/2024 Fatigue 04/30/2013 11/24/2024 Encounters Date Type Department Care Team Description 01/19/2025 Orders Only [facility] Family Medicine at [address] [place] [address] Vashti Garay NP Other chronic pain 12/30/2024 Results Follow-Up [facility] Family Medicine at [address] [place] [address] Vashti Garay NP Vitamin B12, Folate, CBC with auto differential, Additional followed-up results: 2 12/30/2024 Results Follow-Up [facility] Family Medicine at [address] [place] [address] Vashti Garay NP XR Spine Lumbar 6 or More Views 12/28/2024 10:45 AM CDT Lab [facility] Office Bldg [address] Lab [address] [place] [address] [address] [place] [address] Other polyneuropathy; Nutritional anemia, unspecified 12/28/2024 10:23 AM CDT - 12/28/2024 11:59 PM CDT Hospital Encounter [facility] Di[facility] Imaging [address] [place] [address] Other polyneuropathy; Nutritional anemia, unspecified; Lumbar radiculopathy Discharge Disposition: Discharge to home or self care 12/22/2024 11:30 AM CDT Office Visit [facility] Medical [facility] Family Medicine at [address] [phone] Vashti Garay NP Other polyneuropathy (Primary Dx); Nutritional anemia, unspecified; Lumbar radiculopathy; 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 pain 12/17/2024 Results Follow-Up [facility] Medicine at [address] [address] Vashti Garay NP GI - RESULT 12/14/2024 Orders Only [facility] [address] [place] [phone] Vashti Garay NP 11/25/2024 10:05 AM CDT Lab [facility] Medical Office Bldg [address] OP Lab [address] [place] [address] Other polyneuropathy 11/25/2024 Results Follow-Up [facility] at [address] [address] Vashti Garay NP Drugs of Abuse Screen, Urine with Reflex Confirmation 11/24/2024 10:00 AM CDT Office Visit [facility] Family [facility] at [address] [address] Vashti Garay NP Healthcare maintenance (Primary Dx); Need for hepatitis B screening test; Other polyneuropathy; Sick sinus syndrome (CMS/HCC) (HCC); Gastroesophageal reflux disease, unspecified whether esophagitis present; Tinnitus of both ears; Stage 3b chronic kidney disease (HCC) 11/05/2024 9:45 AM FOOD COUNTER ATTENDANT Lab [facility] OP Lab [address] [place] [address] Impaired fasting glucose; Primary hypertension; Mixed hyperlipidemia; Stage 3a chronic kidney disease (HCC) 11/05/2024 9:30 AM FOOD COUNTER ATTENDANT Office Visit [facility] Family Medicine [address] [phone] Joe Roe MD Primary hypertension (Primary Dx); Mixed hyperlipidemia; Sick sinus syndrome (HCC); Pacemaker; Impaired fasting glucose; Stage 3a chronic kidney disease (HCC); Numbness of feet; Bilateral foot pain; Poor balance; Other polyneuropathy; Other chronic pain; Benign prostatic hyperplasia with weak urinary stream; Irritable bowel syndrome, unspecified type; Gastroesophageal reflux disease without esophagitis; Insomnia, unspecified type from Last 3 Months Immunizations Immunization Administration [...] on file Legal Sex Male 6:39 AM FOOD COUNTER ATTENDANT Gender Identity Male 10/22/2021 9:05 AM FOOD COUNTER ATTENDANT Sexual Orientation Not on file Obstetrics History Last Filed Vital Signs Vital Sign Reading Time Taken Comments Blood Pressure 122/80 12/22/2024 11:43 AM CDT Pulse 70 12/22/2024 11:43 AM CDT Temperature 36.2 C (97.2 F) 12/22/2024 11:43 AM CDT Respiratory Rate 18 12/22/2024 11:43 AM CDT Oxygen Saturation 97% 12/22/2024 11:43 AM CDT Inhaled Oxygen Concentration - - Weight 81.4 kg (179 lb 6.4 oz) 12/22/2024 11:43 AM CDT Height 182.9 cm (6') 12/22/2024 11:43 AM CDT Body Mass Index 24.33 12/22/2024 11:43 AM CDT Plan of Treatment Health Maintenance Due Date Last Done Comments Hepatitis B Screening 1963 Depression Screening 06/16/2025 06/16/2024, 06/16/2024, 09/26/2023, Additional history exists Fall Risk Assessment 06/16/2025 06/16/2024, 06/16/2023, 05/15/2022, Additional history exists Well Visit 65+ 06/16/2025 06/16/2024, 06/01, 06/16/2023, Additional history exists Covid-19 Vaccine () 12/22/2025 04/30/2024, 05/22/2023, 05/10/2022, Additional history exists Postponed from 10/29/2024 (Patient declined, but will receive in the future) DTaP/Tdap/Td Vaccine (2 - Td or Tdap) 09/26/2033 09/26/2023 Hepatitis C Screening Completed 10/18/2019 Pneumococcal vaccine 65+ Completed 020, 01/09/2017, 07/25/2015 Abdominal Aortic Aneurysm (AAA) Screen Completed 10/26/2019 Colon Cancer Screening-CT Colonography Discontinued 10/27/2020 Colon Cancer Screening-Colonoscopy Discontinued 10/27/2020 Colon Cancer Screening-DNA Stool Discontinued 10/27/2020 Colon Cancer Screening-FIT Discontinued 10/27/2020 Colon Cancer Screening-FOBT Discontinued 10/27/2020 Colon Cancer Screening-Sigmoidoscopy Discontinued 10/27/2020 Colorectal Cancer Screening Discontinued Zoster Vaccine Completed 04/30/2024, 09/27/2023 Influenza Vaccine Completed 05/24/2024, , 05/22/2023, Additional history exists Procedures Procedure Name Priority Date/Time Associated Diagnosis Comments DIFFERENTIAL AUTO Routine 12/28/2024 10:58 AM CDT Other polyneuropathy IRON PROFILE W/ IBC Routine 12/28/2024 10:58 AM CDT Other polyneuropathy Nutritional anemia, unspecified CBC WITH AUTO DIFFERENTIAL Routine 12/28/2024 10:58 AM CDT Other polyneuropathy FOLATE Routine 12/28/2024 10:58 AM CDT Other polyneuropathy VITAMIN B12 Routine 12/28/2024 10:58 AM CDT Other polyneuropathy XR SPINE LUMBAR 6 OR MORE VIEWS Schedule Routine, Read Routine (OP Routine) 12/28/2024 10:34 AM CDT Other polyneuropathy Nutritional anemia, unspecified Lumbar radiculopathy GI - RESULT 12/14/2024 OPIATES CONFIRMATION MS, URINE Routine 11/25/2024 10:07 AM CDT Other polyneuropathy DRUGS OF ABUSE SCREEN, URINE WITH REFLEX CONFIRMATION Routine 11/25/2024 10:07 AM CDT Other polyneuropathy EGFR Routine 11/05/2024 9:20 AM FOOD COUNTER ATTENDANT Primary hypertension Mixed hyperlipidemia Impaired fasting glucose Stage 3a chronic kidney disease (HCC) DIFFERENTIAL AUTO Routine 11/05/2024 9:2 0 AM FOOD COUNTER ATTENDANT Primary hypertension LIPID PANEL Routine 11/05/2024 9:20 AM FOOD COUNTER ATTENDANT Primary hypertension Mixed hyperlipidemia COMPREHENSIVE METABOLIC PANEL Routine 11/05/2024 9:20 AM FOOD COUNTER ATTENDANT Primary hypertension Mixed hyperlipidemia Impaired fasting glucose Stage 3a chronic kidney disease (HCC) CBC WITH AUTO DIFFERENTIAL Routine 11/05/2024 9:20 AM FOOD COUNTER ATTENDANT Primary hypertension ALBUMIN CREATININE RATIO, URINE Routine 11/05/2024 9:20 AM FOOD COUNTER ATTENDANT Primary hypertension HEMOGLOBIN A1C Routine 11/05/2024 9:20 AM FOOD COUNTER ATTENDANT Impaired fasting glucose COLONOSCOPY Routine 10/27/2020 US ABDOMINAL AORTA 10/26/2019 10:04 AM FOOD COUNTER ATTENDANT HEPATITIS C ANTIBODY Routine 10/18/2019 10:38 AM FOOD COUNTER ATTENDANT Need for hepatitis C screening test from Last 3 Months or Most Recently Relevant to Health Maintenance Results * Differential, auto (12/28/2024 10:58 AM CDT) Pathologist [facility] Neutrophil abs 3.76 1.50 - 6.50 K/cumm Imm gran abs 0.02 0.00 - 0.10 K/cumm [facility] Lymphocyte abs 1.29 0.80 - 3.30 K/cumm [facility] Monocyte abs 0.55 0.20 - 0.80 K/cumm [facility] Eosinophil abs 0.20 0.00 - 0.50 K/cumm [facility] Basophil abs 0.05 0.00 - 0.10 K/cumm [facility] Neutrophil pct 64.0 % [facility] Comment: Interpretive Data Percent cell count reference ranges are not reported, since discordance with absolute values may lead to misinterpretation of CBC data. Current Interpretive Data was last revised on 2017. Imm gran pct 0.3 % [facility] Comment: Interpretive Data Percent cell count reference ranges are not reported, since discordance with absolute values may lead to misinterpretation of CBC data. Current Interpretive Data was last revised on 2017. Lymphocyte pct 22.0 % [facility] Comment: Interpretive Data Percent cell count reference ranges are not reported, since discordance with absolute values may lead to misinterpretation of CBC data. Current Interpretive Data was last revised on 2017. Monocyte pct 9.4 % [facility] Comment: Interpretive Data Percent cell count reference ranges are not reported, since discordance with absolute values may lead to misinterpretation of CBC data. Current Interpretive Data was last revised on 2017. Eosinophil pct 3.4 % [facility] Comment: Interpretive Data Percent cell count reference ranges are not reported, since discordance with absolute values may lead to misinterpretation of CBC data. Current Interpretive Data was last revised on 2017. Basophil pct 0.9 % [facility] Comment: Interpretive Data Percent cell count reference ranges are not reported, since discordance with absolute values may lead to misinterpretation of CBC data. Current Interpretive Data was last revised on 2017. Blood 12/28/2024 10:5 8 AM CDT 12/28/2024 12:17 PM CDT Vashti Garay GROUP TESTER LAB BLOOD ORDERABLES Final Re sult Performing Organization Address [facility] Co de Phone Number [address] [place] [address] * Iron profile w/ IBC (12/28/2024 10:58 AM CDT) [facility] Iron 121 50 - 150 mcg/dL TIBC 346 250 - 400 mcg/dL [facility] Transferrin saturation 35 20 - 50 % [facility] Blood 12/28/2024 10:5 8 AM CDT 12/28/2024 12:18 PM CDT Vashti Garay GROUP TESTER LAB BLOOD ORDERABLES Final Re sult Performing Organization Address [facility] de Phone Number [address] [address] * (ABNORMAL) CBC with auto differential (12/28/2024 10:58 AM CDT) [facility] WBC 5.87 3.80 - 9.90 K/cumm Hgb 13.6 13.0 - 17.5 g/dL [facility] Hct 41.0 38.9 - 50.3 % [facility] Plt 257 150 - 400 K/cumm [facility] MPV 9.6 9.1 - 12.3 fL [facility] RBC 4.22(L) 4.30 - 5.80 M/cumm [facility] MCV 97.2(H) 81.3 - 96.4 fL [facility] MCH 32.2 27.1 - 33.3 pg [facility] MCHC 33.2 32.3 - 35.7 g/dL [facility] RDW CV 13.2 11.1 - 14.9 % [facility] RDW SD 47.6 35.7 - 48.1 fL [facility] NRBC abs 0.00 0.00 - 0.01 K/cumm [facility] Blood 12/28/2024 10:5 8 AM CDT 12/28/2024 12:17 PM CDT Vashti Garay GROUP TESTER LAB BLOOD ORDERABLES Final Re sult Performing Organization Address [facility] Co de Phone Number [address] [place] [address] * Folate (12/28/2024 10:58 AM CDT) Pathologist [facility] Folic acid 18.7 >=5.0 ng/mL Blood 12/28/2024 10:5 8 AM CDT 12/28/2024 12:18 PM CDT Vashti Garay GROUP TESTER LAB BLOOD ORDERABLES Final Re sult Performing Organization Address [facility] Co de Phone Number [address] [place] [address] * Vitamin B12 (12/28/2024 10:58 AM CDT) Pathologist [facility] Vitamin B12 784 230 - 1,250 pg/mL Blood 12/28/2024 10:5 8 AM CDT 12/28/2024 12:18 PM CDT Vashti Garay GROUP TESTER LAB BLOOD ORDERABLES Final Re sult Performing Organization Address [facility] de Phone Number [address] [place] [address] * XR Spine Lumbar 6 or More Views (12/28/2024 10:34 AM CDT) Anatomical Region Laterality Modality L-spine N/A Computed Radiogr aphy 12/28/2024 1:11 PM CDT Narrative 12/28/2024 1:13 PM CDT EXAM DESCRIPTION: XR SPINE LUMBAR 6 OR MORE VIEWS REASON FOR STUDY: polyneuropathy, lumbar radiculopathy Numbness and burning sensation in both feet x 10 yrs, NKI TECHNIQUE: 6 radiographic view(s) of the lumbar spine. COMPARISON: 04/17/2022 FINDINGS: ALIGNMENT: Mild grade 1 retrolisthesis of L2 on L3 and L1 on L2. No evidence of subluxation with flexion or extension imaging. VERTEBRAE: Vertebral bodies of normal height. DISCS: Moderate degenerative disc space narrowing throughout the lumbar spine most pronounced at L5-S1 and L3-L4. There is moderate multilevel facet arthropathy. SOFT TISSUES: Moderate atheromatous vascular calcifications. IMPRESSION: Moderate spondylosis of the lumbar spine. No evidence of subluxation with flexion or extension imaging. THIS IS AN ELECTRONICALLY VERIFIED FINAL REPORT 12/28/2024 1:13 PM - Electronically signed by Ever DAVIS T: Report ID: [id number] Reading Location: [id number] Procedure Note Ever Gilbert MD - 12/28/2024 EXAM DESCRIPTION: XR SPINE LUMBAR 6 OR MORE VIEWS REASON FOR STUDY: polyneuropathy, lumbar radiculopathy Numbness and burning sensation in both feet x 10 yrs, NKI TECHNIQUE: 6 radiographic view(s) of the lumbar spine. COMPARISON: 04/17/2022 FINDINGS: ALIGNMENT: Mild grade 1 retrolisthesis of L2 on L3 and L1 on L2.No evidence of subluxation with flexion or extension imaging. VERTEBRAE: Vertebral bodies of normal height. DISCS: Moderate degenerative disc space narrowing throughout the lumbarspine most pronounced at L5-S1 and L3-L4. There is moderate multilevel facet arthropathy. SOFT TISSUES: Moderate atheromatous vascular calcifications. IMPRESSION: Moderate spondylosis of the lumbar spine. No evidence of subluxation with flexion or extension imaging. THIS IS AN ELECTRONICALLY VERIFIED FINAL REPORT 12/28/2024 1:13 PM - Electronically signed by Ever Gilbert M.D. RW T: Report ID: [id number] Reading Location: [id number] us Vashti Garay NP IMG XR PROCEDURES Final Resul t * GI - RESULT (12/14/2024) Anatomical Region Laterality Modality Other us Vashti Garay NP Final Result * (ABNORMAL) Drugs of Abuse Screen, Urine [...] Barbiturates, ur Not Detected CutOff 200ng/mL [facility] Comment: Interpretive Data - Barbiturates: Samples containing greater than 200 ng/mL secobarbital or other cross-reacting barbiturate compounds are reported as positive. False positive and false negative results are possible. Confirmatory testing required for definitive results. Current Interpretive Data was last reviewed 2023. Benzodiazepines, ur Not Detected CutOff 100ng/mL [facility] Comment: Interpretive Data - Benzodiazepines: Samples containing greater than 100 ng/mL nordiazepam or other cross-reacting compounds are reported as positive. False positive and false negative results are possible. Confirmatory testing required for definitive results. Current Interpretive Data was last reviewed 2023. Cannabinoids, ur Not Detected CutOff 50 ng/mL [facility] Comment: Interpretive Data - Cannabinoids: Samples containing greater than 50 ng/mL delta-9 THC -COOH or other cross- reacting compounds are reported as positive. False positive and false negative results are possible. Confirmatory testing required for definitive results. Current Interpretive Data was last reviewed 2023. Cocaine, ur Not Detected CutOff 150ng/mL [facility] Comment: Interpretive Data - Cocaine: Samples containing greater than 150 ng/mL benzoylecgonine or other cross- reacting compounds are reported as positive. False positive and false negative results are possible. Confirmatory testing required for definitive results. Current Interpretive Data was last reviewed 2023. Fentanyl, Ur Not Detected CutOff 5 ng/mL [facility] Comment: Interpretive Data - Fentanyl: Samples containing greater than 5 ng/mL norfentanyl, fentanyl, or other cross-reacting fentanyl compounds are reported as positive. False positive and false negative results are possible. Confirmatory testing required for definitive results. Current Interpretive Data was last reviewed 2023. Methadone, ur Not Detected CutOff 300ng/mL [facility] Comment: Interpretive Data - Methadone: Samples containing greater than 300 ng/mL d,l-methadone or other cross-reacting compounds are reported as positive. False positive and false negative results are possible. Confirmatory testing required for definitive results. Current Interpretive Data was last reviewed 2023. Opiates, ur Screen Positive, presumptive (A) CutOff 300ng/mL [facility] Comment: Interpretive Data - Opiates: Samples containing [...] reviewed 2023. Urine Creatinine 119 mg/dL [facility] Comment: Interpretive Data Urine Creatinine: < 10 mg/dL is extremely dilute = or > 10 but < 20 mg/dL is dilute = or > 20 mg/dL is normal Current Interpretive Data was last revised on 2017. Urine 11/25/2024 10:0 7 AM CDT 11/25/2024 12:25 PM CDT Narrative [facility] - 11/25/2024 1:12 PM CDT Drug of Abuse screening is performed by immunoassay for medical purposes only. This is not to be used for Pain Management purposes. If Detected, confirmation testing will be performed for Amphetamines, Cocaine, Fentanyl, Methadone, Opiates, Oxycodone or Phencyclidine. Vashti Garay NP LAB URINE ORDERABLES Final Re sult [facility] [address] [facility] Department [place] [address] * (ABNORMAL) Opiates Confirmation, Urine (11/25/2024 10:07 AM CDT) Codeine Conf, Ur Does Not Confirm CutOff 50 ng/mL Comment:Testing performed by : [facility], [address] [place] [address]., [id number] 6- Acetylmorphine Conf, Ur Does Not Confirm CutOff 10 ng/mL [facility] Comment:Testing performed by : [facility], [address] [place] [address]., [id number] Hydrocodone Conf, Ur Confirmed Positive(A) CutOff 50 ng/mL [facility] Comment:Testing performed by : [facility], [address] [place]., [address] Morphine Conf, Ur Does Not Confirm CutOff 50 ng/mL [facility] Comment:Testing performed by : [facility], [address] [place]., [address] Hydromorphone Conf, Ur Does Not Confirm CutOff 50 ng/mL [facility] Comment: Interpretive Data This test detects the presence or absence of drug compounds using LC Tandem mass spectrometry and is not intended to assess compliance with prescribed medications. While this test is highly specific, false positive and false negative results may occur in very rare circumstances. Contact the laboratory for consultation, if needed. Performance characteristics were determined by the [facility] in a manner consistent with CLIA requirement and has not been cleared or approved by the U.S. Food and Drug Administration. Current interpretive data was last revised 2020. Testing performed by: [facility], [address] [facility], [address] Urine 11/25/2024 10:0 7 AM CDT 11/25/2024 3:19 PM CDT us Vashti Garay NP LAB URINE ORDERABLES Final Re sult Performing Organization Address [facility] Co de Phone Number KRISTINE [address] [place] [address] * (ABNORMAL) eGFR (11/05/2024 9:20 AM FOOD COUNTER ATTENDANT) eGFR 44(L) >=60 mL/min/1. 73 m2 Comment: [...] was last reviewed 2021. Testing performed by: [facility], [address] [place] [address]., [address] Blood 11/05/2024 9:20 AM FOOD COUNTER ATTENDANT 11/05/2024 12:22 PM FOOD COUNTER ATTENDANT us Joe Roe MD LAB BLOOD ORDERABLES Final Result Performing Organization Address [facility]/ZIP Co de Phone Number KRISTINE [address] Department [place] [address] * Differential, auto (11/05/2024 9:20 AM FOOD COUNTER ATTENDANT) Neutrophil abs 3.3 1.5 - 6.5 K/cumm Comment:Testing performed by : [address], [place]., [address] Imm gran abs 0.0 0.0 - 0.1 K/cumm [facility] Comment:Testing performed by : [address], [place]., [address] Lymphocyte abs 1.6 0.8 - 3.3 K/cumm CERNER Comment:Testing performed by : [address] [address] Monocyte abs 0.6 0.2 - 0.8 K/cumm [facility] Comment:Testing performed by : [address], [place]., [address] Eosinophil abs 0.2 0.0 - 0.5 K/cumm [facility] Comment:Testing performed by : [address], [place]., [address] Basophil abs 0.1 0.0 - 0.1 K/cumm [facility] Comment:Testing performed by : [address] [address] Neutrophil pct 56.7 % [facility] Comment: Interpretive Data Percent cell count reference ranges are not reported, since discordance with absolute values may lead to misinterpretation of CBC data. Current Interpretive Data was last revised on 2017. Testing performed by: [address] [address] Imm gran pct 0.2 % [facility] Comment: Interpretive Data Percent cell count reference ranges are not reported, since discordance with absolute values may lead to misinterpretation of CBC data. Current Interpretive Data was last revised on 2017. Testing performed by: [address] [address] Lymphocyte pct 28.3 % [facility] Comment: Interpretive Data Percent cell count reference ranges are not reported, since discordance with absolute values may lead to misinterpretation of CBC data. Current Interpretive Data was last revised on 2017. Testing performed by: [address] [address] Monocyte pct 10.5 % [facility] Comment: Interpretive Data Percent cell count reference ranges are not reported, since discordance with absolute values may lead to misinterpretation of CBC data. Current Interpretive Data was last revised on 2017. Testing performed by: [address] [address] Eosinophil pct 3.3 % KRISTINE MATOS Comment: Interpretive Data Percent cell count reference ranges are not reported, since discordance with absolute values may lead to misinterpretation of CBC data. Current Interpretive Data was last revised on 2017. Testing performed by: [address] [address] Basophil pct 1.0 % KRISTINE Comment: Interpretive Data Percent cell count reference ranges are not reported, since discordance with absolute values may lead to misinterpretation of CBC data. Current Interpretive Data was last revised on 2017. Testing performed by: [address] [address] Blood 11/05/2024 9:20 AM FOOD COUNTER ATTENDANT 11/05/2024 12:24 PM FOOD COUNTER ATTENDANT Joe Roe MD LAB BLOOD ORDERABLES Final Result [facility] [address] [facility] Department [place] [address] * (ABNORMAL) CBC with auto differential (11/05/2024 9:20 AM FOOD COUNTER ATTENDANT) Pathologist [facility] WBC 5.8 3.8 - 9.9 K/cumm Comment:Testing performed by : [address] [address] Hgb 14.7 13.0 - 17.5 g/dL KRISTINE MATOS Comment:Testing performed by : [address] [address] Hct 46.2 38.9 - 50.3 % KRISTINE MATOS Comment:Testing performed by : [address] [address] Plt 257 150 - 400 K/cumm KRISTINE MATOS Comment:Testing performed by : [address] [address] MPV 9.8 9.1 - 12.3 fL KRISTINE MATOS Comment:Testing performed by : [address] [address] RBC 4.65 4.30 - 5.80 M/cumm KRISTINE MATOS Comment:Testing performed by : [address] [address] MCV 99.4(H) 81.3 - 96.4 fL KRISTINE MATOS Comment:Testing performed by : [address] [address] MCH 31.6 27.1 - 33.3 pg KRISTINE MATOS Comment:Testing performed by : [address] [address] MCHC 31.8(L) 32.3 - 35.7 g/dL KRISTINE MATOS Comment:Testing performed by : [address] [address] RDW CV 13.1 11.1 - 14.9 % KRISTINE Comment:Testing performed by : [address] [address] RDW SD 47.8 35.7 - 48.1 fL KRISTINE Comment:Testing performed by : [address] [address] NRBC abs 0.00 0.00 - 0.01 K/cumm KRISTINE Comment:Testing performed by : [address] [address] Blood 11/05/2024 9:20 AM FOOD COUNTER ATTENDANT 11/05/2024 12:24 PM FOOD COUNTER ATTENDANT Joe Roe MD LAB BLOOD ORDERABLES Final Result [facility] [address] [facility] Department [place] [address] * Albumin Creatinine Ratio, Urine (11/05/2024 9:20 AM FOOD COUNTER ATTENDANT) Albumin Ur <12.0 mg/L Comment: Interpretive Data No reference range established. Current interpretive data was last revised 2019. Testing performed by: [address] [place] [address] Creatinine Ur 155.0 mg/dL KRISTINE Comment: Interpretive Data No reference range established. Current interpretive data was last revised 2019. Testing performed by: [address] [address] Albumin Creatinine Ratio, Ur <8 1 - 29 mg/g KRISTINE Comment:Testing performed by : [address] [address] Urine 11/05/2024 9:20 AM FOOD COUNTER ATTENDANT 11/05/2024 12:23 PM FOOD COUNTER ATTENDANT Joe Roe MD LAB URINE ORDERABLES Final Result Performing Organization Address [facility] de Phone Number [place] [id number] [facility] [place] [address] * Hemoglobin A1c (11/05/2024 9:20 AM FOOD COUNTER ATTENDANT) [facility] Hgb A1C 5.6 4.0 - 5.6 % Comment:Testing performed by : [address] [address] Estimated Average Glucose 114 mg/dL KRISTINE Comment: The ADA recommends reporting an estimated Average Glucose (eAG) with all Hemoglobin A1c results using the equation derived from a study of 507 normal and diabetic adults. Minority populations were underrepresented and children were not included. (Diabetes Care 31:4646-0597, 2008). The eAG is not equivalent to a fasting glucose. Testing performed by: [address] [address] Blood 11/05/2024 9:20 AM FOOD COUNTER ATTENDANT 11/05/2024 12:24 PM FOOD COUNTER ATTENDANT Joe Roe MD LAB BLOOD ORDERABLES Final Result Performing Organization Address [facility] de Phone Number [facility] [address] [facility] [place] [address] * (ABNORMAL) Lipid panel (11/05/2024 9:20 AM FOOD COUNTER ATTENDANT) Cholesterol 191 30 - 199 mg/dL Comment: [...] last revised on 2018. Testing performed by: [address] [address] Triglycerides 200(H) <=149 mg/dL KRISTINE Comment: Interpretive Data Ages < [...] Pediatrics 2011;128:S213 2. NCEP Expert Panel. Circulation 2003;110:227 Current Interpretive Data was last revised on 2018. Testing performed by: [address] [address] HDL 50 >=40 mg/dL KRISTINE Comment: Interpretive [...] last revised on 2018. Testing performed by: [address] [address] LDL, calculated 106 <=129 mg/dL KRISTINE Comment: [...] last revised on 2024. Testing performed by: [address] [address] Non-HDL Cholesterol 141 mg/dL KRISTINE Comment: Interpretive [...] last revised on 2018. Testing performed by: [address] [address] Chol/HDL ratio 4 KRISTINE Comment:Testing performed by : [address] [address] Blood 11/05/2024 9:20 AM FOOD COUNTER ATTENDANT 11/05/2024 12:22 PM FOOD COUNTER ATTENDANT Joe Roe MD LAB BLOOD ORDERABLES Final Result KRISTINE [address] [facility] Department [place] [address] * (ABNORMAL) Comprehensive metabolic panel (11/05/2024 9:20 AM FOOD COUNTER ATTENDANT) Sodium 139 135 - 145 mmol/L Comment:Testing performed by : [address] [address] Potassium, pl 4.8 3.3 - 4.9 mmol/L KRISTINE Comment:Testing performed by : [address], [place]., [address] Chloride 104 97 - 110 mmol/L KRISTINE Comment:Testing performed by : [address] [address] CO2 26 22 - 32 mmol/L KRISTINE Comment:Testing performed by : [address] [address] Anion gap 9 2 - 15 mmol/L KRISTINE Comment:Testing performed by : [address] [address] BUN 24 6 - 25 mg/dL KRISTINE Comment:Testing performed by : [address] [address] Creatinine 1.60(H) 0.80 - 1.30 mg/dL KRISTINE Comment:Testing performed by : [address] [address] Glucose 92 70 - 199 mg/dL KRISTINE [...] was last revised 2022. Testing performed by: [address] [address] Calcium 9.8 8.5 - 10.3 mg/dL KRISTINE Comment:Testing performed by : [address] [address] Bilirubin, total 0.3 0.1 - 1.2 mg/dL KRISTINE Comment:Testing performed by : [address] [address] Protein, pl 7.6 6.5 - 8.5 g/dL KRISTINE Comment:Testing performed by : [address] [address] Albumin 4.4 3.5 - 5.0 g/dL KRISTINE Comment:Testing performed by : [address], [address] Alk phos 56 40 - 130 Units/L KRISTINE Comment:Testing performed by : [address], [address] ALT 14 7 - 55 Units/L KRISTINE Comment:Testing performed by : [address] [address] AST 26 10 - 50 Units/L KRISTINE Comment:Testing performed by : [address], [address] Blood 11/05/2024 9:20 AM FOOD COUNTER ATTENDANT 11/05/2024 12:22 PM FOOD COUNTER ATTENDANT Joe Roe MD LAB BLOOD ORDERABLES Final Result Performing Organization Address City/State/[facility] Co mn Phone Number KRISTINE [address] [facility] Department [place] [address] * Colonoscopy (10/27/2020) Anatomical Region Laterality Modality Other Historical Provider ENDOSCOPY PROCEDURES Kyra l Result * US Abdominal Aorta (10/26/2019 10:04 AM FOOD COUNTER ATTENDANT) Anatomical Region Laterality Modality Abdomen N/A Ultrasound 10/26/2019 12:3 2 PM FOOD COUNTER ATTENDANT Narrative 10/26/2019 12:34 PM FOOD COUNTER ATTENDANT Patient Name: JEAN CLAUDE MORALES Ordering Dr: Kevyn Noble PA-C, D.O.B: 1945 Exam Date: 10/26/19 1004 Age: 74 Sex: Male MR#: [id number] Loc: RADIOLOGY REPORT Order #[id number] Ultrasound US Abdominal Aorta Signed EXAM DESCRIPTION: [...] Moni Fuentes M.D. TB: DWAYNE Report ID: [id number] Reading Location: [id number] REPORT ELECTRONICALLY SIGNED IN OTHER VENDOR SYSTEM Resulting Agency Comment O Procedure Note Moni Fuentes MD - 10/26/2019 Patient Name: JEAN CLAUDE MORALES Dr: Kevyn Noble PA-C, D.O.B: 1945 Exam Date: 10/26/19 100 Age: 74 Sex: Male MR#: [id number] Loc: RADIOLOGY REPORT Order #[id number] Ultrasound US Abdominal Aorta Signed EXAM DESCRIPTION: [...] Moni Fuentes M.D. TB: TB Report ID: [id number] Reading Location: [place] [address] REPORT ELECTRONICALLY SIGNED IN OTHER VENDOR SYSTEM Kevyn FULLER IM US PROCEDURES Final Result * Hepatitis C antibody (10/18/2019 10:38 AM FOOD COUNTER ATTENDANT) Hep C Ab NONREACT NONREACTIVE [facility] Comment: Siemens TweetMemeaurXP using MY (chemiluminescent immunoassay) technology. NONREACTIVE: Antibodies [...] method. Blood specimen (specimen) 10/18/2019 10:38 AM FOOD COUNTER ATTENDANT 10/18/2019 12:43 PM FOOD COUNTER ATTENDANT Narrative Resulting Agency Comment CLI Kevyn FULLER LAB MICROBIOLOGY - [facility]AL [facility] Final Result [facility] [address] [place] [address] [place] [address] from Last 3 Months or Most Recently Relevant to Health Maintenance Insurance MEDICARE MEDICARE [facility] MEDICARE BLUE [employer]OSS MEDICARE SUPPLEMENT Care Teams Emergency Management Director Relationship Specialty Start Date End Date Vashti Garay NP PCP - General Family Medicine 11/24/24
--- OUTSIDE RECORDS SUMMARY | 2025-01-21 09:59 | XMS_ITS ---
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
--- OUTSIDE RECORDS SUMMARY | 2025-01-21 09:59 | XMS_ITS | Encounter Summary ---
Author Organization [facility] Healthcare Address [address] [place] [address] Care Team Providers Care Decorating And Assembly Supervisor Name Role Phone Vashti Garay ENDOSCOPY TECH Primary Care Provider [phone] Encounter Details Date Type Department Care Team (Late st Contact Info) Description 11/25/2024 Results Follow-Up [facility] Medical Group Family Medicine at [address] [place] [address] Vashti Garay, OSCAR [address] [place] [address] [address] [place] [address] Drugs of Abuse Screen, Urine with Reflex Confirmation Social History Tobacco Use Types Packs/Day Years [...] on file Legal Sex Male 6:39 AM ORGANIZATIONAL DEVELOPMENT DIRECTOR Gender Identity Male 10/22/2021 9:05 AM ORGANIZATIONAL DEVELOPMENT DIRECTOR Sexual Orientation Not on file documented as of this encounter Plan of Treatment Not on file documented as of this encounter Visit Diagnoses Not on filedocumented in this encounter Care Teams Decorating And Assembly Supervisor Relationship Specialty Start Date End Date Vashti Garay NP PCP - General Family Medicine 11/24/24 documented as of this encounter
--- OUTSIDE RECORDS SUMMARY | 2025-01-21 09:59 | XMS_ITS | Encounter Summary ---
Author Organization [facility] Healthcare Address [address] [place] [address] Care Team Providers Care Algology Teacher Name Role Phone Vashti Garay ROVING MARKER Primary Care Provider [phone] Encounter Details Date Type Department Care Team (Late st Contact Info) Description 12/30/2024 Results Follow-Up [facility] Medical Group Family Medicine at [address] [place] [address] Vashti Garay, OSCAR [address] [place] [address] [address] [place] [address] Vitamin B12, Folate, CBC with auto differential, Additional followed-up results: 2 Social History Tobacco Use Types Packs/Day Years [...] on file Legal Sex Male 6:39 AM NON LICENSED NUCLEAR PLANT OPERATOR Gender Identity Male 10/22/2021 9:05 AM NON LICENSED NUCLEAR PLANT OPERATOR Sexual Orientation Not on file documented as of this encounter Plan of Treatment Not on file documented as of this encounter Visit Diagnoses Not on filedocumented in this encounter Care Teams Algology Teacher Relationship Specialty Start Date End Date Vashti Garay NP PCP - General Family Medicine 11/24/24 documented as of this encounter
--- OUTSIDE RECORDS SUMMARY | 2025-01-21 09:59 | XMS_ITS | Encounter Summary ---
Author Organization [facility] Facility Care Team Providers Care Refinery Operator Crude Unit Name Role Phone Kevyn Noble Primary Care Provider [phone] Vashti Garay NP Primary Care Provider [phone] Encounter Details Date Type Department Care Team (Latest Contact Info) Description 10/16/2018 Orders Only [facility] CLINCONV ProviderSimi MD [address] [place] [address] Social History Tobacco Use Types Packs/Day Years Used Date Smoking Tobacco: Never Assessed Sex and Gender Information Value Date Recorded Sex Assigned at Not on file Legal Sex Male 6:39 AM ARMATURE WINDER REPAIRER Gender Identity Male 10/22/2021 9:05 AM ARMATURE WINDER REPAIRER Sexual Orientation Not on file documented as of this encounter Plan of Treatment Not on file documented as of this encounter Procedures Procedure Name Priority Date/Time Associated Diagnosis Comments PROCEDURE - RESULT 10/16/2018 12 :00 AM ARMATURE WINDER REPAIRER documented in this encounter Results * PROCEDURE - RESULT (10/16/2018 12:00 AM ARMATURE WINDER REPAIRER) Narrative 10/16/2018 12:00 AM ARMATURE WINDER REPAIRER Ordered by an unspecified provider. Historical Provider Final Res ult documented in this encounter Visit Diagnoses Not on filedocumented in this encounter Care Teams Refinery Operator Crude Unit Relationship Specialty Start Date End Date Kevyn Noble PA PCP - General 10/19/18 09/08/23 Vashti Garay NP PCP - General Family Medicine 11/24/24 documented as of this encounter
--- OUTSIDE RECORDS SUMMARY | 2025-01-21 09:59 | XMS_ITS | Encounter Summary ---
Author Organization [facility] Healthcare Address [address] [place] [address] Care Team Providers Care Field Marketing Manager Name Role Phone Vashti Garay SHINGLE GRADER Primary Care Provider [phone] Encounter Details Date Type Department Care Team (Late st Contact Info) Description 12/17/2024 Results Follow-Up [facility] Medical Group Family Medicine at [address] [place] [address] Vashti Garay, OSCAR [address] [place] [address] [address] [place] [address] GI - RESULT Social History Tobacco Use Types Packs/Day Years [...] on file Legal Sex Male 6:39 AM EMT PARAMEDIC Gender Identity Male 10/22/2021 9:05 AM EMT PARAMEDIC Sexual Orientation Not on file documented as of this encounter Plan of Treatment Not on file documented as of this encounter Visit Diagnoses Not on filedocumented in this encounter Care Teams Field Marketing Manager Relationship Specialty Start Date End Date Vashti Garay NP PCP - General Family Medicine 11/24/24 documented as of this encounter
--- OUTSIDE RECORDS SUMMARY | 2025-01-21 09:59 | XMS_ITS ---
Author Organization 1 OF Eddie ng [facility] Address [address] [facility] [address] [place] [address] Care Team Providers Care Investigations Chief Name Role Phone Kevyn Noble PA-C Primary Care Provider UnavailGianfranco Rhoades Unavailable [phone] Allergies No Known Allergies REASON FOR [...] Problem Status W/U Status Risk Notes Problem [id number] Skin ulcer of left heel with fat layer exposed (L97.422) Active confirmed Vital Signs Height 72 in 04/01/2024 Weight 184 lbs 04/01/2024 BMI 24.95 kg/m2 04/01/2024 Encounters Encounter Location Date Provider Diagnosis 1 OF Eddie Lemon DPM [facility] [address] [address] 04/01/2024 Gianfranco Lemon 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 f/u abscess RT foot. * HPI: Vernon Lutz assisting with visit:: HPI/Rooming: Vernon sandra. Melyssa graciamerlin reason for visit:: 79 year old male [...] of Marily Lemon DPM on 01/21/2025 at 09:59 AM CDT Sign off status: Pending * Provider: Eddie Lemon DPM Date: 0 04/01/2024 Generated for Mina fofana/Yakov/eTransmitting on: 0 01/21/2025 09:59 AM CDT History and Physical Notes * [...]
--- OUTSIDE RECORDS SUMMARY | 2025-01-21 09:59 | XMS_ITS ---
Author Organization 1 OF Eddie ng [facility] Address [address] [place] [address] Care Team Providers Care Range Operator Name Role Phone Kevyn Noble PA-C Primary Care Provider UnavailGianfranco Rhoades Unavailable [phone] scan results Encounters Encounter Location Date Provider Diagnosis 1 OF Eddie [facility] [address] [place] [address] 03/30/2024 Gianfranco Lemon Plan Of Treatment No Information Progress Notes * Domingo MORALESDOB:1945 ( 79 yo M)Acc No.[id number]:03/30/2024 Patient: Domingo NESBITT :1945 A ge:79 Y S ex:Male Address:[address], [place], [address] * true * Date: Generated for Nati ng/Faalexiag/eTransmitting on: 0 01/21/2025 09:59 AM CDT
--- OUTSIDE RECORDS SUMMARY | 2025-01-21 09:59 | XMS_ITS | Encounter Summary ---
Author Organization [facility] Facility Care Team Providers Care Construction Materials Tester Name Role Phone Kevyn Noble Primary Care Provider [phone] Vashti Garay NP Primary Care Provider Encounter Details Date Type Department Care Team (Latest Contact Info) Description 07/14/2013 Orders Only [facility] CLINCONV ProviderSimi MD [address] [place] [address] Social History Tobacco Use Types Packs/Day Years Used Date Smoking Tobacco: Never Assessed Sex and Gender Information Value Date Recorded Sex Assigned at Not on file Legal Sex Male 6:39 AM DATA ENGINEER Gender Identity Male 10/22/2021 9:05 AM DATA ENGINEER Sexual Orientation Not on file documented as [...] on filedocumented in this encounter Care Teams Construction Materials Tester Relationship Specialty Start Date End Date Kevyn Noble PA PCP - General 10/19/18 09/08/23 Vashti Garay NP PCP - General Family Medicine 11/24/24 documented as of this encounter
--- OUTSIDE RECORDS SUMMARY | 2025-01-21 10:00 | XMS_ITS | Referral Summary ---
Author Organization [facility] at the Medical Office Building Address [address] [place] [phone] Care Team Providers Care Software Implementation Specialist Name Role Phone Vashti Garay NP Primary Care Provider [phone] Encounters Date Type Department Care Team Description 01/19/2025 Orders Only [facility] Medical [facility] at [address] [phone] Vashti Garay NP Other chronic pain 12/30/2024 Results Follow-Up [facility] Family Medicine at [address] [phone] Vashti Garay NP Vitamin B12, Folate, CBC with auto differential, Additional followed-up results: 2 12/30/2024 Results Follow-Up [facility] Family Medicine at [address] [phone] Vashti Garay NP XR Spine Lumbar 6 or More Views 12/28/2024 10:45 AM CDT Lab [facility] [address] OP Lab [address] [place] [address] Other polyneuropathy; Nutritional anemia, unspecified 12/28/2024 10:23 AM CDT - 12/28/2024 11:59 PM CDT Hospital Encounter [facility] Di[facility] Imaging [address] [place] [address] Other polyneuropathy; Nutritional anemia, unspecified; Lumbar radiculopathy Discharge Disposition: Discharge to home or self care 12/22/2024 11:30 AM CDT Office Visit [facility] at [address] [place] [address] Vashti Garay NP Other polyneuropathy (Primary Dx); Nutritional anemia, unspecified; Lumbar radiculopathy; 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 pain 12/17/2024 Results Follow-Up [facility] Medicine at [address] [address] Vashti Garay NP GI - RESULT 12/14/2024 Orders Only [facility] [address] [place] [phone] Vashti Garay NP 11/25/2024 Results Follow-Up [facility] at [address] [address] Vashti Garay NP Drugs of Abuse Screen, Urine with Reflex Confirmation 11/25/2024 10:05 AM CDT Lab [facility] 3 OP Lab [address] [place] [address] Other polyneuropathy 11/24/2024 10:00 AM CDT Office Visit [facility] at [address] [phone] Vashti Garay NP Healthcare maintenance (Primary Dx); Need for hepatitis B screening test; Other polyneuropathy; Sick sinus syndrome (CMS/HCC) (HCC); Gastroesophageal reflux disease, unspecified whether esophagitis present; Tinnitus of both ears; Stage 3b chronic kidney disease (HCC) 11/05/2024 9:45 AM MACHINE GUN MECHANIC Lab [facility] OP Lab [address] [place] [address] Impaired fasting glucose; Primary hypertension; Mixed hyperlipidemia; Stage 3a chronic kidney disease (HCC) 11/05/2024 9:30 AM MACHINE GUN MECHANIC Office Visit [facility] [address] [address] Joe Roe MD Primary hypertension (Primary Dx); Mixed hyperlipidemia; Sick sinus syndrome (HCC); Pacemaker; Impaired fasting glucose; Stage 3a chronic kidney disease (HCC); Numbness of feet; Bilateral foot pain; Poor balance; Other polyneuropathy; Other chronic pain; Benign prostatic hyperplasia with weak urinary stream; Irritable bowel syndrome, unspecified type; Gastroesophageal reflux disease without esophagitis; Insomnia, unspecified type from Last 3 Months Allergies No known [...] 01/21/2020 Assessment & Plan (07/29/2023 3:39 PM MACHINE GUN MECHANIC): This is a stable chronic condition. Monitor [...] routine Assessment & Plan (09/30/2022 4:18 PM MACHINE GUN MECHANIC): Images from the original note were not [...] consider Assessment & Plan (07/29/2023 3:39 PM MACHINE GUN MECHANIC): This is diet controlled Assessment & Plan (03/19/2023 9:34 AM CDT): Currently controlled with diet will continue to follow Assessment & Plan (02/05/2023 2:05 PM CDT): Diet controlled Assessment & Plan (11/14/2022 9:20 AM CDT): controlled Assessment & Plan (09/30/2022 4:18 PM MACHINE GUN MECHANIC): Diet controlled Assessment & Plan (05/15/2022 11:44 AM CDT): Controlled with diet Assessment & Plan (04/09/2022 4:32 PM CDT): Diet and fiber Assessment & Plan (11/07/2021 1:51 PM MACHINE GUN MECHANIC): Diet controlled Assessment & Plan (04/18/2020 9:57 AM CDT): This is currently controlled with diet will continue to follow BMI 26.0-26.9,adult 06/11/2018 Assessment & Plan (10/19/2020 9:59 AM MACHINE GUN MECHANIC): Healthy diet Benign prostatic hyperplasia 03/30/2018 Assessment & Plan (04/09/2022 4:32 PM CDT): Well controlled Assessment & Plan (04/24/2021 10:03 AM CDT): Stable and continue meds Assessment & Plan (10/19/2020 9:58 AM MACHINE GUN MECHANIC): Controlled with meds Assessment & Plan (04/18/2020 [...] 03/30/2018 Assessment & Plan (07/29/2023 3:39 PM MACHINE GUN MECHANIC): Patient is to continue present medications, work [...] routine. Assessment & Plan (09/30/2022 4:18 PM MACHINE GUN MECHANIC): Patient is to continue present medications, work [...] routine. Assessment & Plan (10/19/2020 9:58 AM MACHINE GUN MECHANIC): Patient is to continue present medications, work [...] cardiology Assessment & Plan (11/07/2021 1:51 PM MACHINE GUN MECHANIC): Seeing cardiology Assessment & Plan (04/24/2021 10:04 AM CDT): Cardiology following Assessment & Plan (10/19/2020 9:58 AM MACHINE GUN MECHANIC): Seeing cardiology and doing well Assessment & Plan (04/18/2020 9:58 AM CDT): Patient is asymptomatic and followed by cardiology and on a baby aspirin Assessment & Plan (12/27/2019 10:32 AM CDT): Has pacemaker, seeing Cardiology 20 january Assessment & Plan (12/13/2019 10:20 AM CDT): Patient has a pacemaker and he is asymptomatic in clinic today I have a message out to his jack tamp operator and I am faxing over the EKG [...] 11/14/2017 Assessment & Plan (07/29/2023 3:40 PM MACHINE GUN MECHANIC): Patient is very legitimate and has had a really hard time with this and I see no reason to even try to taper as is the only thing that gives him relief. My collaborating partner is moving away from half-way pain management therefore I also have to do the same I offered patient to go see a pain management specialists he was not happy about this he asked if there was someone else I told him about my previous partner at [facility] Dr. Joe Roe I let him [...] ordered Assessment & Plan (09/30/2022 4:19 PM MACHINE GUN MECHANIC): This is chronic, exhausted everything Patient and [...] neurology Assessment & Plan (11/07/2021 1:51 PM MACHINE GUN MECHANIC): Chronic ongoing Assessment & Plan (12/28/2020 3:31 [...] 10/13/2015 Assessment & Plan (11/07/2021 1:51 PM MACHINE GUN MECHANIC): Patient is to continue present medications, work [...] 11/24/2024 Assessment & Plan (10/19/2020 10:05 AM MACHINE GUN MECHANIC): Currently not an issue, if this becomes [...] neuropathy Assessment & Plan (10/19/2020 9:58 AM MACHINE GUN MECHANIC): Taking as needed medical marijuna, not daily, [...] depression Assessment & Plan (10/19/2020 9:58 AM MACHINE GUN MECHANIC): No depression Assessment & Plan (04/18/2020 9:57 [...] DDD Assessment & Plan (09/30/2022 4:19 PM MACHINE GUN MECHANIC): Patient and I had a discussion about [...] meds Assessment & Plan (11/07/2021 1:50 PM MACHINE GUN MECHANIC): This is chronic, he failed PY, did [...] and wished to continue current treatment. Other half-way (current) drug therapy 11/01/2016 11/24/2024 Chest pain [...] on file Legal Sex Male 6:39 AM MACHINE GUN MECHANIC Gender Identity Male 10/22/2021 9:05 AM MACHINE GUN MECHANIC Sexual Orientation Not on file Last Filed [...] 12/22/2024 11:43 AM CDT Plan of Treatment Not on [...] Other polyneuropathy EGFR Routine 11/05/2024 9:20 AM MACHINE GUN MECHANIC Primary hypertension Mixed hyperlipidemia Impaired fasting glucose Stage 3a chronic kidney disease (HCC) DIFFERENTIAL AUTO Routine 11/05/2024 9:2 0 AM MACHINE GUN MECHANIC Primary hypertension LIPID PANEL Routine 11/05/2024 9:20 AM MACHINE GUN MECHANIC Primary hypertension Mixed hyperlipidemia COMPREHENSIVE METABOLIC PANEL Routine 11/05/2024 9:20 AM MACHINE GUN MECHANIC Primary hypertension Mixed hyperlipidemia Impaired fasting glucose Stage 3a chronic kidney disease (HCC) CBC WITH AUTO DIFFERENTIAL Routine 11/05/2024 9:20 AM MACHINE GUN MECHANIC Primary hypertension ALBUMIN CREATININE RATIO, URINE Routine 11/05/2024 9:20 AM MACHINE GUN MECHANIC Primary hypertension HEMOGLOBIN A1C Routine 11/05/2024 9:20 AM MACHINE GUN MECHANIC Impaired fasting glucose COLONOSCOPY Routine 10/27/2020 US ABDOMINAL AORTA 10/26/2019 10:04 AM MACHINE GUN MECHANIC HEPATITIS C ANTIBODY Routine 10/18/2019 10:38 AM MACHINE GUN MECHANIC Need for hepatitis C screening test from Last 3 Months or Most Recently Relevant to Health Maintenance Results * Differential, auto (12/28/2024 10:58 AM CDT) Pathologist [facility] Neutrophil abs 3.76 1.50 - 6.50 K/cumm Imm gran abs 0.02 0.00 - 0.10 K/cumm [facility] Lymphocyte abs 1.29 0.80 - 3.30 K/cumm [facility] Monocyte abs 0.55 0.20 - 0.80 K/cumm [facility] Eosinophil abs 0.20 0.00 - 0.50 K/cumm [facility] Basophil abs 0.05 0.00 - 0.10 K/cumm [facility] Neutrophil pct 64.0 % [facility] Comment: Interpretive Data Percent cell count reference ranges are not reported, since discordance with absolute values may lead to misinterpretation of CBC data. Current Interpretive Data was last revised on 2017. Imm gran pct 0.3 % [facility] Comment: Interpretive Data Percent cell count reference ranges are not reported, since discordance with absolute values may lead to misinterpretation of CBC data. Current Interpretive Data was last revised on 2017. Lymphocyte pct 22.0 % [facility] Comment: Interpretive Data Percent cell count reference ranges are not reported, since discordance with absolute values may lead to misinterpretation of CBC data. Current Interpretive Data was last revised on 2017. Monocyte pct 9.4 % [facility] Comment: Interpretive Data Percent cell count reference ranges are not reported, since discordance with absolute values may lead to misinterpretation of CBC data. Current Interpretive Data was last revised on 2017. Eosinophil pct 3.4 % [facility] Comment: Interpretive Data Percent cell count reference ranges are not reported, since discordance with absolute values may lead to misinterpretation of CBC data. Current Interpretive Data was last revised on 2017. Basophil pct 0.9 % [facility] Comment: Interpretive Data Percent cell count reference ranges are not reported, since discordance with absolute values may lead to misinterpretation of CBC data. Current Interpretive Data was last revised on 2017. Blood 12/28/2024 10:5 8 AM CDT 12/28/2024 12:17 PM CDT Vashti Garay REPEAT PHOTOCOMPOSING MACHINE OPERATOR LAB BLOOD ORDERABLES Final Re sult Performing Organization Address [facility] Co de Phone Number [address] [place] [address] * Iron profile w/ IBC (12/28/2024 10:58 AM CDT) [facility] Iron 121 50 - 150 mcg/dL TIBC 346 250 - 400 mcg/dL [facility] Transferrin saturation 35 20 - 50 % [facility] Blood 12/28/2024 10:5 8 AM CDT 12/28/2024 12:18 PM CDT Vashti Garay REPEAT PHOTOCOMPOSING MACHINE OPERATOR LAB BLOOD ORDERABLES Final Re sult Performing Organization Address [facility] de Phone Number [address] [place] [address] * (ABNORMAL) CBC with auto differential (12/28/2024 10:58 AM CDT) [facility] WBC 5.87 3.80 - 9.90 K/cumm Hgb 13.6 13.0 - 17.5 g/dL [facility] Hct 41.0 38.9 - 50.3 % [facility] Plt 257 150 - 400 K/cumm [facility] MPV 9.6 9.1 - 12.3 fL [facility] RBC 4.22(L) 4.30 - 5.80 M/cumm [facility] MCV 97.2(H) 81.3 - 96.4 fL [facility] MCH 32.2 27.1 - 33.3 pg [facility] MCHC 33.2 32.3 - 35.7 g/dL [facility] RDW CV 13.2 11.1 - 14.9 % [facility] RDW SD 47.6 35.7 - 48.1 fL [facility] NRBC abs 0.00 0.00 - 0.01 K/cumm [facility] Blood 12/28/2024 10:5 8 AM CDT 12/28/2024 12:17 PM CDT Vashti Garay REPEAT PHOTOCOMPOSING MACHINE OPERATOR LAB BLOOD ORDERABLES Final Re sult Performing Organization Address [facility] Co de Phone Number [address] [place] [address] * Folate (12/28/2024 10:58 AM CDT) Folic acid 18.7 >=5.0 ng/mL Blood 12/28/2024 10:5 8 AM CDT 12/28/2024 12:18 PM CDT Vashti Garay REPEAT PHOTOCOMPOSING MACHINE OPERATOR LAB BLOOD ORDERABLES Final Re sult Performing Organization Address [facility] de Phone Number [address] [place] [address] * Vitamin B12 (12/28/2024 10:58 AM CDT) Vitamin B12 784 230 - 1,250 pg/mL Blood 12/28/2024 10:5 8 AM CDT 12/28/2024 12:18 PM CDT Vashti Garay REPEAT PHOTOCOMPOSING MACHINE OPERATOR LAB BLOOD ORDERABLES Final Re sult Performing Organization Address [facility] Co de Phone Number [address] [place] [address] * XR Spine Lumbar 6 or More [...] Ever Gilbert M.D. RW T: Report ID: [id number] Reading Location: [id number] Procedure Note Ever Gilbert MD - 12/28/2024 [...] Ever Gilbert M.D. RW T: Report ID: [id number] Reading Location: [id number] Vashti Garay NP IMG XR PROCEDURES Final Resul t * GI - RESULT (12/14/2024) Anatomical Region Laterality Modality Other Vashti Garay NP Final Result * (ABNORMAL) [...] 2023. Benzodiazepines, ur Not Detected CutOff 100ng/mL [facility] Comment: Interpretive Data - Benzodiazepines: Samples containing greater than 100 ng/mL nordiazepam or other cross-reacting compounds are reported as positive. False positive and false negative results are possible. Confirmatory testing required for definitive results. Current Interpretive Data was last reviewed 2023. Cannabinoids, ur Not Detected CutOff 50 ng/mL [facility] Comment: Interpretive Data - Cannabinoids: Samples containing greater than 50 ng/mL delta-9 THC -COOH or other cross- reacting compounds are reported as positive. False positive and false negative results are possible. Confirmatory testing required for definitive results. Current Interpretive Data was last reviewed 2023. Cocaine, ur Not Detected CutOff 150ng/mL [facility] Comment: Interpretive Data - Cocaine: Samples containing [...] AM CDT 11/25/2024 12:25 PM CDT Narrative [facility] - 11/25/2024 1:12 PM CDT Drug of Abuse screening is performed by immunoassay for medical purposes only. This is not to be used for Pain Management purposes. If Detected, confirmation testing will be performed for Amphetamines, Cocaine, Fentanyl, Methadone, Opiates, Oxycodone or Phencyclidine. Vashti Garay NP LAB URINE ORDERABLES Final Re sult [facility] [address] [facility] [place] [address] * (ABNORMAL) Opiates Confirmation, Urine (11/25/2024 10:07 AM CDT) Codeine Conf, Ur Does Not Confirm CutOff 50 ng/mL Comment:Testing performed by : [facility], [address] [place] [address]., [id number] 6- Acetylmorphine Conf, Ur Does Not Confirm CutOff 10 ng/mL K[facility]STINE Comment:Testing performed by : [facility], [address] [place] [address]., [address] Hydrocodone Conf, Ur Confirmed Positive(A) CutOff 50 ng/mL KRISTINE Comment:Testing performed by : [facility], [address] [place]., [address] Morphine Conf, Ur Does Not Confirm CutOff 50 ng/mL KRISTINE Comment:Testing performed by : [facility], [address] [place] [address]., [address] Hydromorphone Conf, Ur Does Not Confirm CutOff 50 ng/mL [facility] Comment: Interpretive Data This test detects the presence or absence of drug compounds using LC Tandem mass spectrometry and is not intended to assess compliance with prescribed medications. While this test is highly specific, false positive and false negative results may occur in very rare circumstances. Contact the laboratory for consultation, if needed. Performance characteristics were determined by the [facility] in a manner consistent with CLIA requirement and has not been cleared or approved by the U.S. Food and Drug Administration. Current interpretive data was last revised 2020. Testing performed by: [facility], [address] [place] [address]., [id number] Urine 11/25/2024 10:0 7 AM CDT 11/25/2024 3:19 PM CDT us Vashti Garay NP LAB URINE ORDERABLES Final Re sult Performing Organization Address [facility] Co de Phone Number KRISTINE [address] [place] [address] * (ABNORMAL) eGFR (11/05/2024 9:20 AM MACHINE GUN MECHANIC) eGFR 44(L) >=60 mL/min/1. 73 m2 Comment: [...] was last reviewed 2021. Testing performed by: [facility], [address] [place] [address]., [id number] Blood 11/05/2024 9:20 AM MACHINE GUN MECHANIC 11/05/2024 12:22 PM MACHINE GUN MECHANIC us Joe Roe MD LAB BLOOD ORDERABLES Final Result Performing Organization Address City/[facility]/ZIP Co de Phone Number KRISTINE [facility] [place] [address] * Differential, auto (11/05/2024 9:20 AM MACHINE GUN MECHANIC) Pathologist [facility] Neutrophil abs 3.3 1.5 - 6.5 K/cumm Comment:Testing performed by : [facility], [address] [place] [address], [place]., [address] Imm gran abs 0.0 0.0 - 0.1 K/cumm [facility] Comment:Testing performed by : [address], [place]., [address] Lymphocyte abs 1.6 0.8 - 3.3 K/cumm [facility] Comment:Testing performed by : [address], [place]., [address] Monocyte abs 0.6 0.2 - 0.8 K/cumm [facility] Comment:Testing performed by : [address], [place]., [address] Eosinophil abs 0.2 0.0 - 0.5 K/cumm [facility] Comment:Testing performed by : [address], [place]., [address] Basophil abs 0.1 0.0 - 0.1 K/cumm [facility] Comment:Testing performed by : [address] [address] Neutrophil pct 56.7 % [facility] Comment: Interpretive Data Percent cell count reference ranges are not reported, since discordance with absolute values may lead to misinterpretation of CBC data. Current Interpretive Data was last revised on 2017. Testing performed by: [address] [address] Imm gran pct 0.2 % [facility] Comment: Interpretive Data Percent cell count reference ranges are not reported, since discordance with absolute values may lead to misinterpretation of CBC data. Current Interpretive Data was last revised on 2017. Testing performed by: [address] [address] Lymphocyte pct 28.3 % [facility] Comment: Interpretive Data Percent cell count reference ranges are not reported, since discordance with absolute values may lead to misinterpretation of CBC data. Current Interpretive Data was last revised on 2017. Testing performed by: [address] [address] Monocyte pct 10.5 % [facility] Comment: Interpretive Data Percent cell count reference ranges are not reported, since discordance with absolute values may lead to misinterpretation of CBC data. Current Interpretive Data was last revised on 2017. Testing performed by: [address] [address] Eosinophil pct 3.3 % [facility] Comment: Interpretive Data Percent cell count reference ranges are not reported, since discordance with absolute values may lead to misinterpretation of CBC data. Current Interpretive Data was last revised on 2017. Testing performed by: [address] [address] Basophil pct 1.0 % [facility] Comment: Interpretive Data Percent cell count reference ranges are not reported, since discordance with absolute values may lead to misinterpretation of CBC data. Current Interpretive Data was last revised on 2017. Testing performed by: [address] [address] Blood 11/05/2024 9:20 AM MACHINE GUN MECHANIC 11/05/2024 12:24 PM MACHINE GUN MECHANIC us Joe Roe MD LAB BLOOD ORDERABLES Final Result [facility] [address] [facility] Department [place] [address] * (ABNORMAL) CBC with auto differential (11/05/2024 9:20 AM MACHINE GUN MECHANIC) Pathologist [facility] WBC 5.8 3.8 - 9.9 K/cumm Comment:Testing performed by : [address] [address] Hgb 14.7 13.0 - 17.5 g/dL [facility]INE Comment:Testing performed by : [address] [address] Hct 46.2 38.9 - 50.3 % [facility] Comment:Testing performed by : [address] [address] Plt 257 150 - 400 K/cumm [facility] Comment:Testing performed by : [address] [address] MPV 9.8 9.1 - 12.3 fL [facility] Comment:Testing performed by : [facility], [address] [place] [address]., [address] RBC 4.65 4.30 - 5.80 M/cumm [facility] Comment:Testing performed by : [address] [address] MCV 99.4(H) 81.3 - 96.4 fL [facility] Comment:Testing performed by : [address] [address] MCH 31.6 27.1 - 33.3 pg [facility]ST[facility] Comment:Testing performed by : [address] [address] MCHC 31.8(L) 32.3 - 35.7 g/dL [facility]OS Comment:Testing performed by : [address], [address] RDW CV 13.1 11.1 - 14.9 % [facility]INE Comment:Testing performed by : [address] [address] RDW SD 47.8 35.7 - 48.1 fL [facility]INE Comment:Testing performed by : [address] [address] NRBC abs 0.00 0.00 - 0.01 K/cumm [facility] Comment:Testing performed by : [address] [address] Blood 11/05/2024 9:20 AM MACHINE GUN MECHANIC 11/05/2024 12:24 PM MACHINE GUN MECHANIC us Joe Roe MD LAB BLOOD ORDERABLES Final Result [facility] [address] [facility] Department [place] [address] * Albumin Creatinine Ratio, Urine (11/05/2024 9:20 AM MACHINE GUN MECHANIC) Albumin Ur <12.0 mg/L Comment: Interpretive Data No reference range established. Current interpretive data was last revised 2019. Testing performed by: [address] [address] Creatinine Ur 155.0 mg/dL K[facility]STINE Comment: Interpretive Data No reference range established. Current interpretive data was last revised 2019. Testing performed by: [address] [address] Albumin Creatinine Ratio, Ur <8 1 - 29 mg/g [facility] Comment:Testing performed by : [address] [address] Urine 11/05/2024 9:20 AM MACHINE GUN MECHANIC 11/05/2024 12:23 PM MACHINE GUN MECHANIC Joe Roe MD LAB URINE ORDERABLES Final Result Performing Organization Address [facility] de Phone Number KRISTINE [address] [place] [address] * Hemoglobin A1c (11/05/2024 9:20 AM MACHINE GUN MECHANIC) [facility] Hgb A1C 5.6 4.0 - 5.6 % Comment:Testing performed by : [address] [address] Estimated Average Glucose 114 mg/dL K[facility]STINE MATOS Comment: The ADA recommends reporting an estimated Average Glucose (eAG) with all Hemoglobin A1c results using the equation derived from a study of 507 normal and diabetic adults. Minority populations were underrepresented and children were not included. (Diabetes Care 31:5461-3004, 2008). The eAG is not equivalent to a fasting glucose. Testing performed by: [address] [address] Blood 11/05/2024 9:20 AM MACHINE GUN MECHANIC 11/05/2024 12:24 PM MACHINE GUN MECHANIC Joe Roe MD LAB BLOOD ORDERABLES Final Result Performing Organization Address [facility] Co de Phone Number [id number] [place] [address] * (ABNORMAL) Lipid panel (11/05/2024 9:20 AM MACHINE GUN MECHANIC) Cholesterol 191 30 - 199 mg/dL Comment: [...] last revised on 2018. Testing performed by: [address] [address] Triglycerides 200(H) <=149 mg/dL KRISTINE Comment: Interpretive [...] last revised on 2018. Testing performed by: [address] [address] HDL 50 >=40 mg/dL KRISTINE Comment: Interpretive [...] last revised on 2018. Testing performed by: [address] [address] LDL, calculated 106 <=129 mg/dL KRISTINE MATOS Comment: Interpretive Data Ages [...] last revised on 2024. Testing performed by: [address] [address] Non-HDL Cholesterol 141 mg/dL KRISTINE Comment: Interpretive [...] last revised on 2018. Testing performed by: [address] [address] Chol/HDL ratio 4 KRISTINE Comment:Testing performed by : [address] [address] Blood 11/05/2024 9:20 AM MACHINE GUN MECHANIC 11/05/2024 12:22 PM MACHINE GUN MECHANIC us Joe Roe MD LAB BLOOD ORDERABLES Final Result K[facility]STINE [address] [facility] Department [place] [address] * (ABNORMAL) Comprehensive metabolic panel (11/05/2024 9:20 AM MACHINE GUN MECHANIC) Sodium 139 135 - 145 mmol/L Comment:Testing performed by : [address] [address] Potassium, pl 4.8 3.3 - 4.9 mmol/L KRISTINE Comment:Testing performed by : [address] [address] Chloride 104 97 - 110 mmol/L KRISTINE Comment:Testing performed by : [address] [address] CO2 26 22 - 32 mmol/L KRISTINE Comment:Testing performed by : [address] [address] Anion gap 9 2 - 15 mmol/L KRISTINE Comment:Testing performed by : [address] [address] BUN 24 6 - 25 mg/dL KRISTINE Comment:Testing performed by : [address] [address] Creatinine 1.60(H) 0.80 - 1.30 mg/dL KRISTINE Comment:Testing performed by : [address] [address] Glucose 92 70 - 199 mg/dL KRISTINE [...] was last revised 2022. Testing performed by: [address] [address] Calcium 9.8 8.5 - 10.3 mg/dL KRISTINE Comment:Testing performed by : [address] [address] Bilirubin, total 0.3 0.1 - 1.2 mg/dL KRISTINE Comment:Testing performed by : [address] [address] Protein, pl 7.6 6.5 - 8.5 g/dL KRISTINE Comment:Testing performed by : [address] [address] Albumin 4.4 3.5 - 5.0 g/dL KRISTINE Comment:Testing performed by : [address] [address] Alk phos 56 40 - 130 Units/L KRISTINE Comment:Testing performed by : [address] [address] ALT 14 7 - 55 Units/L KRISTINE Comment:Testing performed by : [address] [address] AST 26 10 - 50 Units/L [facility] Comment:Testing performed by : [address] [address] Blood 11/05/2024 9:20 AM MACHINE GUN MECHANIC 11/05/2024 12:22 PM MACHINE GUN MECHANIC Joe Roe MD LAB BLOOD ORDERABLES Final Result Performing Organization Address City/State/[facility] Co de Phone Number KRISTINE [address] [facility] Department [place] [address] * Colonoscopy (10/27/2020) Anatomical Region Laterality Modality Other Historical Provider ENDOSCOPY PROCEDURES Kyra l Result * US Abdominal Aorta (10/26/2019 10:04 AM MACHINE GUN MECHANIC) Anatomical Region Laterality Modality Abdomen N/A Ultrasound 10/26/2019 12:3 2 PM MACHINE GUN MECHANIC Narrative 10/26/2019 12:34 PM MACHINE GUN MECHANIC Patient Name: JEAN CLAUDE MORALSE Dr: Kevyn Noble PA-C, D.O.B: 1945 Exam Date: 10/26/191003 Age: 74 Sex: Male MR#: [id number] Loc: RADIOLOGY REPORT Order #[id number] Ultrasound US Abdominal Aorta Signed EXAM DESCRIPTION: [...] Moni Fuentes M.D. TB: DWAYNE Report ID: [id number] Reading Location: [id number] REPORT ELECTRONICALLY SIGNED IN OTHER VENDOR SYSTEM Resulting Agency Comment O Procedure Note Moni Fuentes MD - 10/26/2019 Patient Name: JEAN CLAUDE MORALES Celia Dr: Kevyn Noble PA-C, D.O.B: 1945 Exam Date: 10/26/19 100 Age: 74 Sex: Male MR#: [id number] Loc: RADIOLOGY REPORT Order #[id number] Ultrasound US Abdominal Aorta Signed EXAM DESCRIPTION: [...] Moni Fuentes M.D. TB: TB Report ID: [id number] Reading Location: [place] [address] REPORT ELECTRONICALLY SIGNED IN OTHER VENDOR SYSTEM Kevyn FULLER IMG US PROCEDURES Final Result * Hepatitis C antibody (10/18/2019 10:38 AM MACHINE GUN MECHANIC) Hep C Ab NONREACT NONREACTIVE [facility][NOTE 3] Comment: Siemens [email or web address] using MY (chemiluminescent immunoassay) technology. NONREACTIVE: Antibodies [...] method. Blood specimen (specimen) 10/18/2019 10:38 AM MACHINE GUN MECHANIC 10/18/2019 12:43 PM MACHINE GUN MECHANIC Narrative Resulting Agency Comment CLI Kevyn FULLER LAB MICROBIOLOGY - GENERAL ORDFiona [facility] Final Result [place] [address] [place], [place] [id number] [place] [address] from Last 3 Months or Most Recently Relevant to Health Maintenance Insurance MEDICARE MEDICARE [facility] MEDICARE [employer]UE [employer] MEDICARE SUPPLEMENT Care Teams Software Implementation Specialist Relationship Specialty Start Date End Date Vashti Garay NP PCP - General Family Medicine 11/24/24
--- OUTSIDE RECORDS SUMMARY | 2025-01-21 10:00 | XMS_ITS | CONTINUITY OF CARE DOCUMENT ---
Author Name micki, micki Address Unknown Organization [facility] Address [address] [place] [address] Phone [phone] Care Team Providers Care Manager Sign Name Role Phone Juanjo OCONNELL, Charo Unavailable [phone] KEVYN CHAHAL MD Unavailable [phone] CATRACHITA CULP Unavailable [phone] PROBLEMS Condition Status Date Provider Notes ATRIAL [...] L ICA <50% active Charo Geiger MD Hypercholesterolemia active Ibis Hardwick lder status post DC PM [facility] entific/ Gen change DC PM Biotronik 01/17/22 ( NOT MRI SAFE /[facility] Leads) active Raymond Hart Current long-term use of Sotalol active Omaira Donnelly Neuropathy, peripheral active Harjit tucker Hypertension active Clive Quintana Abnormal EKG active Raymond Hart Hypotension active Damian Ahmedzai Foot pain, bilateral active Damian Ahmedzai ENCOUNTERS Date Type Provider Location Encounter Diag nosis - In-person encounter Office Visit Charo Geiger MD [place] [facility] - In-person encounter Office Visit Charo Geiger MD [place] [facility] Foot pain, bilateral - In-person encounter Office Visit Charo Geiger MD [place] [facility] Hypotension - In-person encounter Office Visit Charo Geiger MD [place] [facility] - In-person encounter Office Visit Charo Geiger MD [place] [facility] status post DC PM [facility]/ Gen change DC PM Biotronik 01/17/22 ( NOT MRI SAFE /[facility]) - In-person encounter Office Visit Charo Geiger MD [facility] Office - In-person encounter Office Visit Charo Geiger MD [place] [facility] - In-person encounter Office Visit Charo Geiger MD [place] [facility] Abnormal EKG - In-person encounter Office Visit Charo Geiger MD [place] [facility] Hypertension - In-person encounter Office Visit Charo Geiger MD [place] [facility] status post DC PM [facility]/ Gen change DC PM Biotronik 01/17/22 ( NOT MRI SAFE /[facility]) - In-person encounter Office Visit Charo Pérez Office Neuropathy, peripheral - In-person encounter Office Visit Charo Geiger MD [place] [facility] ATRIAL FIB - 12/13 HOLTER SR, ATRIAL ARRYTHMIA HR 35-90Carotid artery stenosis, L ICA <50%status post DC PM [facility] [employer]/ Gen change DC PM Biotronik 01/17/22 ( NOT MRI SAFE /[facility])Current long-term use of Sotalol - In-person encounter Office Visit Charo Geiger MD [place] [facility] Tobacco use, quitCarotid artery stenosis, L ICA <50%Hypercholesterol emiastatus post DC PM [facility] [employer]/ Gen change DC PM Biotronik 01/17/22 ( NOT MRI SAFE /[facility]) - In-person encounter Office Visit Charo Geiger MD [place] [facility] - In-person encounter Office Visit Charo Geiger MD [place] [facility] Chest pain-type to be determined - In-person encounter Office Visit Charo Geiger MD [place] [facility] - In-person encounter Office Visit Charo Geiger MD [place] [facility] ATRIAL FIB - 12/13 HOLTER SR, ATRIAL ARRYTHMIA HR 35-90SICK SINUS SYNDROME - In-person encounter Office Visit Charo Geiger MD [place] [facility] - In-person encounter Office Visit Charo Geiger MD [place] [facility] ATRIAL FIB - 12/13 HOLTER SR, ATRIAL ARRYTHMIA HR 35-90DIZZINESSFATIGU E VITAL SIGNS Date Observation Value Provider Body Mass Index (Ratio) 25.09 kg/m2 Damian Rodriguez blood pressure, diastolic 87 mm[Hg] Safia Tran blood pressure, systolic 129 mm[Hg] Dona Tran oxygen saturation, oximetry 97 % Krupa Tran pulse rate 69 /min Krupa Tran respiratory rate E&M 12 /min Krupa [...] Body Mass Index (Ratio) 24.68 kg/m2 Damian [facility] blood pressure, cuff size regular Ke rri [...] lder Body Mass Index (Ratio) 24.82 kg/m2 [facility], cuff size large Ke rri [...] Vandana Gresham height E&M 72 [in_i] Vandana Beloitwaqar temperature site temporal Yamile Tank sle temperature E&M 97.3 [degF] Yamile Tanks [place] Body Mass Index (Ratio) 25.77 kg/m2 Kevyn mendoza Avelino blood pressure, cuff size regular Ke rri Edmund blood pressure, diastolic 86 mm[Hg] Ke rri Edmund blood pressure, systolic 120 mm[Hg] Yasir Sahffer oxygen saturation, oximetry 98 % Ibis Shaffer respiratory rate E&M 18 /min Ibis arnett pulse rate 75 /min Ibis melo weight E&M 190 [lb_av] Ibis Hardwick er height E&M 72 [in_i] Ibis Mulu [facility] Body Mass Index (Ratio) 27.26 kg/m2 Will erickson Yesenia Phillips blood pressure, cuff size regular Kr isty Marielle blood pressure, diastolic 82 mm[Hg] Kr isty [place] blood pressure, systolic 136 mm[Hg] Kri adam Marielle oxygen saturation, oximetry 97 % Ruth [place] respiratory rate E&M 17 /min Ruth Palomares pulse rate 75 /min Ruth Palomares weight E&M 201 [lb_av] Ruth Linares height E&M 72 [in_i] Ruth Marielle Body Mass Index (Ratio) 27.53 kg/m2 Mariano Caroberg blood pressure, resting No Mariano chou [facility] blood pressure, cuff size regular Ke rri Brannon blood pressure, diastolic 73 mm[Hg] Ke rri Edmund blood pressure, systolic 111 mm[Hg] Yasir Shaffer oxygen saturation, oximetry 93 % Ibis Shaffer respiratory rate E&M 16 /min Ibis arnett pulse rate 95 /min Ibis Hardwick [facility] weight E&M 203 [lb_av] Ibis Hardwick [facility] height E&M 72 [in_i] Ibis Mulu [facility] Body Mass Index (Ratio) 25.22 kg/m2 [facility] weight E&M 186 [lb_av] Concetta Stuart blood pressure, diastolic 88 mm[Hg] Ak vicky Stuart blood pressure, systolic 137 mm[Hg] Tiffany espinozaa Stuart pulse rate 78 /min Concetta Stuart oxygen saturation, oximetry 98 % Concetta Stuart respiratory rate E&M 16 /min Concetta Stuart blood pressure, diastolic 84 mm[Hg] Me vicky Stuart blood pressure, systolic 129 mm[Hg] Tiffany meagan Stuart Body Mass Index (Ratio) 25.90 kg/m2 [facility] 72 /min Concetta Stuart oxygen [...] TABLET BY MOUTH TWICE A DAY 01/12 Ibis Shaffer sotalol 120 mg tablet completed Take [...] as a smoker 35 a Margarita Driscollr ALL SOURCE COLLECTION MANAGER smoking history, tot al pack/day 1 Margarita Calderóndler ALL SOURCE COLLECTION MANAGER cigarette use yes Margarita Lay er ALL SOURCE COLLECTION MANAGER passive cigarette sm paula exposure yes Margarita Calderóndler ALL SOURCE COLLECTION MANAGER smoking status Former smoker Margarita Stephane dler ALL SOURCE COLLECTION MANAGER social history E&M Marital Statu s: C [...] Robertstera smoking status Former smoker [facility]bis Roberts [facility] number of grandchildren Charo Phillips social [...] History: P atient is a former smoker. hCaro Geiger MD social history reviewed E&M revi ewed - no changes required Charo Geiger MD alcohol use no Concetta Stuart drug use none Concetta Stuart passive cigarette sm paula exposure yes Concetta Stuart smoking status Former smoker Concetta najera social history reviewed E&M revi ewed - no changes required Charo Geiger MD drug use none Concetta Stuart passive [...] Payer name Policy type / Coverage type [place] red democrat ID [facility] [id number] [place] Medicare [id number] ADVANCE DIRECTIVES Name Date DISCUSSED - NO DECISION MADE TREATMENT PLAN Date Name Performer [id number],C,p ostural dizziness and hypotension B P stable today Discussion of benefits for remote patient monitoring took place. Patient gives consent for remote monitoring of physiologic parameters including, but not limited to, weight, blood pressure, pulse oximetry, respiratory flow rate. Margarita Tapia NP [id number],C, carotids mild plaque, <50%. will recheck carotids 08/2023 Margarita Tapia NP [id number],C, H is updated medication list for this problem includes: Atorvastatin 40 Mg Tablet (Atorvastatin) ..... Take 1 tablet by mouth once a day Margarita Tapia NP [id number],C,l ast 0% AF, RA pacing 99, RV 1%, no significant arrhythmias Margarita Tapia NP [id number],C,t ricki 130/80 Discussion of benefits for remote patient monitoring took place. Patient gives consent for remote monitoring of physiologic parameters including, but not limited to, weight, blood pressure, pulse oximetry, respiratory flow rate. Margarita Tapia NP [id number],C,A T/AF [place]: 0.0% Damian Rodriguez [id number],C,A T/AF [place]: 0.0% % Pacing: RA - 91.0% RV - 0.0% n ormal function [facility] [id number],C,[facility] [id number],C,No CP [facility] [id number],C, B P today: 120/88 P rior BP: 112/76 (01/04/2022) Labs Reviewed: C reat: 1.20 (08/24/2013) [facility] [id number],C, H is updated medication list for this problem includes: Atorvastatin 40 Mg Tablet (Atorvastatin) ..... Take 1 tablet by mouth once a day [facility] [id number],B, s atisfactory function i ncision healing well Orders: Kira guzman No Charge (CPT-39862) Raymond Hart [id number],C, S /p gen change on 01/17/22. Pt. has been having some pain at incision site for the last few days. Sent in refill. Aware patient is already on medication for neuropathy. Ricardo Perea [id number],S, H is updated medication list for this problem includes: Sotalol 120 Mg Tablet (Sotalol) ..... 0.5 tablet twice a day Stacy Maldonado ALL SOURCE COLLECTION MANAGER [id number],B, Stacy del real ALL SOURCE COLLECTION MANAGER [id number],S,per PCP Claudia Maldonado ALL SOURCE COLLECTION MANAGER [id number],S, Stacy del real ALL SOURCE COLLECTION MANAGER [id number],S,c ontrolled His updated medication list for this problem includes: Sotalol 120 Mg Tablet (Sotalol) ..... 0.5 tablet twice a day Hydrochlorothiazide 12.5 Mg Capsule (Hydrochlorothiazide) ..... Take 1 tablet once a day Stacy Maldonado ALL SOURCE COLLECTION MANAGER [id number],W,w ill schedule battery change as device is at [place]. Stacy Maldonado ALL SOURCE COLLECTION MANAGER Electrophysiology:[place] is MRI safe, normal function Damian Electrophysiology:Chandes CP or SOB. His updated medication list for this problem includes: Cilostazol 100 Mg Tablet (Cilostazol) Sotalol 80 Mg Tablet (Sotalol) ..... 1/2 tablet twice a day [facility] Electrophysiology: H is updated medication list for this problem includes: Atorvastatin 40 Mg Tablet (Atorvastatin) ..... Take 1 tablet by mouth once a day [facility] Electrophysiology:Th is visit has been a part of the consistent, comprehensive, and ongoing management of the chronic medical condition(s) listed above for the patient. BP today: 129/87 P rior BP: 133/92 (11/14/2023) Labs Reviewed: C reat: 1.20 (08/24/2013) His updated medication list for this problem includes: Sotalol 80 Mg Tablet (Sotalol) ..... 1/2 tablet twice a day [facility] Electrophysiology:ze ro AF burden from remote device check H is updated medication list for this problem includes: Cilostazol 100 Mg Tablet (Cilostazol) Sotalol 80 Mg Tablet (Sotalol) ..... 1/2 tablet twice a day [facility] Electrophysiology: O rders: A rterial Duplex Bi-Lower EX (CPT-21394) A rterial - SENSILASE (CPT-43154) 9 9215 HIGH 40-54min (CPT-33599) [facility] Electrophysiology: H is updated medication list for this problem includes: Atorvastatin 40 Mg Tablet (Atorvastatin) ..... Take 1 tablet by mouth once a day [facility] Electrophysiology: B P today: 133/92 P rior BP: 130/80 (05/02/2023) Labs Reviewed: C reat: 1.20 (08/24/2013) His updated medication list for this problem includes: Sotalol 80 Mg Tablet (Sotalol) ..... 1/2 tablet twice a day [facility] Elect[facility]: H is updated medication list for this problem includes: Cilostazol 100 Mg Tablet (Cilostazol) Sotalol 80 Mg Tablet (Sotalol) ..... 1/2 tablet twice a day [facility] Electrophysiology:no rmal function A T/AF [place]: 0.0% % Pacing: RA - 99.0% RV - 0.0% [facility] Electrophysiology: H is updated medication list for this problem includes: Cilostazol 100 Mg Tablet (Cilostazol) Sotalol 80 Mg Tablet (Sotalol) ..... 1/2 tablet twice a day [facility] Electrophysiology [facility] Electrophysiology:po stural dizziness and hypotension B P [...] flow rate. Margarita Tapia NP Electrophysiology:AT /AF [place]: 0.0% [facility] Electrophysiology:AT /AF [place]: 0.0% % Pacing: RA - 91.0% RV [...] healing well Orders: G megan No Charge (CPT-37039) Raymond Hart Telehealth: S /p gen change [...] One tab. daily Orders: S tress Regadenoson (CPT-21501) Raymond Hart Electrophysiology Fo llow up : [...] up : O rders: S cristino Dunhamosnena (CPT-10815) His updated medication list for this problem [...] Quintana Cardiology: O rders: C omplete Echo (CPT-56999) C arotid Duplex Bilateral (CPT-39007) C OMPREHENSIVE METABOLIC PANEL, W/EGFR (71799) L IPID PANEL (3320) T HYROID PANEL (7920) M AGNESIUM (622) Clive Quintana Cardiology: H is updated medication list for this problem includes: Aspirin 81 Mg Oral Tablet (Aspirin) ..... One tab. daily Sotalol Hcl 120 Mg Oral Tablet (Sotalol hcl) ..... Half tablet twice daily Clive Mariano Cardiology: O rders: C omplete Echo (CPT-40969) C arotid Duplex Bilateral (CPT-26517) C OMPREHENSIVE METABOLIC PANEL, W/EGFR (23965) L IPID PANEL (7600) T HYROID PANEL (7020) M AGNESIUM (622) Clive Quintana Electrophysiology Fo llow up : L ast remote check 09/28/18 showed 0% AT/AF burden. R emains on Sotalol. O nly on ASA for AC. C [id number] score is 2. Check echo doppler in 1-2 weeks to reassess atrial sizes and LV function. Orders: 9 9215 HIGH Complex (CPT-54078) S chedule Followup (*) C omplete Echo (CPT-21662) His updated medication list for this problem [...] up faxed 11/25/16:Orders: C arotid Duplex Bilateral (CPT-07434) Artem Donnelly Cardiology Follow up faxed 11/25/16:His updated medication list for this problem includes: Atorvastatin Calcium Tabs (Atorvastatin calcium tabs) ..... Once daily [facility]iology Follow up faxed :No recurrence. [facility]iology Follow up faxed 11/25/16:Orders: C OMPREHENSIVE METABOLIC PANEL W/EGFR (84447) C BC (INCLUDES DIFF/PLT) (6399) T HYROID PANEL WITH TSH, 3RD GENERATION (7444) L IPID PANEL (7600) M AGNESIUM (622) Artem [facility] Cardiology Follow up faxed 11/25/16:His updated medication list for this problem includes: Aspirin 81 Mg Tabs (Aspirin) ..... One tab. daily Sotalol Hcl 120 Mg Tabs (Sotalol hcl) ..... Half tablet twice daily Orders: E KG (CPT-75883) Artem Donnelly EP faxed 10/16/15:Ord ers: C arotid Duplex Bilateral (CPT-86612) Charo Geiger MD EP faxed 10/16/15:Polly ds2-score [...] Charo Geiger MD INTERROGATION REMOTE </90 D LUSTER REPAIRER REVIEW completed Pacemaker Interrogation, Remote (Prof) Charo Geiger MD INTERROGATION EVAL REMOTE </90 D 1/2/LOSS PREVENTION REPRESENTATIVE LEAD P completed ICM Interrogation, Remote (Prof) [...] Saulius Kalvaitis MD INTERROGATION REMOTE </90 D LUSTER REPAIRER REVIEW completed Pacemaker Interrogation, Remote (Prof) Saulius Kalvaitis MD INTERROGATION EVAL REMOTE </90 D 1/2/LOSS PREVENTION REPRESENTATIVE LEAD P completed ICM Interrogation, Remote (Prof) [...] Saulius Kalvaitis MD INTERROGATION REMOTE </90 D LUSTER REPAIRER REVIEW completed Pacemaker Interrogation, Remote (Prof) Saulius Kalvaitis MD INTERROGATION EVAL REMOTE </90 D 1/2/LOSS PREVENTION REPRESENTATIVE LEAD P completed ICM Interrogation, Remote (Prof) [...] Saulius Kalvaitis MD INTERROGATION REMOTE </90 D LUSTER REPAIRER REVIEW completed Pacemaker Interrogation, Remote (Prof) Saulius Kalvaitis MD INTERROGATION EVAL REMOTE </90 D 1/2/LOSS PREVENTION REPRESENTATIVE LEAD P completed ICM Interrogation, Remote (Prof) [...] Saulius Kalvaitis MD INTERROGATION REMOTE </90 D LUSTER REPAIRER REVIEW completed Pacemaker Interrogation, Remote (Prof) Saulius Kalvaitis MD INTERROGATION EVAL REMOTE </90 D 1/2/LOSS PREVENTION REPRESENTATIVE LEAD P completed EKG Charo sabillon MD [...] Saulius Kalvaitis MD INTERROGATION REMOTE </90 D LUSTER REPAIRER REVIEW completed Pacemaker Interrogation, Remote (Prof) Saulius Shreyasvaitis MD INTERROGATION EVAL REMOTE </90 D 1/2/LOSS PREVENTION REPRESENTATIVE LEAD P completed ICM Interrogation, Remote (Prof) [...] (Tech) Saulius Sandroitis INTERROGATION REMOTE </90 D LUSTER REPAIRER REVIEW completed Pacemaker Interrogation, Remote (Prof) Saulius Juanjo OCONNELL INTERROGATION EVAL REMOTE </90 D 1/2/LOSS PREVENTION REPRESENTATIVE LEAD P completed ICM Interrogation, Remote (Prof) Sacrystal Geiger MD INTERROGATION EVAL REMOTE </30 D CV MNTR SYS completed ICM Interrogation, Remote (Tech) Charo Geiger MD INTERROGATION EVAL REMOTE </30 D TECH REVIEW completed EKG Charo sabillon MD completed SNOMED-CT: [id number] Current Medications Documented Charo Geiger MD completed [...] Charo Geiger MD INTERROGATION REMOTE </90 D LUSTER REPAIRER REVIEW completed Pacemaker Interrogation, Remote (Prof) Charo Geiger MD INTERROGATION EVAL REMOTE </90 D 1/2/LOSS PREVENTION REPRESENTATIVE LEAD P completed ICM Interrogation, Remote (Prof) [...] Saulius Kalvaitis MD INTERROGATION REMOTE </90 D LUSTER REPAIRER REVIEW completed Pacemaker Interrogation, Remote (Prof) Saulius Kalvaitis MD INTERROGATION EVAL REMOTE </90 D 1/2/LOSS PREVENTION REPRESENTATIVE LEAD P completed ICM Interrogation, Remote (Prof) [...] Saulius Kalvaitis MD INTERROGATION REMOTE </90 D LUSTER REPAIRER REVIEW completed Pacemaker Interrogation, Remote (Prof) Saulius Kalvaitis MD INTERROGATION EVAL REMOTE </90 D 1/2/LOSS PREVENTION REPRESENTATIVE LEAD P completed ICM Interrogation, Remote (Prof) [...] Charo Geiger MD INTERROGATION REMOTE </90 D LUSTER REPAIRER REVIEW completed Pacemaker Interrogation, Remote (Prof) Charo Geiger MD INTERROGATION EVAL REMOTE </90 D 1/2/LOSS PREVENTION REPRESENTATIVE LEAD P completed Schedule Followup Charo balderrama MD 1 year completed SNOMED-CT: [id number] Smoking Cessation Counseling Charo Geiger MD completed EKG Charo sabillon MD completed SNOMED-CT: [id number] Current Medications Documented Charo Geiger MD completed [...] Charo Geiger MD INTERROGATION REMOTE </90 D LUSTER REPAIRER REVIEW completed Pacemaker Interrogation, Remote (Prof) Saulius Kalvaitis MD INTERROGATION EVAL REMOTE </90 D 1/2/LOSS PREVENTION REPRESENTATIVE LEAD P completed ICM Interrogation, Remote (Prof) [...] Saulius Kalvaitis MD INTERROGATION REMOTE </90 D LUSTER REPAIRER REVIEW completed Pacemaker Interrogation, Remote (Prof) Saulius Kalvaitis MD INTERROGATION EVAL REMOTE </90 D 1/2/LOSS PREVENTION REPRESENTATIVE LEAD P completed ICM Interrogation, Remote (Prof) [...] Charo Geiger MD INTERROGATION REMOTE </90 D LUSTER REPAIRER REVIEW completed Pacemaker Interrogation, Remote (Prof) Saulius Geiger MD INTERROGATION EVAL REMOTE </90 D 1/2/LOSS PREVENTION REPRESENTATIVE LEAD P completed ICM Interrogation, Remote (Prof) [...] Charo Geiger MD INTERROGATION REMOTE </90 D LUSTER REPAIRER REVIEW completed Pacemaker Interrogation, Remote (Prof) Charo Geiger MD INTERROGATION EVAL REMOTE </90 D 1/2/LOSS PREVENTION REPRESENTATIVE LEAD P completed ICM Interrogation, Remote (Prof) [...] Saulius Joitis MD INTERROGATION REMOTE </90 D LUSTER REPAIRER REVIEW completed Pacemaker Interrogation, Remote (Prof) Saulius Juanjo MD INTERROGATION EVAL REMOTE </90 D 1/2/LOSS PREVENTION REPRESENTATIVE LEAD P completed ICM Interrogation, Remote (Prof) [...] Sacrystal Geiger MD INTERROGATION REMOTE </90 D LUSTER REPAIRER REVIEW completed Pacemaker Interrogation, Remote (Prof) Sacrystal Geiger MD INTERROGATION EVAL REMOTE </90 D 1/2/LOSS PREVENTION REPRESENTATIVE LEAD P completed ICM Interrogation, Remote (Prof) [...] Charo sabillon MD completed EKG Stacy Underwood ALL SOURCE COLLECTION MANAGER complet ed ePrescribe - Check t his box if eRx is used Charo Geiger MD completed Schedule Followup Charo balderrama MD fu with sk in 3 1/2 months completed EKG Charo sabillon MD completed Schedule Followup Charo balderrama MD fu in 2 week completed EKG Charo sabillon MD completed
== END 2025-01-21 09:55 | disposition home or self-care (01) ==
PROVIDERS: PCP Nurse Practitioner; Visit Provider Nurse Practitioner
DX: K21.9 Gastro-esophageal reflux disease without esophagitis (principal); K44.9 Diaphragmatic hernia without obstruction or gangrene; R13.10 Dysphagia, unspecified
CPT/HCPCS: 74246

== ENCOUNTER 2025-02-28 11:46 | Outpatient (CLI) | payer MEDICARE, SELFPAY ==
--- NOTE | ~2025-02-28 | XR_ITS ---
Supine and upright views of the abdomen Clinical history: Left renal stone COMPARISON: 12/04/2023 Findings: Bowel gas pattern is nonspecific. No evidence for obstruction or free air. Probable stable right renal stones measuring up to 7 mm. Probable small left renal stones, unchanged. Stable coarse c alcifications in the epigastric region. Osseous structures are intact. Impression: Bilateral nephrolithiasis, probably without significant change. Stable coarse calcifications in the epigastric region. Reviewed, dictated and finalized at location . Impression: Bilateral nephrolithiasis, probably without significant change. Stable coarse calcifications in the epigastric region.
--- OUTSIDE RECORDS SUMMARY | 2025-02-28 12:01 | XMS_ITS ---
Author Organization 1 OF Eddie [facility] Address [address] [place] [address] Care Team Providers Care Fishing Game Warden Name Role Phone Kevyn Noble PA-C Primary Care Provider Gianfranco Murdock Unavailable Allergies No Known Allergies REASON FOR VISIT f/u LT heel wound / infection Medications Medication SIG (Take, Route, Frequency, Duration) Notes Start Date End Date Status Famotidine 40 MG Oral; Duration: 90 Active Atorvastatin Calcium 40 MG Oral; Duration: 90 Active Tamsulosin HCl 0.4 MG Oral; Duration: 90 Active Pantoprazole Sodium 40 MG TAKE 1 TABLET BY MOUTH EVERY DAY Oral; Duration: 90 Active HYDROcodone-Acetaminophen 7.5-325 MG Oral; Duration: 26 Active traZODone HCl 100 MG Oral; Duration: 90 Active Magnesium Oxide 400 (240 Mg) MG TAKE 1 TABLET (400 MG TOTAL) BY MOUTH 2 TIMES A DAY Oral; Duration: 90 Active Sotalol HCl 120 MG Oral; Duration: 90 Active Finasteride 5 MG Oral; Duration: 90 Active Vicodin Active Dicyclomine HCl Acti ve Aspirin 81 Active Multiple Vitamin Act maira Vitamin D-3 Active Mupirocin 2 % apply to affected ar ea Externally apply with every dressing change at least every other day 04/01/2024 Active Sertraline HCl Activ e Vital Signs Weight 184 lbs 04/09/2024 Height 72 in 04/09/2024 BMI 24.95 kg/m2 04/09/2024 Encounters Encounter Location Date Provider Diagnosis [facility] [address] [place] [address] 04/09/2024 Gianfranco Lemon 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 f/u LT heel wound / infection. * HPI: M A assisting with visit:: HPI/Rooming: Ryan. Melyssa reason [...] Plan: * Treatment: * Follow Up: p rn * Images: * Electronic signature of Marily Lemon DPM on 02/28/2025 at 12:01 PM CDT Sign off status: Pending * Provider: [facility] Date: 0 04/09/2024 Generated for Printi ng/Faalexiag/eTransmitting on: 0 02/28/2025 12:01 PM CDT History and Physical Notes * HPI [...]
--- OUTSIDE RECORDS SUMMARY | 2025-02-28 12:01 | XMS_ITS ---
Author Organization [address] [facility] Address [address] [place] [address] Care Team Providers Care Delicatessen Goods Stock Clerk Name Role Phone Kevyn Noble PA-C Primary Care Provider Gianfranco Murdock Unavailable Allergies No Known Allergies REASON FOR VISIT f/u abscess RT foot Medications Medication SIG (Take, Route, Frequency, Duration) Notes Start Date End Date Status Magnesium Oxide 400 (240 Mg) MG TAKE 1 TABLET (400 MG TOTAL) BY MOUTH 2 TIMES A DAY Oral; Duration: 90 Unknown Sotalol HCl 120 MG Oral; Duration: 90 Unknown HYDROcodone-Acetaminophen 7.5-325 MG Oral; Duration: 26 Unknown Vitamin D-3 Unknown Aspirin 81 Unknown Sertraline HCl Unkno wn Vicodin Unknown Dicyclomine HCl Unkn own Multiple Vitamin Unk nown Augmentin 875-125 MG 1 tablet Orally jozef ry 12 hrs; Duration: 14 days 03/26/2024 Unknown Mupirocin 2 % apply to affected ar ea Externally apply with every dressing change at least every other day 04/01/2024 Active Tamsulosin HCl 0.4 MG Oral; Duration: 90 Unknown Famotidine 40 MG Oral; Duration: 90 Unknown Atorvastatin Calcium 40 MG Oral; Duration: 90 Unknown Pantoprazole Sodium 40 MG TAKE 1 TABLET BY MOUTH EVERY DAY Oral; Duration: 90 Unknown traZODone HCl 100 MG Oral; Duration: 90 Unknown Finasteride 5 MG Oral; Duration: 90 Unknown Problems Problem Type SNOMED Code ICD Code Onset Dates Problem Status W/U Status Risk Notes Problem Skin ulcer of left heel with fat layer exposed (L97.422) Active confirmed Vital Signs Weight 184 lbs 04/01/2024 Height 72 in 04/01/2024 BMI 24.95 kg/m2 04/01/2024 Encounters Encounter Location Date Provider Diagnosis 1 OF Eddie Lemon DPM [facility] [address] [address] 04/01/2024 Gianfranco Lemon 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 f/u abscess RT foot. * HPI: Vernon Lutz assisting with visit:: HPI/Rooming: Vernon sandra. Melyssa graciabenwood reason for visit:: 79 year old male [...] DPM Date: 0 04/01/2024 Generated for Mina fofana/Yakov/Florinda on: 0 02/28/2025 12:01 PM CDT History [...] 4/10 with WB and 0/10 when NWB. MA assisting with visit: HPI/Rooming: Lucita Examination Category [...]
--- OUTSIDE RECORDS SUMMARY | 2025-02-28 12:01 | XMS_ITS | Encounter Summary ---
Author Organization [facility] Facility Care Team Providers Care Dividend Clerk Name Role Phone Kevyn Noble Primary Care Provider [phone] Vashti Garay NP Primary Care Provider [phone] Encounter Details Date Type Department Care Team (Latest Contact Info) Description 10/16/2018 Orders Only [facility] ProviderSimi MD [address] [place] [address] Social History Tobacco Use Types Packs/Day Years Used Date Smoking Tobacco: Never Assessed Sex and Gender Information Value Date Recorded Sex Assigned at Not on file Legal Sex Male 6:39 AM HOUSEFELLOW Gender Identity Male 10/22/2021 9:05 AM HOUSEFELLOW Sexual Orientation Not on file documented as of this encounter Plan of Treatment Not on file documented as of this encounter Procedures Procedure Name Priority Date/Time Associated Diagnosis Comments PROCEDURE - RESULT 10/16/2018 12 :00 AM HOUSEFELLOW documented in this encounter Results * PROCEDURE - RESULT (10/16/2018 12:00 AM HOUSEFELLOW) Narrative 10/16/2018 12:00 AM HOUSEFELLOW Ordered by an unspecified provider. Historical Provider Final Res ult documented in this encounter Visit Diagnoses Not on filedocumented in this encounter Care Teams Dividend Clerk Relationship Specialty Start Date End Date Kevyn Noble PA PCP - General 10/19/18 09/08/23 Vashti Garay NP PCP - General Family Medicine 11/24/24 documented as of this encounter
--- OUTSIDE RECORDS SUMMARY | 2025-02-28 12:01 | XMS_ITS | Encounter Summary ---
Author Organization [facility] Facility Care Team Providers Care Manager Of Sustainability Name Role Phone Kevyn Noble Primary Care Provider [phone] Vashti Garay NP Primary Care Provider [phone] Encounter Details Date Type Department Care Team (Latest Contact Info) Description 07/14/2013 Orders Only [facility]INCON[facility] ProviderSimi MD [address] [place] [address] Social History Tobacco Use Types Packs/Day Years Used Date Smoking Tobacco: Never Assessed Sex and Gender Information Value Date Recorded Sex Assigned at Not on file Legal Sex Male 6:39 AM CONDUIT BENDER Gender Identity Male 10/22/2021 9:05 AM CONDUIT BENDER Sexual Orientation Not on file documented as [...] on filedocumented in this encounter Care Teams Manager Of Sustainability Relationship Specialty Start Date End Date Kevyn Noble PA PCP - General 10/19/18 09/08/23 Vashti Garay NP PCP - General Family Medicine 11/24/24 documented as of this encounter
--- OUTSIDE RECORDS SUMMARY | 2025-02-28 12:02 | XMS_ITS | Encounter Summary ---
Author Organization [facility] Address [address] [place] [address] Care Team Providers Care Product Inspection Supervisor Name Role Phone Vashti Garay CUSTOMER SERVICE ANALYST Primary Care Provider [phone] Encounter Details Date Type Department Care Team (Late st Contact Info) Description 12/30/2024 Results Follow-Up [facility] Family Medicine at [address] [place] [address] Vashti Garay, OSCAR [address] [place] [address] [address] [place] [address] Vitamin B12, Folate, CBC with [...] on file Legal Sex Male 6:39 AM SOIL TESTER Gender Identity Male 10/22/2021 9:05 AM SOIL TESTER Sexual Orientation Not on file documented as of this encounter Plan of Treatment Not on file documented as of this encounter Visit Diagnoses Not on filedocumented in this encounter Care Teams Product Inspection Supervisor Relationship Specialty Start Date End Date Vashti Garay NP PCP - General Family Medicine 11/24/24 documented as of this encounter
--- OUTSIDE RECORDS SUMMARY | 2025-02-28 12:02 | XMS_ITS | Clinical Summary ---
Author Organization [facility] at the Medical Office Building Address [address] [place] [id number] Care Team Providers Care Detective Private Eye Name Role Phone Tanisha Vashti MOORE Primary Care Provider [phone] Allergies No known active allergies Medications MULTIVITAMIN [...] (81 mg total) by mouth daily Active sotaloL (BETAPACE) 80 mg tablet Take 0.5 tablets (40 mg total) by mouth 2 (two) times a day 90 tablet 3 04/20/20 24 Active traZODone (DESYREL) 100 mg tablet Take 1 tablet (100 mg total) by mouth nightly 90 tablet 3 04/20/20 24 Active cilostazoL (PLETAL) 100 mg tablet cilostazol [...] (30 mg total) by mouth daily Active sertraline (ZOLOFT) 100 mg tabletIndicatio ns:RESHMA (generalized anxiety disorder) Take 1 tablet (100 mg total) by mouth daily 90 tablet 1 02/03/20 25 Active atorvastatin (LIPITOR) 40 mg tablet Take 1 tablet (40 mg total) by mouth daily 90 tablet 3 02/03/20 25 Active finasteride (PROSCAR) 5 mg tablet Take 1 tablet (5 mg total) by mouth daily 90 tablet 3 02/03/20 25 Active HYDROcodone-kwame taminophen (NORCO) 10-325 mg per tabletIndicatio ns:Pain Take 1 tablet by mouth every 6 (six) hours as needed for pain 120 tablet 02/26/20 25 Active finasteride (PROSCAR) 5 mg tablet Take 1 tablet (5 mg total) by mouth daily 90 tablet 3 12/26/19 24 025 Discontin ued(Reord er) sertraline (ZOLOFT) 100 mg tabletIndicatio ns:Anxiety with depression TAKE 1 TABLET BY MOUTH EVERY DAY 90 tablet 1 09/03/19 25 025 Discontin ued(Reord er) atorvastatin (LIPITOR) 40 mg tablet Take 1 tablet (40 mg total) by mouth daily 90 tablet 1 09/03/19 25 025 Discontin ued(Reord er) oxyCODONE ER (OxyCONTIN) 10 mg 12 hr abuse-deterrent tablet Take 1 tablet (10 mg total) by mouth 2 (two) times a day 60 tablet 01/20/20 25 025 Discontin ued(Thera py completed ) oxyCODONE (ROXICODONE) 5 mg immediate release tabletIndicatio ns:Pain Take 1 tablet (5 mg total) by mouth every 8 (eight) hours as needed for pain 90 tablet 01/28/20 025 Discontin ued(Thera py completed ) Active Problems Problem Noted Date Diagnosed Date Pain of left thumb 02/02/2025 GERD (gastroesophageal reflux disease) 5 Foot pain, [...] 01/21/2020 Assessment & Plan (07/29/2023 3:39 PM TEXTILE COATING MACHINE OPERATOR): This is a stable chronic condition. Monitor [...] routine Assessment & Plan (09/30/2022 4:18 PM TEXTILE COATING MACHINE OPERATOR): Images from the original note were not [...] consider Assessment & Plan (07/29/2023 3:39 PM TEXTILE COATING MACHINE OPERATOR): This is diet controlled Assessment & Plan (03/19/2023 9:34 AM CDT): Currently controlled with diet will continue to follow Assessment & Plan (02/05/2023 2:05 PM CDT): Diet controlled Assessment & Plan (11/14/2022 9:20 AM CDT): controlled Assessment & Plan (09/30/2022 4:18 PM TEXTILE COATING MACHINE OPERATOR): Diet controlled Assessment & Plan (05/15/2022 11:44 AM CDT): Controlled with diet Assessment & Plan (04/09/2022 4:32 PM CDT): Diet and fiber Assessment & Plan (11/07/2021 1:51 PM TEXTILE COATING MACHINE OPERATOR): Diet controlled Assessment & Plan (04/18/2020 9:57 AM CDT): This is currently controlled with diet will continue to follow BMI 26.0-26.9,adult 06/11/2018 Assessment & Plan (10/19/2020 9:59 AM TEXTILE COATING MACHINE OPERATOR): Healthy diet Benign prostatic hyperplasia 03/30/2018 Assessment & Plan (04/09/2022 4:32 PM CDT): Well controlled Assessment & Plan (04/24/2021 10:03 AM CDT): Stable and continue meds Assessment & Plan (10/19/2020 9:58 AM TEXTILE COATING MACHINE OPERATOR): Controlled with meds Assessment & Plan (04/18/2020 [...] 03/30/2018 Assessment & Plan (07/29/2023 3:39 PM TEXTILE COATING MACHINE OPERATOR): Patient is to continue present medications, work [...] routine. Assessment & Plan (09/30/2022 4:18 PM TEXTILE COATING MACHINE OPERATOR): Patient is to continue present medications, work [...] routine. Assessment & Plan (10/19/2020 9:58 AM TEXTILE COATING MACHINE OPERATOR): Patient is to continue present medications, work [...] office. Follow up routine. Sick sinus syndrome (CMS/[facility]) 03/30/2018 Overview (02/15/2019): seeing cardiology, has pace maker Assessment & Plan (02/05/2023 2:05 PM CDT): Stable and seeing cardiology Assessment & Plan (05/15/2022 11:46 AM CDT): Patient is stable and had pace maker Assessment & Plan (04/09/2022 4:33 PM CDT): Stable seeing cardiology Assessment & Plan (11/07/2021 1:51 PM TEXTILE COATING MACHINE OPERATOR): Seeing cardiology Assessment & Plan (04/24/2021 10:04 AM CDT): Cardiology following Assessment & Plan (10/19/2020 9:58 AM TEXTILE COATING MACHINE OPERATOR): Seeing cardiology and doing well Assessment & Plan (04/18/2020 9:58 AM CDT): Patient is asymptomatic and followed by cardiology and on a baby aspirin Assessment & Plan (12/27/2019 10:32 AM CDT): Has pacemaker, seeing Cardiology 20 january Assessment & Plan (12/13/2019 10:20 AM CDT): Patient has a pacemaker and he is asymptomatic in clinic today I have a message out to his attendant lodging facilities and I am faxing over the EKG [...] 11/14/2017 Assessment & Plan (07/29/2023 3:40 PM TEXTILE COATING MACHINE OPERATOR): Patient is very legitimate and has had a really hard time with this and I see no reason to even try to taper as is the only thing that gives him relief. My collaborating partner is moving away from rn long term care pain management therefore I also have to [...] ordered Assessment & Plan (09/30/2022 4:19 PM TEXTILE COATING MACHINE OPERATOR): This is chronic, exhausted everything Patient and [...] neurology Assessment & Plan (11/07/2021 1:51 PM TEXTILE COATING MACHINE OPERATOR): Chronic ongoing Assessment & Plan (12/28/2020 3:31 [...] 10/13/2015 Assessment & Plan (11/07/2021 1:51 PM TEXTILE COATING MACHINE OPERATOR): Patient is to continue present medications, work [...] 11/24/2024 Assessment & Plan (10/19/2020 10:05 AM TEXTILE COATING MACHINE OPERATOR): Currently not an issue, if this becomes [...] neuropathy Assessment & Plan (10/19/2020 9:58 AM TEXTILE COATING MACHINE OPERATOR): Taking as needed medical marijuna, not daily, [...] depression Assessment & Plan (10/19/2020 9:58 AM TEXTILE COATING MACHINE OPERATOR): No depression Assessment & Plan (04/18/2020 9:57 [...] DDD Assessment & Plan (09/30/2022 4:19 PM TEXTILE COATING MACHINE OPERATOR): Patient and I had a discussion about [...] meds Assessment & Plan (11/07/2021 1:50 PM TEXTILE COATING MACHINE OPERATOR): This is chronic, he failed PY, did [...] and wished to continue current treatment. Other rn long term care (current) drug therapy 11/01/2016 11/24/2024 Chest pain 03/11/2014 11/24/2024 Dizziness 04/30/2013 11/24/2024 Fatigue 04/30/2013 11/24/2024 Encounters Date Type Department Care Team Description 02/02/2025 10:30 AM CDT Office Visit [facility] Family Medicine at [address] [place] [address] Vashti Garay NP Other polyneuropathy (Primary Dx); RESHMA (generalized anxiety disorder); Benign prostatic hyperplasia without lower urinary tract symptoms; Mixed hyperlipidemia; Healthcare maintenance; Need for hepatitis B screening test; Screening for prostate cancer; Bilateral thumb pain 01/27/2025 Orders Only [facility] Family Medicine at [address] [place] [address] Vashti Garay NP Other polyneuropathy (Primary Dx); Lumbar radiculopathy 01/26/2025 Telephone [facility] Family Medicine at [address] [address] Vashti Garay NP 01/19/2025 Orders Only [facility] Family Medicine at [address] [phone] Vashti Garay NP Other chronic pain 12/30/2024 Results Follow-Up [facility] Family Medicine at [address] [phone] Vashti Garay NP Vitamin B12, Folate, CBC with auto differential, Additional followed-up results: 2 12/30/2024 Results Follow-Up [facility] at [address] [phone] Vashti Garay NP XR Spine Lumbar 6 or More Views 12/28/2024 10:45 AM CDT Lab [facility] Medical Office Bldg [address] [place] [id number] Other polyneuropathy; Nutritional anemia, unspecified 12/28/2024 10:23 AM CDT - 12/28/2024 11:59 PM CDT Hospital Encounter [facility] [address] [place] [id number] Other polyneuropathy; Nutritional anemia, unspecified; Lumbar radiculopathy Discharge Disposition: Discharge to home or self care 12/22/2024 11:30 AM CDT Office Visit [facility] at [address] [phone] Vashti Garay NP Other polyneuropathy (Primary Dx); Nutritional anemia, unspecified; Lumbar radiculopathy; 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 pain 12/17/2024 Results Follow-Up [facility] Family Medicine at [address] [place] [phone] Vashti Garay NP GI - RESULT 12/14/2024 Orders Only [facility] Health Information Management [address] [place] [address] Vashti Garay NP from Last 3 Months Immunizations Immunization Administration [...] Nikhil Cancer Father Donato Heart disease Father Doanto Hypertension Father Donato Cancer Mother Marsha Colon [...] you have a drink containing alcohol? Never 02/02/2025 Q2: How many drinks containi ng alcohol do you have on a typical day when you are drinking? Patient does not drink Q3: How often do you have si x or more drinks on one occasion? Never 02/02/2025 PHQ-2 Answer Date Recorded PHQ-2 Total Score [...] on file Legal Sex Male 6:39 AM TEXTILE COATING MACHINE OPERATOR Gender Identity Male 10/22/2021 9:05 AM TEXTILE COATING MACHINE OPERATOR Sexual Orientation Not on file Obstetrics History Last Filed Vital Signs Vital Sign Reading Time Taken Comments Blood Pressure 112/78 02/02/2025 10:29 AM CDT Pulse 69 02/02/2025 10:29 AM CDT Temperature 36.3 C (97.4 F) 02/02/2025 10:29 AM CDT Respiratory Rate 18 02/02/2025 10:29 AM CDT Oxygen Saturation 97% 02/02/2025 10:29 AM CDT Inhaled Oxygen Concentration - - Weight 82.2 kg (181 lb 3.2 oz) 02/02/2025 10:29 AM CDT Height 182.9 cm (6') 02/02/2025 10:29 AM CDT Body Mass Index 24.58 02/02/2025 10:29 AM CDT Plan of Treatment Health Maintenance Due Date Last Done Comments Hepatitis B Screening 1963 Depression Screening 06/16/2025 06/16/2024, 06/16/2024, 09/26/2023, Additional history exists Fall Risk Assessment 06/16/2025 06/16/2024, 06/16/2023, 05/15/2022, Additional history exists Well Visit 65+ 06/16/2025 06/16/2024, 06/01, 06/16/2023, Additional history exists Covid-19 Vaccine ( season) 2025 04/30/2024, 05/22/2023, 05/10/2022, Additional history exists Postponed [...] unspecified Lumbar radiculopathy GI - RESULT 12/14/2024 COLONOSCOPY Routine 10/27/2020 US ABDOMINAL AORTA 10/26/2019 10:04 AM TEXTILE COATING MACHINE OPERATOR HEPATITIS C ANTIBODY Routine 10/18/2019 10:38 AM TEXTILE COATING MACHINE OPERATOR Need for hepatitis C screening test from Last 3 Months or Most Recently Relevant to Health Maintenance Results * Differential, auto (12/28/2024 10:58 AM CDT) Neutrophil abs 3.76 1.50 - 6.50 K/cumm Imm gran abs 0.02 0.00 - 0.10 K/cumm [facility] Lymphocyte abs 1.29 0.80 - 3.30 K/cumm [facility] Monocyte abs 0.55 0.20 - 0.80 K/cumm [facility] Eosinophil abs 0.20 0.00 - 0.50 K/cumm [facility] Basophil abs 0.05 0.00 - 0.10 K/cumm [facility] Neutrophil pct 64.0 % [facility] Comment: Interpretive Data Percent cell count reference ranges are not reported, since discordance with absolute values may lead to misinterpretation of CBC data. Current Interpretive Data was last revised on 2017. Imm gran pct 0.3 % [facility] Comment: Interpretive Data Percent cell count reference ranges are not reported, since discordance with absolute values may lead to misinterpretation of CBC data. Current Interpretive Data was last revised on 2017. Lymphocyte pct 22.0 % [facility] Comment: Interpretive Data Percent cell count reference ranges are not reported, since discordance with absolute values may lead to misinterpretation of CBC data. Current Interpretive Data was last revised on 2017. Monocyte pct 9.4 % [facility] Comment: Interpretive Data Percent cell count reference ranges are not reported, since discordance with absolute values may lead to misinterpretation of CBC data. Current Interpretive Data was last revised on 2017. Eosinophil pct 3.4 % [facility] Comment: Interpretive Data Percent cell count reference ranges are not reported, since discordance with absolute values may lead to misinterpretation of CBC data. Current Interpretive Data was last revised on 2017. Basophil pct 0.9 % [facility] Comment: Interpretive Data Percent cell count reference ranges are not reported, since discordance with absolute values may lead to misinterpretation of CBC data. Current Interpretive Data was last revised on 2017. Blood 12/28/2024 10:5 8 AM CDT 12/28/2024 12:17 PM CDT Vashti Garay NP LAB BLOOD ORDERABLES Final Re sult Performing Organization Address City/[facility] Co de Phone Number [address] [place] [address] * Iron profile w/ IBC (12/28/2024 10:58 AM CDT) Pathologist [facility] Iron 121 50 - 150 mcg/dL TIBC 346 250 - 400 mcg/dL [facility] Transferrin saturation 35 20 - 50 % [facility] Blood 12/28/2024 10:5 8 AM CDT 12/28/2024 12:18 PM CDT Vashti Garay REAL ESTATE OPERATIONS MANAGER LAB BLOOD ORDERABLES Final Re sult Performing Organization Address City/[facility] Co de Phone Number [address] [place] [address] * (ABNORMAL) CBC with auto differential (12/28/2024 10:58 AM CDT) Pathologist [facility] WBC 5.87 3.80 - 9.90 K/cumm Hgb 13.6 13.0 - 17.5 g/dL [facility] Hct 41.0 38.9 - 50.3 % [facility] Plt 257 150 - 400 K/cumm [facility] MPV 9.6 9.1 - 12.3 fL [facility] RBC 4.22(L) 4.30 - 5.80 M/cumm [facility] MCV 97.2(H) 81.3 - 96.4 fL [facility] MCH 32.2 27.1 - 33.3 pg [facility] MCHC 33.2 32.3 - 35.7 g/dL [facility] RDW CV 13.2 11.1 - 14.9 % [facility] RDW SD 47.6 35.7 - 48.1 fL [facility] NRBC abs 0.00 0.00 - 0.01 K/cumm [facility] Blood 12/28/2024 10:5 8 AM CDT 12/28/2024 12:17 PM CDT Vashti Garay NP LAB BLOOD ORDERABLES Final Re sult Performing Organization Address [facility] de Phone Number [address] [place] [address] * Folate (12/28/2024 10:58 AM CDT) Folic acid 18.7 >=5.0 ng/mL Blood 12/28/2024 10:5 8 AM CDT 12/28/2024 12:18 PM CDT Vashti Garay REAL ESTATE OPERATIONS MANAGER LAB BLOOD ORDERABLES Final Re sult Performing Organization Address [facility] de Phone Number [address] [place] [address] * Vitamin B12 (12/28/2024 10:58 AM CDT) Vitamin B12 784 230 - 1,250 pg/mL Blood 12/28/2024 10:5 8 AM CDT 12/28/2024 12:18 PM CDT Vashti Garay NP LAB BLOOD ORDERABLES Final Re sult Performing Organization Address [facility] Co de Phone Number [address] [place] [address] * XR Spine Lumbar 6 or More [...] Ever Gilbert M.D. RW T: Report ID: [id number] Reading Location: [id number] Procedure Note Ever Gilbert MD - 12/28/2024 [...] Ever Gilbert M.D. RW T: Report ID: [id number] Reading Location: [id number] Vashti Garay NP IMG XR PROCEDURES Final Resul t * GI - RESULT (12/14/2024) Anatomical Region Laterality Modality Other us Vashti Garay NP Final Result * Colonoscopy (10/27/2020) Anatomical Region Laterality Modality Other Historical Provider MD ENDOSCOPY PROCEDURES Kyra l Result * US Abdominal Aorta (10/26/2019 10:04 AM TEXTILE COATING MACHINE OPERATOR) Anatomical Region Laterality Modality Abdomen N/A Ultrasound 10/26/2019 12:3 2 PM TEXTILE COATING MACHINE OPERATOR Narrative 10/26/2019 12:34 PM TEXTILE COATING MACHINE OPERATOR Patient Name: JEAN CLAUDE MORALES Dr: Kevyn Noble PA-C D.O.B: 1945 Exam Date: 10/26/19 100 Age: 74 Sex: Male MR#: [id number] Loc: RADIOLOGY REPORT Order #[id number] Ultrasound US Abdominal Aorta Signed EXAM DESCRIPTION: [...] Moni Fuentes M.D. TB: TB Report ID: [id number] Reading Location: [id number] REPORT ELECTRONICALLY SIGNED IN OTHER VENDOR SYSTEM Resulting Agency Comment O Procedure Note Moni Fuentes MD - 10/26/2019 Patient Name: JEAN CLAUDE MORALES Celia Dr: Kevyn Noble PA-C, D.O.B: 1945 Exam Date: 10/26/19 100 Age: 74 Sex: Male MR#: [id number] Loc: RADIOLOGY REPORT Order #[id number] Ultrasound US Abdominal Aorta Signed EXAM DESCRIPTION: [...] Moni Fuentes M.D. TB: TB Report ID: [id number] Reading Location: [place] [id number] REPORT ELECTRONICALLY SIGNED IN OTHER VENDOR SYSTEM Kevyn [facility] US PROCEDURES Final Result * Hepatitis C antibody (10/18/2019 10:38 AM TEXTILE COATING MACHINE OPERATOR) Hep C Ab NONREACT NONREACTIVE [facility] Comment: Siemens CentaurX using MY (chemiluminescent immunoassay) technology. NONREACTIVE: Antibodies [...] method. Blood specimen (specimen) 10/18/2019 10:38 AM TEXTILE COATING MACHINE OPERATOR 10/18/2019 12:43 PM TEXTILE COATING MACHINE OPERATOR Narrative Resulting Agency Comment CLI Kevyn [facility] MICROBIOLOGY - GENERAL AUDRA GRUBER Final Result [place] [id number] [place], [place] [address] [phone] from Last 3 Months or Most Recently Relevant to Health Maintenance Insurance MEDICARE MEDICARE [facility] MEDICARE [facility] MEDICARE SUPPLEMENT Care Teams Detective Private Eye Relationship Specialty Start Date End Date Vashti Garay NP PCP - General Family Medicine 11/24/24
--- OUTSIDE RECORDS SUMMARY | 2025-02-28 12:02 | XMS_ITS | Encounter Summary ---
Author Organization [facility] Healthcare Address [address] [place] [address] Care Team Providers Care Credit Control Administrator Name Role Phone Vashti Garay CHISEL MORTISER OPERATOR Primary Care Provider [phone] Encounter Details Date Type Department Care Team (Late st Contact Info) Description 12/30/2024 Results Follow-Up [facility] Family Medicine at [address] [place] [address] Vashti Garay, OSCAR [address] [place] [address] [address] [place] [address] XR Spine Lumbar 6 or [...] on file Legal Sex Male 6:39 AM MUSIC PROFESSOR Gender Identity Male 10/22/2021 9:05 AM MUSIC PROFESSOR Sexual Orientation Not on file documented as of this encounter Plan of Treatment Not on file documented as of this encounter Visit Diagnoses Not on filedocumented in this encounter Care Teams Credit Control Administrator Relationship Specialty Start Date End Date Vashti Garay NP PCP - General Family Medicine 11/24/24 documented as of this encounter
--- OUTSIDE RECORDS SUMMARY | 2025-02-28 12:02 | XMS_ITS ---
Author Organization 1 OF Eddie ng [facility] Address [address] [place] [address] Care Team Providers Care Agricultural Equipment Mechanic Name Role Phone Kevyn Noble PA-C Primary Care Provider Gianfranco Murdock Unavailable [phone] Allergies No Known Allergies Results Component Value Reference Range Notes Wound culture ([employer] [facility]) Reviewed date:04/22/2024 10:25:12 PM Interpretation:Staphylococcus Aureus [...] fasciitis is possible. No evidence of osteomylitis. REASON FOR VISIT painful LT heel spur Medications Medication SIG (Take, Route, Frequency, Duration) Notes Start Date End Date Status Pantoprazole Sodium 40 MG TAKE 1 TABLET BY MOUTH EVERY DAY Oral; Duration: 90 Active Atorvastatin Calcium 40 MG Oral; Duration: 90 Active Famotidine 40 MG Oral; Duration: 90 Active Tamsulosin HCl 0.4 MG Oral; Duration: 90 Active Finasteride 5 MG Oral; Duration: 90 Active traZODone HCl 100 MG Oral; Duration: 90 Active HYDROcodone-Acetaminophen 7.5-325 MG Oral; Duration: 26 Active Sotalol HCl 120 MG Oral; Duration: 90 Active Augmentin 875-125 MG 1 tablet Orally jozef ry 12 hrs; Duration: 14 days 03/26/2024 Active Aspirin 81 Active Vitamin D-3 Active Multiple Vitamin Act maira Magnesium Oxide 400 (240 Mg) MG TAKE 1 TABLET (400 MG TOTAL) BY MOUTH 2 TIMES A DAY Oral; Duration: 90 Active Dicyclomine HCl Acti ve Vicodin Active Sertraline HCl Activ e Vital Signs Weight 184 lbs 03/26/2024 Height 72 in 03/26/2024 BMI 24.95 kg/m2 03/26/2024 Encounters Encounter Location Date Provider Diagnosis 1 OF Eddie Lemon DPM [facility] [address] [address] 03/26/2024 Gianfranco Lemon 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 Ordered STAT CT scan Plan Of Treatment Medication Medication Name Sig Start Date Stop Date Notes Augmentin 875-125 MG 1 tablet Orally jozef ry 12 hrs; Duration: 14 days 03/26/2024 Treatment Notes Assessment Notes Abscess of left foot Abscess drained and wound culture was obtained. Ordered STAT CT scan Procedure Notes * Category Sub-Category Detail Notes Incision & Drainage Location: Left foot: p lantar heel Technique: I&D abscess - compli cated (cpt 50473), Local anesthesia obtaine with __cc 1% lidocaine, Betadine prep of area performed and sterile blade used to incise tissue and purulent drainage expressed, Irrigation of wound performed with betadine solution and DSD applied Pathology / labs: Swab of wound perfor med and submitted for C&S and gram stain. Post-op instructions: Discussed and arleen mmended, daily dressing change with abx ointment of choice, Take antibiotics as directed., Limit activity and monitor for SOI. DME: Surgical shoe: Surgical shoe fi tted and dispensed - Left foot Progress Notes * KARYN PhilomenadanielDOB:1945 ( 79 yo M)Acc No.[id number]:03/26/2024 Progress Notes Patient: Domingo NESBITT Provider: Eddie Lemon DPM :1945 A ge:79 Y S ex:Male Date:03/26/2024 [facility] Pcp:Kevyn Noble PA-C Subjective: * Chief Complaints: * 1 . painful LT heel spur. * HPI: Vernon Lutz assisting with visit:: HPI/Rooming: Fiona chandra reason for visit:: 79 year old male PTO for pain on the plantar LT heel, pt thinks it might be a heel spur. Pt reports a duration of 10 days with a sharp p ain severity of 10/10. Pt reports condition is aggravated when walking. Pt reports having orthotic inserts, but it does not help because he cannot put any pressure of the heel without having pain. Pt admits using vicodin to help with the pain but he states it only alleviates about 60% of the pain. * Medical History: n europathy of feet, arthritis of thumb joints, Degenerative disc disease, sick sinus syndrome (w/ pacemaker). * Medications: T aking Sertraline HCl , Taking Vicodin , Taking [...] BY MOUTH EVERY DAY Oral , Discontinued busPIRone HCl 7.5 MG Tablet Oral , Discontinued hydroCHLOROthiazide 12.5 MG Capsule Oral , Medication List reviewed and reconciled with [...] appropriate response to questions. Shoes today: s lip on shoes. L ower Extremity VASCULAR: : Pulses: D P pulse diminished bilateral; PT pulse absent bilateral. Temperature gradient: d ecreased from proximal to distal bilateral. Pedal hair: s parse / absent bilateral. Venous insufficiency edema: i nsignificant bilateral. ? L ower Extremity DERM: : Skin: r elatively dry, thin, atrophic, no suspicious lesions, bilateral. Nails: N ail plates of:TA-C2gpydsp relatively thickened, dystrophic, discolored, incurvated. . Hyperkeratotic lesions LEFT foot: n o significant hpk lesions noted. Hyperkeratotic lesions RIGHT foot: n o significant hpk lesions noted. L ower Extremity NEURO: : General sensation appears d iminished, to 10 gram monofilament at plantar forefoot , to vibrating tuning fork at distal hallux . Muscle tone d iminished bilateral. Monofilament test (10 gram pressure) E xam of 03/26/2024: , - - revealed absent sensation to at least two distinct locations of, multiple toes, bilateral. Vibration perception: - - noted significantly diminished / absent per evaluation with 128Hz tuning fork applied to distal hallux compared to ipsilateral medial malleolus, @ bilateral feet. L ower Extremity MSK: : Foot type: B ilateral lower extremity exhibits. ? D iagnostic Studies: : X-rays of left lower extremity: 3 views of left foot: .? Ultrasound ([employer]): A samreen/s scanned:The plantarLEFTheel was evaluated utilizing a 10 - 18 MHz probe. The plantar aspect of the foot was scanned concentrating on the heel. A series of sagittal and transverse images were obtained.Report:Ultrasound examination reveals an abcess. This was easily seen in both the longitudinal and transverse scans. Impression:Abcess left foot. Assessment: * Assessment: 1. 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 P ain in joint, foot, left - M25.572 3 . A bscess of left foot - L02.612 Plan: * Treatment: * Procedures: I ncision & Drainage: Location: L eft foot: plantar heel. Technique: I &D abscess - complicated (cpt 67107), Local anesthesia obtaine with __cc 1% lidocaine, Betadine prep of area performed and sterile blade used to incise tissue and purulent drainage expressed, Irrigation of wound performed with betadine solution and DSD applied. Pathology / labs: S wab of wound performed and submitted for C&S and gram stain.. Post-op instructions: D iscussed and recommended, daily dressing change with abx ointment of choice, Take antibiotics as directed., Limit activity and monitor for SOI.. D ME:: Surgical shoe: S urgical shoe fitted and dispensed - Left foot. * Procedure Codes: 7 3630 X-RAY FOOT (3 views), Modifiers: LT , L3260 Ambulatory surgical boot eac, Modifiers: LT , 61375 US XTR NON-VASC LMTD, Modifiers: LT * Images: * Electronic signature of Marily Lemon DPM on 02/28/2025 at 12:01 PM CDT Sign off status: Pending * Provider: Eddie Lemon DPM Date: 03/26/2024 Generated for Mina fofana/Yakov/Florinda on: 0 02/28/2025 12:01 PM CDT History and Physical Notes * HPI (History of Present Illness) Category Sub-Category Detail Notes Category Not es Primary reason for visit: 79 year old male PTO for pain on the plantar LT heel, pt thinks it might be a heel spur. Pt reports a duration of 10 days with a sharp pain severity of 10/10. Pt reports condition is aggravated when walking. Pt reports having orthotic inserts, but it does not help because he cannot put any pressure of the heel without having pain. Pt admits using vicodin to help with the pain but he states it only alleviates about 60% of the pain. MA assisting with visit: HPI/Rooming: Santos Examination Category Sub-Category Detail Notes Category Not es General Examination Mental status: Cooperative, Oriented to person, place and time, Mood and affect: normal, Judgement and intellect: normal with appropriate response to questions Shoes today: slip on shoes Constitutional / Appearance: No acute di stress , Well nourished, Appropriate personal hygiene Lower Extremity VASCULAR: Venous insufficiency edema: insignificant bilateral Pulses: DP pulse diminished bilateral; PT pulse absent bilateral Temperature gradient: decreased from pro ximal to distal bilateral Pedal hair: sparse / absent bila teral Lower Extremity NEURO: Monofilament test (10 gram pressure) Exam of 03/26/2024: , - - revealed absent sensation to at least two distinct locations of, multiple toes, bilateral Vibration perception: - - noted signific antly diminished / absent per evaluation with 128Hz tuning fork applied to distal hallux compared to ipsilateral medial malleolus, @ bilateral feet General sensation appears diminished, to 10 gram monofilament at plantar forefoot , to vibrating tuning fork at distal hallux Muscle tone diminished bilateral Lower Extremity MSK: Foot type: Bilateral lower extr emity exhibits Diagnostic Studies: X-rays of left lower extremity: 3 views of left foot: Ultrasound ([facility]): Area/s scan ty: The plantar LEFT heel was evaluated utilizing a 10 - 18 MHz probe. The plantar aspect of the foot was scanned concentrating on the heel. A series of sagittal and transverse images were obtained. Report: Ultrasound examination reveals an abcess. This was easily seen in both the longitudinal and transverse scans. Impression: Abcess left foot Lower Extremity DERM: Skin: relatively dry, thin, atrophic, no suspicious lesions, bilateral Nails: Nail plates of: TA-T 9 appear relatively thickened, dystrophic, discolored, incurvated. Hyperkeratotic lesions LEFT foot: no sig nificant hpk lesions noted Hyperkeratotic lesions RIGHT foot: no si gnificant hpk lesions noted
--- OUTSIDE RECORDS SUMMARY | 2025-02-28 12:02 | XMS_ITS | Patient Health Record ---
Author Organization 1 OF Eddie ng [facility] Address [address] [facility] [address] [place] [address] Care Team Providers Care Learning Disabled Teacher Name Role Phone Kevyn Noble PA-C Primary Care Provider Gianfranco Murdock Unavailable Allergies No Known Allergies Results Component Value Reference Range Notes Wound culture ([employer]) Reviewed date:04/22/2024 10:25:12 PM Interpretation:Staphylococcus Aureus [...] Date End Date Status HYDROcodone-Acetaminophen 7.5-325 MG Oral; Duration: 26 Active traZODone HCl 100 MG Oral; Duration: 90 Active Magnesium Oxide 400 (240 Mg) MG TAKE 1 TABLET (400 MG TOTAL) BY MOUTH 2 TIMES A DAY Oral; Duration: 90 Active Sotalol HCl 120 MG Oral; Duration: 90 Active Vicodin Active Famotidine 40 MG Oral; Duration: 90 Active Dicyclomine HCl Acti ve Atorvastatin Calcium 40 MG Oral; Duration: 90 Active Mupirocin 2 % apply to affected ar ea Externally apply with every dressing change at least every other day 04/01/2024 Active Finasteride 5 MG Oral; Duration: 90 Active Sertraline HCl Activ e Tamsulosin HCl 0.4 MG Oral; Duration: 90 Active Aspirin 81 Active Multiple Vitamin Act maira Pantoprazole Sodium 40 MG TAKE 1 TABLET BY MOUTH EVERY DAY Oral; Duration: 90 Active Vitamin D-3 Active Social History Tobacco Use: Social History Observation Description Date Details (start date - stop date) Former Smoker NA - NA Tobacco Use/Smoking Question Answer Notes Are you a former smoker Problems Problem Type SNOMED Code ICD Code Onset Dates Problem Status W/U Status Risk Notes Problem Idiopathic progressive polyneuropathy (44673319) 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 Problem 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 confirmed Problem Skin ulcer of left heel with fat layer exposed (L97.422) Active confirmed Vital Signs Height 72 in 04/09/2024 Weight 184 lbs 04/09/2024 BMI 24.95 kg/m2 04/09/2024 Encounters Encounter Location Date Provider Diagnosis 1 OF Eddie Lemon DPM [facility] [address] [address] 03/26/2024 Gianfranco Lemon 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 ; Pain in joint, foot, left M25.572 and Abscess of left foot L02.612 1 OF Eddie Thomas [place] [address] [place] [address] [place] [phone] 04/01/2024 Ramsesvandana Ion 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 ; Skin ulcer of left heel with fat layer exposed L97.422 and Staph infection B95.8 1 OF Eddie Thomas [place] [address] [place] [address] [place] [phone] 04/09/2024 Ramsesvandana Ion 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 [place], [place] [id number] Domingo Morales Self - patient is the insured [facility] [address] [place] [phone] [id number] Domingo Morales Self - patient is the insured Medical (General) History Medical History History ICD Code neuropathy of feet, arthriti s of thumb joints, Degenerative disc disease, sick sinus syndrome (w/ pacemaker) Surgical History Surgery Date(Month/Year) pacemaker placement
--- OUTSIDE RECORDS SUMMARY | 2025-02-28 12:02 | XMS_ITS | Referral Summary ---
Author Organization [facility] Address [address] [place] [phone] Care Team Providers Care Senior Client Advisor Name Role Phone Vashti Garay NP Primary Care Provider [phone] Encounters Date Type Department Care Team Description 02/02/2025 10:30 AM CDT Office Visit [facility] Family Medicine at [address] [place] [phone] Vashti Garay NP Other polyneuropathy (Primary Dx); RESHMA (generalized anxiety disorder); Benign prostatic hyperplasia without lower urinary tract symptoms; Mixed hyperlipidemia; Healthcare maintenance; Need for hepatitis B screening test; Screening for prostate cancer; Bilateral thumb pain 01/27/2025 Orders Only [facility] Family Medicine at [address] [place] [phone] Vashti Garay NP Other polyneuropathy (Primary Dx); Lumbar radiculopathy 01/26/2025 Telephone [facility] Family Medicine at [address] [place] [address] Vashti Garay NP 01/19/2025 Orders Only [facility] Family Medicine at [address] [place] [address] Vashti Garay NP Other chronic pain 12/30/2024 Results Follow-Up [facility] Family Medicine at [place] [place] [address] Vashti Garay NP Vitamin B12, Folate, CBC with auto differential, Additional followed-up results: 2 12/30/2024 Results Follow-Up [facility] Family Medicine at [address] [place] [address] Vashit Garay NP XR Spine Lumbar 6 or More Views 12/28/2024 10:45 AM CDT Lab [facility]ldg [address] [place] [id number] Other polyneuropathy; Nutritional anemia, unspecified 12/28/2024 10:23 AM CDT - 12/28/2024 11:59 PM CDT Hospital Encounter [facility] [address] [place] [phone] Other polyneuropathy; Nutritional anemia, unspecified; Lumbar radiculopathy Discharge Disposition: Discharge to home or self care 12/22/2024 11:30 AM CDT Office Visit [facility] Family Medicine at [address] [place] [address] Vashti Garay NP Other polyneuropathy (Primary Dx); Nutritional anemia, unspecified; Lumbar radiculopathy; 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 pain 12/17/2024 Results Follow-Up [facility] Family Medicine at [address] [place] [address] Vashti Garay NP GI - RESULT 12/14/2024 Orders Only [facility] Health Information Management [address] [place] [address] Vashti Garay NP from Last 3 Months Allergies No known [...] Active Restasis 0.05 % ophthalmic emulsion 07/17/20 Active aspirin 81 mg enteric coated tablet [...] as needed for pain 90 tablet 01/28/20 25 025 Discontin ued(Thera py completed ) Active Problems Problem Noted Date Diagnosed Date Pain of left thumb 02/02/2025 GERD (gastroesophageal reflux disease) Foot pain, bilateral 11/14/2023 Dysphagia 05/08/2023 Esophagogastric [...] & Plan (02/05/2023 2:06 PM CDT): Now grieving will add low dose zoloft Assessment & [...] 01/21/2020 Assessment & Plan (07/29/2023 3:39 PM FLIGHT NURSE): This is a stable chronic condition. Monitor [...] routine Assessment & Plan (09/30/2022 4:18 PM FLIGHT NURSE): Images from the original note were not [...] consider Assessment & Plan (07/29/2023 3:39 PM FLIGHT NURSE): This is diet controlled Assessment & Plan (03/19/2023 9:34 AM CDT): Currently controlled with diet will continue to follow Assessment & Plan (02/05/2023 2:05 PM CDT): Diet controlled Assessment & Plan (11/14/2022 9:20 AM CDT): controlled Assessment & Plan (09/30/2022 4:18 PM FLIGHT NURSE): Diet controlled Assessment & Plan (05/15/2022 11:44 AM CDT): Controlled with diet Assessment & Plan (04/09/2022 4:32 PM CDT): Diet and fiber Assessment & Plan (11/07/2021 1:51 PM FLIGHT NURSE): Diet controlled Assessment & Plan (04/18/2020 9:57 AM CDT): This is currently controlled with diet will continue to follow BMI 26.0-26.9,adult 06/11/2018 Assessment & Plan (10/19/2020 9:59 AM FLIGHT NURSE): Healthy diet Benign prostatic hyperplasia 03/30/2018 Assessment & Plan (04/09/2022 4:32 PM CDT): Well controlled Assessment & Plan (04/24/2021 10:03 AM CDT): Stable and continue meds Assessment & Plan (10/19/2020 9:58 AM FLIGHT NURSE): Controlled with meds Assessment & Plan (04/18/2020 [...] 03/30/2018 Assessment & Plan (07/29/2023 3:39 PM FLIGHT NURSE): Patient is to continue present medications, work [...] routine. Assessment & Plan (09/30/2022 4:18 PM FLIGHT NURSE): Patient is to continue present medications, work [...] routine. Assessment & Plan (10/19/2020 9:58 AM FLIGHT NURSE): Patient is to continue present medications, work [...] office. Follow up routine. Sick sinus syndrome ([facility]) 03/30/2018 Overview (02/15/2019): seeing cardiology, has pace maker Assessment & Plan (02/05/2023 2:05 PM CDT): Stable and seeing cardiology Assessment & Plan (05/15/2022 11:46 AM CDT): Patient is stable and had pace maker Assessment & Plan (04/09/2022 4:33 PM CDT): Stable seeing cardiology Assessment & Plan (11/07/2021 1:51 PM FLIGHT NURSE): Seeing cardiology Assessment & Plan (04/24/2021 10:04 AM CDT): Cardiology following Assessment & Plan (10/19/2020 9:58 AM FLIGHT NURSE): Seeing cardiology and doing well Assessment & Plan (04/18/2020 9:58 AM CDT): Patient is asymptomatic and followed by cardiology and on a baby aspirin Assessment & Plan (12/27/2019 10:32 AM CDT): Has pacemaker, seeing Cardiology 20 january Assessment & Plan (12/13/2019 10:20 AM CDT): Patient has a pacemaker and he is asymptomatic in clinic today I have a message out to his hand trimmer and I am faxing over the EKG [...] 11/14/2017 Assessment & Plan (07/29/2023 3:40 PM FLIGHT NURSE): Patient is very legitimate and has had a really hard time with this and I see no reason to even try to taper as is the only thing that gives him relief. My collaborating partner is moving away from jail pain management therefore I also have to do the same I offered patient to go see a pain management specialists he was not happy about this he asked if there was someone else I told him about my previous partner at [facility] Dr. Joe Roe I let him know [...] ordered Assessment & Plan (09/30/2022 4:19 PM FLIGHT NURSE): This is chronic, exhausted everything Patient and [...] neurology Assessment & Plan (11/07/2021 1:51 PM FLIGHT NURSE): Chronic ongoing Assessment & Plan (12/28/2020 3:31 [...] 10/13/2015 Assessment & Plan (11/07/2021 1:51 PM FLIGHT NURSE): Patient is to continue present medications, work [...] 11/24/2024 Assessment & Plan (10/19/2020 10:05 AM FLIGHT NURSE): Currently not an issue, if this becomes [...] neuropathy Assessment & Plan (10/19/2020 9:58 AM FLIGHT NURSE): Taking as needed medical marijuna, not daily, [...] depression Assessment & Plan (10/19/2020 9:58 AM FLIGHT NURSE): No depression Assessment & Plan (04/18/2020 9:57 [...] DDD Assessment & Plan (09/30/2022 4:19 PM FLIGHT NURSE): Patient and I had a discussion about [...] meds Assessment & Plan (11/07/2021 1:50 PM FLIGHT NURSE): This is chronic, he failed PY, did [...] and wished to continue current treatment. Other intermediate school teacher (current) drug therapy 11/01/2016 11/24/2024 Chest pain [...] on file Legal Sex Male 6:39 AM FLIGHT NURSE Gender Identity Male 10/22/2021 9:05 AM FLIGHT NURSE Sexual Orientation Not on file Last Filed [...] 02/02/2025 10:29 AM CDT Plan of Treatment Not on [...] 10/27/2020 US ABDOMINAL AORTA 10/26/2019 10:04 AM FLIGHT NURSE HEPATITIS C ANTIBODY Routine 10/18/2019 10:38 AM FLIGHT NURSE Need for hepatitis C screening test from Last 3 Months or Most Recently Relevant to Health Maintenance Results * Differential, auto (12/28/2024 10:58 AM CDT) Pathologist [facility] Neutrophil abs 3.76 1.50 - 6.50 K/cumm Imm gran abs 0.02 0.00 - 0.10 K/cumm [facility] Lymphocyte abs 1.29 0.80 - 3.30 K/cumm [facility] Monocyte abs 0.55 0.20 - 0.80 K/cumm [facility] Eosinophil abs 0.20 0.00 - 0.50 K/cumm [facility] Basophil abs 0.05 0.00 - 0.10 K/cumm [facility] Neutrophil pct 64.0 % [facility] Comment: Interpretive Data Percent cell count reference ranges are not reported, since discordance with absolute values may lead to misinterpretation of CBC data. Current Interpretive Data was last revised on 2017. Imm gran pct 0.3 % [facility] Comment: Interpretive Data Percent cell count reference ranges are not reported, since discordance with absolute values may lead to misinterpretation of CBC data. Current Interpretive Data was last revised on 2017. Lymphocyte pct 22.0 % [facility] Comment: Interpretive Data Percent cell count reference ranges are not reported, since discordance with absolute values may lead to misinterpretation of CBC data. Current Interpretive Data was last revised on 2017. Monocyte pct 9.4 % [facility] Comment: Interpretive Data Percent cell count reference ranges are not reported, since discordance with absolute values may lead to misinterpretation of CBC data. Current Interpretive Data was last revised on 2017. Eosinophil pct 3.4 % [facility] Comment: Interpretive Data Percent cell count reference ranges are not reported, since discordance with absolute values may lead to misinterpretation of CBC data. Current Interpretive Data was last revised on 2017. Basophil pct 0.9 % [facility] Comment: Interpretive Data Percent cell count reference ranges are not reported, since discordance with absolute values may lead to misinterpretation of CBC data. Current Interpretive Data was last revised on 2017. Blood 12/28/2024 10:5 8 AM CDT 12/28/2024 12:17 PM CDT Vashti Garay LAB BLOOD ORDERABLES Final Re sult Performing Organization Address [facility]/ZIP Co de Phone Number [address] [place] [address] * Iron profile w/ IBC (12/28/2024 10:58 AM CDT) Pathologist [facility] Iron 121 50 - 150 mcg/dL TIBC 346 250 - 400 mcg/dL [facility] Transferrin saturation 35 20 - 50 % [facility] Blood 12/28/2024 10:5 8 AM CDT 12/28/2024 12:18 PM CDT Vashti Garay ELECTRICAL AND INSTRUMENT ENGINEER LAB BLOOD ORDERABLES Final Re sult Performing Organization Address City/[facility] Co de Phone Number [address] [address] * (ABNORMAL) CBC with auto differential (12/28/2024 10:58 AM CDT) Pathologist [facility] WBC 5.87 3.80 - 9.90 K/cumm Hgb 13.6 13.0 - 17.5 g/dL [facility] Hct 41.0 38.9 - 50.3 % [facility] Plt 257 150 - 400 K/cumm [facility] MPV 9.6 9.1 - 12.3 fL [facility] RBC 4.22(L) 4.30 - 5.80 M/cumm [facility] MCV 97.2(H) 81.3 - 96.4 fL [facility] MCH 32.2 27.1 - 33.3 pg [facility] MCHC 33.2 32.3 - 35.7 g/dL [facility] RDW CV 13.2 11.1 - 14.9 % [facility] RDW SD 47.6 35.7 - 48.1 fL [facility] NRBC abs 0.00 0.00 - 0.01 K/cumm [facility] Blood 12/28/2024 10:5 8 AM CDT 12/28/2024 12:17 PM CDT Vashti Garay ELECTRICAL AND INSTRUMENT ENGINEER LAB BLOOD ORDERABLES Final Re sult Performing Organization Address [facility] Co de Phone Number [address] [place] [address] * Folate (12/28/2024 10:58 AM CDT) Folic acid 18.7 >=5.0 ng/mL Blood 12/28/2024 10:5 8 AM CDT 12/28/2024 12:18 PM CDT Vashti Garay ELECTRICAL AND INSTRUMENT ENGINEER LAB BLOOD ORDERABLES Final Re sult Performing Organization Address [facility] Co de Phone Number [address] [place] [address] * Vitamin B12 (12/28/2024 10:58 AM CDT) Vitamin B12 784 230 - 1,250 pg/mL Blood 12/28/2024 10:5 8 AM CDT 12/28/2024 12:18 PM CDT Vashti Garay ELECTRICAL AND INSTRUMENT ENGINEER LAB BLOOD ORDERABLES Final Re sult Performing Organization Address City/[facility] Co de Phone Number [address] [place] [address] * XR Spine Lumbar 6 or More [...] Ever Gilbert M.D. RW T: Report ID: [id number] Reading Location: [id number] Procedure Note Ever Gilbert MD - 12/28/2024 [...] Ever Gilbert M.D. RW T: Report ID: [id number] Reading Location: [id number] Vashti Garay ELECTRICAL AND INSTRUMENT ENGINEER IMG XR PROCEDURES Final Resul t * GI - RESULT (12/14/2024) Anatomical Region Laterality Modality Other us Vashti Garay NP Final Result * Colonoscopy (10/27/2020) Anatomical Region Laterality Modality Other Historical Provider MD ENDOSCOPY PROCEDURES Kyra l Result * US Abdominal Aorta (10/26/2019 10:04 AM FLIGHT NURSE) Anatomical Region Laterality Modality Abdomen N/A Ultrasound 10/26/2019 12:3 2 PM FLIGHT NURSE Narrative 10/26/2019 12:34 PM FLIGHT NURSE Patient Name: JEAN CLAUDE MORALES Dr: Kevyn Noble PA-C, D.O.B: 1945 Exam Date: 10/26/19 100 Age: 74 Sex: Male MR#: [id number] Loc: RADIOLOGY REPORT Order #[id number] Ultrasound US Abdominal Aorta Signed EXAM DESCRIPTION: [...] Moni Fuentes M.D. TB: DWAYNE Report ID: [id number] Reading Location: [place] [address] REPORT ELECTRONICALLY SIGNED IN OTHER VENDOR SYSTEM Resulting Agency Comment O Procedure Note Moni Fuentes MD - 10/26/2019 Patient Name: JEAN CLAUDE MORALES Dr: Kevyn Noble PA-C, D.O.B: 1945 Exam Date: 10/26/19 1004 Age: 74 Sex: Male MR#: [id number] Loc: RADIOLOGY REPORT Order #[id number] Ultrasound US Abdominal Aorta Signed EXAM DESCRIPTION: [...] Moni Fuentes M.D. TB: TB Report ID: [id number] Reading Location: [place] [address] REPORT ELECTRONICALLY SIGNED IN OTHER VENDOR SYSTEM Kevyn FULLER [facility] [place] [place] US PROCEDURES Final Result * Hepatitis C antibody (10/18/2019 10:38 AM FLIGHT NURSE) Hep C Ab NONREACT NONREACTIVE [facility] Comment: Siemens CentaurX using MY (chemiluminescent immunoassay) [...] method. Blood specimen (specimen) 10/18/2019 10:38 AM FLIGHT NURSE 10/18/2019 12:43 PM FLIGHT NURSE Narrative Resulting Agency Comment CLI Kevyn FULLER LAB MICROBIOLOGY - GENERAL AURDA GRUBER Final Result [facility] [address] [place], [place] [address] [phone] from Last 3 Months or Most Recently Relevant to Health Maintenance Insurance MEDICARE MEDICARE PENDING SALE TO [facility] MEDICARE [facility] MEDICARE SUPPLEMENT Member Subscriber Plan / Payer (Ef fective 2019-Present) Name:Jean Claude Morales Relation to Subscriber:Self Name:Jean Claude Morales Payer ID:[id number] Group ID:[id number] Type:COMMERCIAL Address: [facility] [id number] [place] [id number] Care Teams Senior Client Advisor Relationship Specialty Start Date End Date Vashti Garay NP PCP - General Family Medicine 11/24/24
== END 2025-02-28 11:47 | disposition home or self-care (01) ==
PROVIDERS: Visit Provider Urology
DX: R93.5 Abnormal findings on diagnostic imaging of other abdominal regions, including retroperitoneum (principal); N20.0 Calculus of kidney
CPT/HCPCS: 74018